=== PATIENT | male | born 1955 | race Caucasian/White ===

== ENCOUNTER → 2020-08-11 11:11 | Outpatient (BNV) | payer MEDICARE, MEDICAID, SELFPAY | PROVIDERS: PCP Internal Medicine; Visit Provider Internal Medicine Medical Oncology | DX: E83.119 Hemochromatosis, unspecified (principal) | CPT/HCPCS: 99213; 99214 ==

== ENCOUNTER 2020-08-15 13:39 | Outpatient (REF) | payer MEDICARE, MEDICAID, SELFPAY | END 2020-08-15 13:40 | disposition home or self-care (01) | LOC: HO.BBR 13:39 | PROVIDERS: Visit Provider Internal Medicine Medical Oncology | DX: Z13.89 Encounter for screening for other disorder (principal) ==

== ENCOUNTER 2020-11-10 09:47 | Outpatient (REF) | payer MEDICARE, MEDICAID, SELFPAY | END 2020-11-10 09:48 | disposition home or self-care (01) | LOC: HO.BBR 09:47 | PROVIDERS: Visit Provider Internal Medicine Medical Oncology | DX: Z13.89 Encounter for screening for other disorder (principal) ==

== ENCOUNTER 2021-01-10 10:49 | Outpatient (REF) | payer MEDICARE, MEDICAID, SELFPAY | END 2021-01-10 10:50 | disposition home or self-care (01) | LOC: HO.BBR 10:49 | PROVIDERS: Visit Provider Internal Medicine Medical Oncology | DX: Z13.89 Encounter for screening for other disorder (principal) ==

== ENCOUNTER 2021-03-30 14:06 | Outpatient (REF) | payer MEDICARE, MEDICAID, SELFPAY | END 2021-03-30 14:07 | disposition home or self-care (01) | LOC: HO.BBR 14:06 | PROVIDERS: PCP Internal Medicine; Visit Provider Internal Medicine Medical Oncology | DX: Z13.89 Encounter for screening for other disorder (principal) ==

== ENCOUNTER 2021-06-13 10:55 | Outpatient (REF) | payer MEDICARE, MEDICAID, SELFPAY | END 2021-06-13 10:56 | disposition home or self-care (01) | LOC: HO.BBR 10:55 | PROVIDERS: Visit Provider Internal Medicine Medical Oncology | DX: Z13.89 Encounter for screening for other disorder (principal) ==

== ENCOUNTER 2021-08-14 08:48 | Outpatient (REF) | payer MEDICARE, MEDICAID, SELFPAY | END 2021-08-14 08:49 | disposition home or self-care (01) | LOC: HO.BBR 08:48 | PROVIDERS: Visit Provider Internal Medicine Medical Oncology | DX: Z13.89 Encounter for screening for other disorder (principal) ==

== ENCOUNTER 2021-10-12 09:39 | Outpatient (REF) | payer MEDICARE, SELFPAY ==
[2021-10-12 11:42] LABS: Anion Gap 12 (12-20); Blood Urea Nitrogen 16 mg/dL (9-16); Calcium 9.8 mg/dL (8.4-10.2); Carbon Dioxide 29 mmol/L (22-29); Chloride 104 mmol/L (96-108); Estimated Glomerular Filt Rate > 60; Glucose Fasting 84 mg/dL (60-99); Potassium 4.4 mmol/L (3.3-5.1); Sodium 141 mmol/L (135-145)
[2021-10-12 12:07] LABS: Vitamin D 25-OH Total 17.9 ng/mL (>30)
[2021-10-12 12:10] LABS: HBsAGNum1 0.25 S/CO (0.00-0.99); Hepatitis B Surface Antigen Negative (Negative); ~HepC Num1 13.88 S/CO (0.00-0.79); ~Hepatitis C Antibody Reactive (Nonreactive)
[2021-10-12 12:14] LABS: HBc Num1 9.38 S/CO (0.00-0.79)
[2021-10-12 12:39] LABS: Vitamin B12 419 pg/mL (200-900)
[2021-10-12 13:16] LABS: HBS Num2 8.99 mIU/mL (0-7.99); HBS Num3 8.67 mIU/mL (0-7.99); HBc Num2 9.05 S/CO; HBc Num3 9.21 S/CO; Hepatitis B Core Antibody Reactive (Nonreactive); ~Hepatitis B Surface Antibody GRAYZONE (Nonreactive)
[2021-10-13 07:27] LABS: Hepatitis B Core Antibody IgM NON-REACTIVE (NON-REACTIVE)
== END 2021-10-12 09:40 | disposition home or self-care (01) ==
LOC: HO.HMGCLDS 09:39
PROVIDERS: PCP Internal Medicine; Visit Provider Internal Medicine
DX: R63.6 Underweight (principal); Z86.19 Personal history of other infectious and parasitic diseases; Z90.49 Acquired absence of other specified parts of digestive tract
CPT/HCPCS: 36415; 80048; 82306; 82607; 82746; 86704; 86705; 86706; 86803; 87340

== ENCOUNTER 2021-11-13 09:13 | Outpatient (REF) | payer MEDICARE, SELFPAY ==
[2021-11-13 09:37] LABS: MANUAL DIFF FLAG NO
[2021-11-13 09:38] LABS: Basophils Absolute Auto 0.1 X10*3/uL (0.0-0.2); Basophils Percent Auto 1.5 % (0-2); Eosinophils Absolute Auto 0.1 X10*3/uL (0.0-0.4); Eosinophils Percent Auto 2.3 % (0-4); Hematocrit 44.6 % (42.0-52.0); Hemoglobin 15.6 g/dl (14.0-18.0); Imm Gran Abs Auto 0.02 X10*3/uL (0.00-0.03); Imm Gran Pct Auto 0.3 % (0.0-0.4); Lymphocytes Absolute Auto 1.4 X10*3/uL (1.2-4.9); Lymphocytes Percent Auto 23.2 % (20-40); Mean Corpuscular Hemoglobin 34.4 pg (27.0-33.0); Mean Corpuscular Volume 98.5 fL (80.0-98.0); Mean Platelet Volume 9.3 fL (9.4-12.4); Monocytes Absolute Auto 0.4 X10*3/uL (0.1-1.2); Monocytes Percent Auto 6.7 % (2-11); Neutrophils Absolute Auto 3.9 x10*3/uL (2.0-8.3); Platelet Count 219 X10*3/uL (160-400); Red Blood Count 4.53 X10*6/uL (4.60-5.80); Red Cell Distribution Width 11.9 % (11.0-16.0)
[2021-11-13 11:36] LABS: Iron 205 mcg/dL (45-160); Percent Iron Saturation 83 % (15-50); Total Iron Binding Capacity 247 mcg/dL (228-428); Unsaturated Iron Binding 42 ug/dL
[2021-11-13 12:03] LABS: Ferritin 37 ng/mL (20-250)
== END 2021-11-13 09:14 | disposition home or self-care (01) ==
LOC: HO.BBR 09:13
PROVIDERS: Visit Provider Internal Medicine Medical Oncology
DX: E83.110 Hereditary hemochromatosis (principal)
CPT/HCPCS: 36415; 82728; 83540; 85025

== ENCOUNTER 2022-02-13 08:54 | Outpatient (REF) | payer MEDICARE, SELFPAY ==
[2022-02-13 09:43] LABS: MANUAL DIFF FLAG NO
[2022-02-13 09:46] LABS: Basophils Absolute Auto 0.1 X10*3/uL (0.0-0.2); Basophils Percent Auto 1.4 % (0-2); Eosinophils Absolute Auto 0.3 X10*3/uL (0.0-0.4); Eosinophils Percent Auto 5.2 % (0-4); Hematocrit 41.8 % (42.0-52.0); Hemoglobin 14.4 g/dl (14.0-18.0); Imm Gran Abs Auto 0.01 X10*3/uL (0.00-0.03); Imm Gran Pct Auto 0.2 % (0.0-0.4); Lymphocytes Absolute Auto 1.3 X10*3/uL (1.2-4.9); Lymphocytes Percent Auto 23.5 % (20-40); Mean Corpuscular HGB Conc 34.4 g/dl (31.0-36.0); Mean Corpuscular Hemoglobin 34.2 pg (27.0-33.0); Mean Corpuscular Volume 99.3 fL (80.0-98.0); Mean Platelet Volume 9.6 fL (9.4-12.4); Monocytes Absolute Auto 0.5 X10*3/uL (0.1-1.2); Monocytes Percent Auto 8.6 % (2-11); Neutrophils Absolute Auto 3.4 x10*3/uL (2.0-8.3); Neutrophils Percent Auto 61.1 % (45-73); Platelet Count 218 X10*3/uL (160-400); Red Blood Count 4.21 X10*6/uL (4.60-5.80); Red Cell Distribution Width 11.9 % (11.0-16.0); White Blood Count 5.6 X10*3/uL (4.8-10.8)
[2022-02-13 10:27] LABS: Iron 219 mcg/dL (45-160); Total Iron Binding Capacity < 236 mcg/dL (228-428); Unsaturated Iron Binding < 17 ug/dL
[2022-02-13 10:41] LABS: Ferritin 40 ng/mL (20-250)
== END 2022-02-13 08:55 | disposition home or self-care (01) ==
LOC: HO.BBR 08:54
PROVIDERS: Visit Provider Internal Medicine Medical Oncology
DX: E83.110 Hereditary hemochromatosis (principal)
CPT/HCPCS: 36415; 82728; 83540; 85025

== ENCOUNTER 2022-04-20 08:26 | Outpatient (REF) | payer MEDICARE, SELFPAY ==
--- NOTE | ~2022-04-20 | XR_ITS ---
EXAMINATION: XR LUMBOSACRAL SPINE CLINICAL INFORMATION: Radiculopathy lumbar region COMPARISON: None TECHNIQUE: Three views of the lumbosacral spine. FINDINGS: There is mild straightening of lumbar lordosis. There is grade 1 anterolisthesis of L3 over L4. The rest of the vertebral alignment is normal. There is loss of L2-L3 and L4-L5 disc heights with moderate ventral spondylosis. There is minimal dextroscoliosis lower lumbar spine. Mild canal stenosis suspected at the L3-L4, L4-L5 and L5/S1 disc levels. No visible acute fracture or lytic process seen. XR/XR lumbar spine 2-3V IMPRESSION: 1. Grade 1 anterolisthesis L3 over L4. 2. Degenerative disc changes L2-L3, L4-L5 and moderate ventral spondylosis. Suspect mild canal stenosis L3-L4, L4-L5 and likely L5-S1 disc levels. 3. There is mild dextroscoliosis, lower lumbar spine.
== END 2022-04-20 08:27 | disposition home or self-care (01) ==
LOC: HO.HMGCX 08:26
PROVIDERS: PCP Internal Medicine; Visit Provider Internal Medicine
DX: M54.16 Radiculopathy, lumbar region (principal)
CPT/HCPCS: 72100

== ENCOUNTER 2022-05-18 07:58 | Outpatient (REF) | payer MEDICARE, SELFPAY ==
[2022-05-18 08:06] LABS: MANUAL DIFF FLAG NO
[2022-05-18 08:13] LABS: Basophils Absolute Auto 0.1 X10*3/uL (0.0-0.2); Basophils Percent Auto 1.1 % (0-2); Eosinophils Absolute Auto 0.3 X10*3/uL (0.0-0.4); Eosinophils Percent Auto 5.7 % (0-4); Hematocrit 44.8 % (42.0-52.0); Hemoglobin 15.5 g/dl (14.0-18.0); Imm Gran Abs Auto 0.01 X10*3/uL (0.00-0.03); Imm Gran Pct Auto 0.2 % (0.0-0.4); Lymphocytes Absolute Auto 1.4 X10*3/uL (1.2-4.9); Lymphocytes Percent Auto 26.3 % (20-40); Mean Corpuscular HGB Conc 34.6 g/dl (31.0-36.0); Mean Corpuscular Hemoglobin 34.1 pg (27.0-33.0); Mean Corpuscular Volume 98.5 fL (80.0-98.0); Mean Platelet Volume 9.1 fL (9.4-12.4); Monocytes Absolute Auto 0.6 X10*3/uL (0.1-1.2); Monocytes Percent Auto 10.7 % (2-11); Platelet Count 238 X10*3/uL (160-400); Red Blood Count 4.55 X10*6/uL (4.60-5.80); Red Cell Distribution Width 12.1 % (11.0-16.0); White Blood Count 5.4 X10*3/uL (4.8-10.8)
[2022-05-18 09:24] LABS: Iron 240 mcg/dL (45-160); Total Iron Binding Capacity < 257 mcg/dL (228-428); Unsaturated Iron Binding < 17 ug/dL
== END 2022-05-18 07:59 | disposition home or self-care (01) ==
LOC: HO.BBR 07:58
PROVIDERS: Visit Provider Internal Medicine Medical Oncology
DX: E83.110 Hereditary hemochromatosis (principal)
CPT/HCPCS: 36415; 83540; 85025

== ENCOUNTER 2022-06-12 09:00 | Outpatient (RCR) | payer MEDICARE, SELFPAY ==
--- NOTE | 2022-06-07 11:29 | MHC.PT.EP ---
[facility] [place] Office [place] Office [place] Office [address] Elvis Becker [address] [phone] F: [phone] F: [phone] F: [phone] F: [phone] Physical Therapy Plan of Care Date of Evaluation: Date of Surgery: L4-L5 17 years ago. Diagnosis: pain in L hip. Assessment: Patient is a 66 year old R handed male who presents with s/s consistent with L hip pain. He does not work. 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 Patient past medical history includes cancer, smoking, lumbar surgery. Current impairments include pain, posture, ROM, strength, activity tolerance and functional mobility. Functional limitations include decreased ability to sit to stand, walk, lift, bend, yard work, and sleep. Patient is motivated with good rehab potential. Skilled PT will address impairments and functional limitations in order to achieve goals. Frequency and Duration: The patient will be seen 2x/week for 5 weeks Short Term Goals: I with HEP - 2 weeks Symmetrical ER b/l - 3 weeks TTP absent in piriformis - 3 weeks Hamstring 90/90 lacking 30 or less - 3 weeks Installation Helper Goals: LEFS 46/80 - 5 weeks 90/90 HS lacking 20 or less - 5 weeks Hip strength 4/5 grossly - 5 weeks Pain with ADLs 3/10 max - 5 weeks Treatment Plan: Modalities to reduce pain, spasms and effusion. Manual therapy to restore motion and function. Therapeutic exercise to improve strength and flexibility. Neuromuscular re-education for posture and balance. Therapeutic activities to return to functional activities of daily living. Electronically signed by: Arron Diaz, PT Please sign and return to therapist. Thank you for your referral.
--- NOTE | 2022-08-22 08:37 | MHC.PT.DC ---
[facility] [place] Office [place] Office [place] Office [address] Elvis Becker [address] [phone] F: [phone] F: [phone] F: [phone] F: [phone] Physical Therapy Discharge Report Diagnosis: pain in L hip. Date of Surgery: L4-L5 17 years ago. Date of Evaluation: 06/07/22 Date of Discharge: 08/22/22 Treatments to Date: 2 Cancellations to Date: No Shows to Date: Discharge Status: Independent with HEP Discharge Summary: 06/12/22: pt has been feeling better overall since last visit. still has some s/s but is stretched financially so is unsure of return. progressed stretching today. Patient is a 66 year old R handed male who presents with s/s consistent with L hip pain. He does not work. 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 Patient past medical history includes cancer, smoking, lumbar surgery. Current impairments include pain, posture, ROM, strength, activity tolerance and functional mobility. Functional limitations include decreased ability to sit to stand, walk, lift, bend, yard work, and sleep. Patient is motivated with good rehab potential. Skilled PT will address impairments and functional limitations in order to achieve goals. Electronically signed by: Arron Diaz, PT Please sign and return to therapist. Thank you for your referral.
== END 2022-08-22 08:37 | disposition home or self-care (01) ==
LOC: HO.PTCHIC 09:00
PROVIDERS: PCP Internal Medicine; Visit Provider Physician Assistant
DX: M25.552 Pain in left hip (principal)
CPT/HCPCS: 97110; 97140; 97162

== ENCOUNTER 2022-06-20 06:25 | Outpatient (REF) | payer MEDICARE, SELFPAY ==
[2022-06-20 12:02] LABS: Alanine Aminotransferase 13 U/L (0-40); Anion Gap 15 (12-20); Aspartate Amino Transferase 17 U/L (5-37); Blood Urea Nitrogen 19 mg/dL (9-16); Calcium 9.4 mg/dL (8.4-10.2); Carbon Dioxide 26 mmol/L (22-29); Chloride 107 mmol/L (96-108); Cholesterol 158 mg/dL; Estimated Glomerular Filt Rate > 60; Glucose Fasting 94 mg/dL (60-99); HDL Cholesterol 39 mg/dL; LDL Cholesterol Calculated 103 mg/dl; Potassium 4.1 mmol/L (3.3-5.1); Sodium 144 mmol/L (135-145); Triglycerides 82 mg/dL
[2022-06-20 12:06] LABS: Vitamin D 25-OH Total 24.9 ng/mL (>30)
[2022-06-20 12:13] LABS: Folate 13.6 ng/mL (> or = 4.0); Vitamin B12 350 pg/mL (200-900)
[2022-06-20 12:35] LABS: PSA,Total (Free>4and<10) 0.21 ng/mL (0.00-4.00)
== END 2022-06-20 06:26 | disposition home or self-care (01) ==
LOC: HO.HMGCLDS 06:25
PROVIDERS: PCP Internal Medicine; Visit Provider Internal Medicine
DX: Z00.01 Encounter for general adult medical examination with abnormal findings (principal); E83.119 Hemochromatosis, unspecified; F17.200 Nicotine dependence, unspecified, uncomplicated; Z86.19 Personal history of other infectious and parasitic diseases; Z87.19 Personal history of other diseases of the digestive system; Z12.5 Encounter for screening for malignant neoplasm of prostate
CPT/HCPCS: 36415; 80048; 80061; 82306; 82607; 82746; 84153; 84450; 84460

== ENCOUNTER 2022-07-03 07:57 | Outpatient (REF) | payer MEDICARE, SELFPAY ==
--- NOTE | 2022-07-03 10:05 | PFT_ITS ---
Forced vital capacity 91%, FEV1 43%, FEV1/FVC ratio is 36. XYR02-22 16% and MVV 39%. Post bronchodilator therapy, there is marked improvement in all flow volumes. Total lung capacity 100%. Residual volume 124%. Diffusion capacity 44%. CONCLUSION: Very severe obstructive airway disorder. There is partial reversibility after bronchodilator therapy. These findings are consistent with asthma/COPD overlap syndrome. Clinical correlation is recommended. MD KACIE Buatista/CHEIKH / [id number]
== END 2022-07-03 07:58 | disposition home or self-care (01) ==
LOC: HO.RESP 07:57
PROVIDERS: PCP Internal Medicine; Visit Provider Internal Medicine
DX: J98.01 Acute bronchospasm (principal); R05.9 Cough, unspecified; F17.210 Nicotine dependence, cigarettes, uncomplicated
CPT/HCPCS: 94060; 94727; 94729

== ENCOUNTER → 2022-07-17 09:46 | Outpatient (BNVA) | payer MEDICARE, SELFPAY | PROVIDERS: PCP Internal Medicine; Visit Provider Nurse Practitioner Family | DX: G62.9 Polyneuropathy, unspecified (principal) | CPT/HCPCS: 99202 ==

== ENCOUNTER → 2022-08-06 12:45 | Outpatient (BNVA) | payer MEDICARE, SELFPAY | PROVIDERS: PCP Internal Medicine; Visit Provider Anesthesiology | DX: M47.816 Spondylosis without myelopathy or radiculopathy, lumbar region (principal); M51.36 Other intervertebral disc degeneration, lumbar region | CPT/HCPCS: 99202 ==

== ENCOUNTER 2022-08-10 08:40 | Outpatient (REF) | payer MEDICARE, SELFPAY ==
[2022-08-10 08:58] LABS: MANUAL DIFF FLAG NO
[2022-08-10 09:01] LABS: Basophils Absolute Auto 0.1 X10*3/uL (0.0-0.2); Basophils Percent Auto 1.6 % (0-2); Eosinophils Absolute Auto 0.1 X10*3/uL (0.0-0.4); Eosinophils Percent Auto 2.5 % (0-4); Hematocrit 46.9 % (42.0-52.0); Hemoglobin 16.5 g/dl (14.0-18.0); Imm Gran Abs Auto 0.02 X10*3/uL (0.00-0.03); Imm Gran Pct Auto 0.4 % (0.0-0.4); Lymphocytes Absolute Auto 1.2 X10*3/uL (1.2-4.9); Lymphocytes Percent Auto 21.4 % (20-40); Mean Corpuscular HGB Conc 35.2 g/dl (31.0-36.0); Mean Corpuscular Hemoglobin 34.6 pg (27.0-33.0); Mean Corpuscular Volume 98.3 fL (80.0-98.0); Mean Platelet Volume 9.1 fL (9.4-12.4); Monocytes Absolute Auto 0.5 X10*3/uL (0.1-1.2); Monocytes Percent Auto 8.9 % (2-11); Neutrophils Absolute Auto 3.7 x10*3/uL (2.0-8.3); Neutrophils Percent Auto 65.2 % (45-73); Platelet Count 238 X10*3/uL (160-400); Red Blood Count 4.77 X10*6/uL (4.60-5.80); Red Cell Distribution Width 11.9 % (11.0-16.0); White Blood Count 5.6 X10*3/uL (4.8-10.8)
[2022-08-10 10:11] LABS: Alanine Aminotransferase 13 U/L (0-40); Albumin Level 4.4 g/dL (3.5-5.0); Alkaline Phosphatase 107 U/L (39-117); Anion Gap 10 (12-20); Aspartate Amino Transferase 16 U/L (5-37); Bilirubin Total 0.6 mg/dL (0.0-1.0); Blood Urea Nitrogen 15 mg/dL (9-16); Calcium 9.7 mg/dL (8.4-10.2); Carbon Dioxide 29 mmol/L (22-29); Chloride 103 mmol/L (96-108); Estimated Glomerular Filt Rate > 60; Ferritin 64 ng/mL (20-250); Glucose Random 86 mg/dL (60-115); Iron 245 mcg/dL (45-160); Percent Iron Saturation 91 % (15-50); Sodium 138 mmol/L (135-145); Total Iron Binding Capacity 270 mcg/dL (228-428); Total Protein 6.9 g/dL (6.5-8.0); Unsaturated Iron Binding < 25 ug/dL
[2022-08-13 13:37] LABS: Alpha Fetoprotein 2.1 ng/mL (<6.1)
== END 2022-08-10 08:41 | disposition home or self-care (01) ==
LOC: HO.BBR 08:40
PROVIDERS: Visit Provider Internal Medicine Medical Oncology
DX: E83.110 Hereditary hemochromatosis (principal)
CPT/HCPCS: 36415; 80053; 82105; 82728; 83540; 85025

== ENCOUNTER 2022-09-04 06:03 | Outpatient (REF) | payer MEDICARE, SELFPAY | END 2022-09-04 06:04 | disposition home or self-care (01) | LOC: CF 06:03 | PROVIDERS: Visit Provider Anesthesiology | DX: Z13.89 Encounter for screening for other disorder (principal) | CPT/HCPCS: J2795; Q9965; Q9967 ==

== ENCOUNTER 2022-10-12 08:48 | Outpatient (REF) | payer MEDICARE, SELFPAY ==
[2022-10-12 09:09] LABS: MANUAL DIFF FLAG NO
[2022-10-12 09:13] LABS: Basophils Absolute Auto 0.1 X10*3/uL (0.0-0.2); Basophils Percent Auto 0.9 % (0-2); Eosinophils Absolute Auto 0.2 X10*3/uL (0.0-0.4); Eosinophils Percent Auto 2.2 % (0-4); Hematocrit 48.6 % (42.0-52.0); Imm Gran Abs Auto 0.06 X10*3/uL (0.00-0.03); Imm Gran Pct Auto 0.7 % (0.0-0.4); Lymphocytes Percent Auto 22.3 % (20-40); Mean Corpuscular Hemoglobin 34.6 pg (27.0-33.0); Mean Platelet Volume 9.2 fL (9.4-12.4); Monocytes Percent Auto 10.9 % (2-11); Neutrophils Absolute Auto 5.5 x10*3/uL (2.0-8.3); Platelet Count 240 X10*3/uL (160-400); Red Blood Count 4.91 X10*6/uL (4.60-5.80); Red Cell Distribution Width 11.9 % (11.0-16.0); White Blood Count 8.7 X10*3/uL (4.8-10.8)
[2022-10-12 10:12] LABS: Ferritin 54 ng/mL (20-250)
[2022-10-12 10:35] LABS: Iron 255 mcg/dL (45-160); Percent Iron Saturation 91 % (15-50); Total Iron Binding Capacity 280 mcg/dL (228-428); Unsaturated Iron Binding < 25 ug/dL
== END 2022-10-12 08:49 | disposition home or self-care (01) ==
LOC: HO.BBR 08:48
PROVIDERS: Visit Provider Internal Medicine Medical Oncology
DX: E83.110 Hereditary hemochromatosis (principal)
CPT/HCPCS: 36415; 82728; 83540; 85025

== ENCOUNTER 2022-12-10 08:44 | Outpatient (REF) | payer MEDICARE, SELFPAY ==
[2022-12-10 09:00] LABS: MANUAL DIFF FLAG NO
[2022-12-10 09:07] LABS: Basophils Absolute Auto 0.1 X10*3/uL (0.0-0.2); Basophils Percent Auto 1.1 % (0-2); Eosinophils Absolute Auto 0.1 X10*3/uL (0.0-0.4); Eosinophils Percent Auto 1.1 % (0-4); Hematocrit 48.2 % (42.0-52.0); Hemoglobin 16.7 g/dl (14.0-18.0); Imm Gran Abs Auto 0.01 X10*3/uL (0.00-0.03); Imm Gran Pct Auto 0.2 % (0.0-0.4); Lymphocytes Absolute Auto 1.4 X10*3/uL (1.2-4.9); Lymphocytes Percent Auto 20.7 % (20-40); Mean Corpuscular HGB Conc 34.6 g/dl (31.0-36.0); Mean Corpuscular Volume 98.2 fL (80.0-98.0); Mean Platelet Volume 9.3 fL (9.4-12.4); Monocytes Absolute Auto 0.5 X10*3/uL (0.1-1.2); Monocytes Percent Auto 6.8 % (2-11); Neutrophils Absolute Auto 4.7 x10*3/uL (2.0-8.3); Neutrophils Percent Auto 70.1 % (45-73); Platelet Count 239 X10*3/uL (160-400); Red Blood Count 4.91 X10*6/uL (4.60-5.80); Red Cell Distribution Width 11.8 % (11.0-16.0); White Blood Count 6.6 X10*3/uL (4.8-10.8)
[2022-12-10 10:32] LABS: Iron 236 mcg/dL (45-160); Percent Iron Saturation 89 % (15-50); Total Iron Binding Capacity 265 mcg/dL (228-428); Unsaturated Iron Binding 29 ug/dL
[2022-12-10 10:50] LABS: Ferritin 34 ng/mL (20-250)
== END 2022-12-10 08:45 | disposition home or self-care (01) ==
LOC: HO.BBR 08:44
PROVIDERS: PCP Internal Medicine; Visit Provider Internal Medicine Medical Oncology
DX: E83.110 Hereditary hemochromatosis (principal)
CPT/HCPCS: 36415; 82728; 83540; 85025

== ENCOUNTER 2023-01-11 09:41 | Outpatient (REF) | payer MEDICARE, SELFPAY ==
--- NOTE | ~2023-01-11 | XR_ITS ---
EXAMINATION: XR lumbar spine 4V min CLINICAL INFORMATION: Reason for Exam M43.16 - Spondylolisthesis, lumbar region COMPARISON: 04/20/2022 TECHNIQUE: 5 views of the lumbar spine FINDINGS: 5 nonrib-bearing lumbar-type vertebral bodies. Vertebral body heights are maintained. Rightward scoliosis of the lumbar spine. Grade 1 anterolisthesis of L3 on L4. No subluxation between flexion and extension views. Mild multilevel degenerative disc disease with loss of disc space height, facet arthropathy and disc osteophyte complexes. This is worst at L4/L5. Related surgical clips are again noted. XR/XR lumbar spine 4V min IMPRESSION: * Moderate spondylosis of the lumbar spine, as above detailed. * Grade 1 anterolisthesis of L3 on L4.
== END 2023-01-11 09:42 | disposition home or self-care (01) ==
LOC: HO.HOSX 09:41
PROVIDERS: PCP Internal Medicine; Visit Provider Physician Assistant
DX: M43.16 Spondylolisthesis, lumbar region (principal)
CPT/HCPCS: 72110; 99202

== ENCOUNTER 2023-02-08 07:56 | Outpatient (REF) | payer MEDICARE, SELFPAY ==
[2023-02-08 08:06] LABS: MANUAL DIFF FLAG NO
[2023-02-08 08:09] LABS: Basophils Absolute Auto 0.1 X10*3/uL (0.0-0.2); Basophils Percent Auto 1.3 % (0-2); Eosinophils Absolute Auto 0.1 X10*3/uL (0.0-0.4); Eosinophils Percent Auto 2.1 % (0-4); Hematocrit 47.3 % (42.0-52.0); Hemoglobin 16.3 g/dl (14.0-18.0); Imm Gran Abs Auto 0.01 X10*3/uL (0.00-0.03); Imm Gran Pct Auto 0.2 % (0.0-0.4); Lymphocytes Absolute Auto 1.2 X10*3/uL (1.2-4.9); Lymphocytes Percent Auto 22.9 % (20-40); Mean Corpuscular HGB Conc 34.5 g/dl (31.0-36.0); Mean Corpuscular Hemoglobin 33.4 pg (27.0-33.0); Mean Corpuscular Volume 96.9 fL (80.0-98.0); Mean Platelet Volume 9.1 fL (9.4-12.4); Monocytes Absolute Auto 0.5 X10*3/uL (0.1-1.2); Monocytes Percent Auto 9.6 % (2-11); Neutrophils Absolute Auto 3.4 x10*3/uL (2.0-8.3); Neutrophils Percent Auto 63.9 % (45-73); Platelet Count 238 X10*3/uL (160-400); Red Blood Count 4.88 X10*6/uL (4.60-5.80); Red Cell Distribution Width 11.9 % (11.0-16.0); White Blood Count 5.3 X10*3/uL (4.8-10.8)
[2023-02-08 09:48] LABS: Iron 162 mcg/dL (45-160); Percent Iron Saturation 60 % (15-50); Total Iron Binding Capacity 270 mcg/dL (228-428); Unsaturated Iron Binding 108 ug/dL
[2023-02-08 09:56] LABS: Ferritin 21 ng/mL (20-250)
== END 2023-02-08 07:57 | disposition home or self-care (01) ==
LOC: HO.BBR 07:56
PROVIDERS: PCP Internal Medicine; Visit Provider Internal Medicine Medical Oncology
DX: E83.110 Hereditary hemochromatosis (principal)
CPT/HCPCS: 36415; 82728; 83540; 85025

== ENCOUNTER → 2023-02-12 12:41 | Outpatient (BNVA) | payer MEDICARE, SELFPAY | PROVIDERS: PCP Internal Medicine; Visit Provider Physician Assistant | DX: M43.16 Spondylolisthesis, lumbar region (principal) | CPT/HCPCS: 99212 ==

== ENCOUNTER 2023-03-26 06:00 | Inpatient (IN) | payer MEDICARE, SELFPAY ==
[2023-03-11 13:10] VITALS: BP 117/75; PULSE 64; RESP 18; O2SAT 97; BMI 17.2
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
[2023-03-11 14:25] LABS: Anion Gap 13 (12-20); Blood Urea Nitrogen 14 mg/dL (9-16); Calcium 9.4 mg/dL (8.4-10.2); Carbon Dioxide 27 mmol/L (22-29); Chloride 107 mmol/L (96-108); Creatinine Clr Calc Pharmacy 59.6; Estimated Glomerular Filt Rate > 60; Glucose Random 88 mg/dL (60-115); Potassium 4.2 mmol/L (3.3-5.1); Sodium 143 mmol/L (135-145)
[2023-03-26] VITALS (14 sets, daily range): BP systolic 129–147; BP diastolic 81–101; PULSE 62–75; RESP 16–20; TEMP 36.1–37.1; O2SAT 95–99
--- NOTE | ~2023-03-26 | FL_ITS ---
EXAMINATION: XR FLUOROSCOPY WITH IMAGES CLINICAL INFORMATION: L3-4, L4-5 Transkambin Lumbar Interbody fusion COMPARISON: Lumbar spine 01/11/2023 TECHNIQUE: Fluoroscopy Supervised By: Dr. Guerrero DOSE-56.4 mGy DAP-0.743 mGym2 TIME-1.6 min IMAGES-2 DOSE-25.5 mGy DAP-6.20 Gy.cm2 TIME-0.8 min IMAGES-2 FL/FL guidance in OR FINDINGS/IMPRESSION: Intraoperative spot views of lower lumbar spine show placement of bilateral transpedicular screws, vertical stabilization bars and disc spacers at L3-L4, L4-L5.
[2023-03-26] MEDS: Gabapentin 300 MG CAPSULE PO ×3 (06:35→20:04)
[2023-03-26] MEDS: methocarbamoL 750 MG TABLET PO (06:35)
[2023-03-26] MEDS: Lactated Ringers 1,000 ML 100 ML IVCONT (06:45)
[2023-03-26] MEDS: Albuterol Sulfate (0.083%) 2.5 MG/3 ML VIAL.NEB INHALE (06:54)
--- NOTE | 2023-03-26 07:06 | MHC.SHP ---
Pre-Procedural Eval Section A Date of Service: 03/26/23 The patient is an INPATIENT: No The History & Physical has been completed within 30 days and I have reviewed it.: No Section B Chief Complaint: lumbar fusion Relevant Family History (Specify if Yes): No Relevant Social History: Tobacco Use Present Medications: see Short Stay Collaborative assessment Medical History: Significant History (Iscjemic bowel disease excluding an Oblique Lumbar Interbody fusion) Allergies: Allergies Allergy/AdvReac Type Severity Reaction Status Date / Time latex [LATEX] Allergy Intermediate BLISTERS Verified 01/11/23 10:11 levofloxacin [From LEVAQUIN] Allergy Intermediate GI Verified 03/11/23 13:07 distress/flushing/burning Review of Systems Sugical H&P ROS: Negative: Constitution, Cardiovascular, Respiratory, Neurological, Psychiatric, Hem-Onc, Allergic/Immunologic, Gastrointestinal, Genitourinary, Musculoskeletal, Integumentary, Endocrine and Eyes/Ears/Nose/Throat Exam Surgical H&P Exam: Not Evaluated: HEENT, Not Evaluated: Heart, Not Evaluated: Lungs, Not Evaluated: Extremities, Not Evaluated: Abdomen, Not Evaluated: Skin and Not Evaluated: Neurological Plan Diagnosis/Plan: Unchanged I have reviewed the history and physical and performed a pertinent physical examination on my patient. No changes have occurred unless specified. Oblique Lateral Lumbar Interbody Fusion (Transkambin) L3-4, L4-5 Time Spent With Patient Time: Total time managing care of this patient today ___10_ minutes.
--- NOTE | 2023-03-26 10:30 | P.OP_ITS ---
Operative Note Operative Note Date of Service: 03/26/23 Narrative: Preoperative Diagnosis: lumbar degenerative scoliosis, lumbar spondylolisthesis and degenerative disc disease Procedure: 1) L3-4 and L4-5 oblique lateral lumbar interbody fusion with discectomy, preparation of the endplates and placement of a bullet cage packed with allograft, anterior to the transverse process and modified prone position, with intraoperative biplanar fluoroscopy imaging and electrophysiological monitoring 2) L3-L5 posterior minimally invasive pedicle screw placement and posterior lateral instrumentation and fusion with electrophysiological monitoring Consent Informed Consent was obtained for this operation. I have explained the nature, purpose and benefits of the operation. I have discussed the risks and benefit of the operation including possible complications or adverse events with patie nt/family. Alternative(s) were discussed with the patient with their relative benefits and risks as well as the consequences of not accepting the operation were included in obtaining consent. Surgeon: FRANCIS DUPONT MD, PHD Procedure Assisted By: Description of Procedure: This 67-year-old man with suffering from back pain left lumbar radiculopathy with imaging showing an L3-4 lumbar spondylolisthesis, degenerative disc disease and a lumbar degenerative scoliosis. The patient was offered an oblique lumbar lateral interbody fusion followed by a posterior lateral instrumented fusion L3-4 and L4-5. The procedure and complications were explained and the patient was consented. The patient was brought to the operating room and endotracheally intubated. The patient was put in a prone position on the Nick spine table. 2C arms were installed for fluoroscopy. Prepping and draping was done followed by timeout. The landmarks, including spinal processes, transverse processes, disc space, endplates and pedicles are identified and marked. The following steps are taken for the L3-4 and L4-5 levels: Cage size 10 mm high and 33 mm long titanium . A small incision was made superior to the mid iliac crest. The muscle fascia 3 muscle layers were split and then using biplanar fluoroscopy visualization, under electrophysiological monitoring and stimulation, we introduced an electrophysiological probe through the retroperitoneal space into the desired disc anterior to the transverse process and then passed it into the disc space after finding a silent window. The sleeve was retained and the probe was removed, then the K wire was passed sequentially into the disc space. A dilating tube was then passed along the same route. Following this, a working channel was manually held in position while a series of disc cleaning tools were passed through the channel to remove the affected disc under clear and direct biplanar fluoroscopic visualization, decompress the nerve roots and equal corticated vertebral endplates at this segment. Arthrodesis of the intervertebral space for an anterior retroperitoneal exposure and application of intervertebral biomechanical device was then accomplished by using the working channel that had been placed into the retroperitoneal space anterior to the transverse process. After adequate decompression and preparation of the endplates, we then put allograft anterior into the disc space followed by a titanium interbody spacer, which is packed tightly with allograft bone for stabilization and arthrodesis of the anterior vertebral space and inserted the cage into the midportion of the intervertebral disc. This again was done on the biplanar fluoroscopic visualization. All bone was confined to the borders of the disc space. The following steps are then taken for the L3-L5 levels: Bilateral L3 screws with a diameter of 6.5 x 45 mm, bilateral L4 screws with a diameter of 6.5 x 50 mm, bilateral L5 screws with a diameter of 6.5 x 45 mm. 2C arms were installed for fluoroscopy. A left paramedian incision was made lateral from the L3 pedicle. The Pediguard tap was used to create a transpedicular trajectory into the vertebral body. The K wire was inserted. The steps were repeated for the right L3, bilateral L4 and bilateral L5 pedicles, A specially designed instrument was passed over the K wires to decorticate the posterior lateral gut ter. A total of 6 pedicle screws were inserted with the above-mentioned diameters for the L3 and L5 level. Bilaterally a 80 mm charlotte was inserted and locked down with locking caps. Final x-rays and AP and lateral projection showed good position of the interbody device and instrumentation. Allograft was laid down in the posterior lateral gutter to complete the posterior lateral fusion. The paramedian incisions and the incision in the flank were closed in 2 layers. Steri-Strips were used to approximate the incisions. An OpSite with Tegaderm was used to cover the incision. All sponge and needle counts were correct. The patient was extubated and transported in a stable condition to the recovery room. e. Anesthesia: General Estimated Blood Loss (ml): 35 Specimen: None Duration of Surgery: 2 hours Postoperative Plan: Admit to floor for monitoring
[2023-03-26] MEDS: HYDROmorphone HCl 0.5 MG/0.5 ML SYRINGE 0.25 MG IVPUSH ×2 (11:00→11:20)
[2023-03-26] MEDS: oxyCODONE HCl Immed Release 5 MG TABLET PO (11:03)
[2023-03-26] MEDS: ceFAZolin Sodium/Dextrose,Iso 2 GM/50 ML PIGGYBACK IV ×2 (13:33→20:04)
[2023-03-26] MEDS: HYDROmorphone HCl 1 MG/ML SYRINGE IVPUSH (13:53)
[2023-03-26] MEDS: Cyclobenzaprine HCl 5 MG TABLET PO (13:53)
[2023-03-26] MEDS: Ketorolac Tromethamine 15 MG/ML VIAL IVPUSH ×2 (15:58→21:56)
[2023-03-26] MEDS: Acetaminophen 1,000 MG/100 ML PIGGYBACK 400 MG IV ×2 (15:58→21:56)
[2023-03-26] MEDS: Docusate Sodium 100 MG CAPSULE PO (20:03)
[2023-03-26] MEDS: Famotidine 20 MG TABLET PO (20:04)
[2023-03-27] MEDS: ceFAZolin Sodium/Dextrose,Iso 2 GM/50 ML PIGGYBACK IV (02:18)
[2023-03-27 04:00] VITALS: BP 139/77; PULSE 72; RESP 19; TEMP 36.7; O2SAT 98
[2023-03-27] MEDS: Ketorolac Tromethamine 15 MG/ML VIAL IVPUSH ×2 (04:01→11:02)
[2023-03-27] MEDS: Acetaminophen 1,000 MG/100 ML PIGGYBACK 400 MG IV (04:02)
[2023-03-27 04:32] VITALS: RESP 18
[2023-03-27 07:34] VITALS: BP 122/79; PULSE 68; RESP 16; TEMP 36.7; O2SAT 97
[2023-03-27] MEDS: Docusate Sodium 100 MG CAPSULE PO (07:57)
[2023-03-27] MEDS: oxyCODONE HCl Immed Release 5 MG TABLET PO (07:57)
[2023-03-27] MEDS: Gabapentin 300 MG CAPSULE PO (07:57)
[2023-03-27] MEDS: Famotidine 20 MG TABLET PO (07:57)
--- NOTE | 2023-03-27 08:59 | PM.DS ---
DS: Providers Provider Date of Service: 03/27/23 Date of admission: 03/26/23 06:00 Date of discharge: 03/27/23 Primary care physician: Chantell Gamino MD Attending physician on admission: Ti Martin Attending physician on discharge: Ti Martin DS: Diagnosis Discharge Diagnosis (1) Status post lumbar and lumbosacral fusion by anterior technique: Status: Acute DS: Summary Hospital Course Hospital Course: He 67-year-old male underwent an L3-4 and L4-5 oblique lateral lumbar interbody fusion on 2022 for back pain and bilateral leg pain. Postoperatively, he has hypoesthesia in the L4 dermatomal and a grade 3/5 weakness of the left quadriceps from nerve irritation due to the approach. I explained to the patient today as this will recover over time. The physical therapy evaluated the patient and wants a walker and a knee brace before discharge. Status at Discharge Functional status at discharge: uses cane/walker Overall status at discharge: patient is progressing back to baseline Time Spent with Patient Time attestation: Total time managing care of this patient today ___ 10 _ minutes. Discharge coordination time: Less than 30 minutes Quality: Safe Use of Opioids Does Pt have an Active Cancer Diagnosis on the Problem List?: No Quality: Stroke Does the patient have a stroke diagnosis?: No Physical Exam Vital Signs: Vital Signs: Last Vital Signs Temp 98.0 F 03/27/23 07:34 Pulse 68 03/27/23 07:34 Resp 16 03/27/23 07:34 BP 122/79 03/27/23 07:34 Pulse Ox 97 03/27/23 07:34 O2 Del Method Room Air 03/27/23 07:34 O2 Flow Rate 5 03/26/23 11:05 BMI result Body Mass Index 17.2 Neuro: Motor exam (neuro): Other motor observations present (Grade 3 L5 paresis left quadriceps) Sensory Exam: other (Left L4 hypoesthesia) Discharge Plan Discharge Anticipated Discharge Date/Time: 03/27/23 09:05 Patient Disposition: Home, Self-Care Discharge Diagnosis: Status post L3-4 and L4-5 lumbar fusion, oblique lateral lumbar interbody fusion Referrals: Chantell Gamino MD [Primary Care Provider] - 1 Week Discharge Medications: New oxycodone 5 mg tablet 5 mg PO Q6H PRN (Reason: pain) Qty: 30 0RF Rx Instructions: Partial Fill upon patient request. gabapentin 300 mg capsule 300 mg PO TID Qty: 60 0RF Continued diclofenac sodium [Arthritis Pain (diclofenac)] 1 % gel 4 g topical QID PRN (Reason: joint pains) Qty: 100 0RF Rx Instructions: apply to single knee, ankle, foot; for foot includes sole/toes/top of foot albuterol sulfate 90 mcg/actuation HFA aerosol inhaler 2 puff inhalation QID PRN (Reason: wheezing) ashwagandha extract 120 mg Capsule 129 mg PO DAILY No Action tramadol 50 mg tablet 50 mg PO QID PRN (Reason: pain, moderate) 30 Days Qty: 120 3RF Discharge Orders: Discharge Order (Routine); Ordered 03/27/23 Ordered By: Ti Martin Activity on Discharge: As tolerated Stand Alone Forms: Patient Portal Discharge page Activity Restrictions/Additional Instructions: After your spinal surgery we ask you to observe the following restrictions/guidelines: Activity: It is normal to feel some discomfort as you increase your activity, but that will improve with time. We ask you avoid heavy lifting or acitivities that cause pain. As a general rule, 8lbs is a safe limit for lifting right after surgery. Walk as much as you feel comfortable but not to exhaustion. You will feel extra tired the first few days after surgery. Stay well hydrated. It is OK to walk up and down stairs You may return to driving when you are off narcotics (such as vicodin, oxycodone, dilaudid, etc), and you are back to normal functional capacity. If you have any concerns please check with office before driving. Return to work is specific to each patient and each surgery, so please speak with your doctor/PA at first follow up. Please bring paperwork such as FMLA at that time if you need it filled out. Medications: We will give you a short supply of narcotics after surgery (usually one weeks worth). If you need more please call the office but do not use more than prescribed. You will need to give our office 48 hours notice if you need narcotics refilled and we do not fill narcotics on weekends or evenings. If you are on a narcotic, it is a good idea to take a stool softener such as colace or senna to avoid constipation If you take blood thinner such as aspirin, Plavix, Coumadin, Effient, Eliquis etc for conditions such as Afib, DVT, Pulmonary embolus, coronary disease, stents etc please speak with your surgeon about specific details as to when you can resume these medications. You can resume NSAIDs on post op day 1 (eg: Motrin, Naproxen, etc). Follow up: Please call the office, , after surgery to arrange a 3 week follow up for wound check. Wound Care: You may remove your dressing on the first day after surgery. You may leave open to air. Please do not remove the steri strips underneath. they will fall off on their own in one week. IT IS NORMAL FOR THE WOUND TO OOZE OR BE BLOODY FOR A FEW DAYS AFTER SURGERY. IF THIS HAPPENS JUST PLACE NEW DRESSING OVER IT TO AVOID STAINING CLOTHES. You may shower on post op day # 1 We ask that you do not let the water soak the wound. If it does get wet, just towel dry lightly. Please do not scrub your incision or place any type of chemical/ointment on the wound. No tub baths, pools or jacuzzis for one month. If you have any leaking or redness from your wound, or fevers, please call office Care Plan Goals: PT to improve strenght Health Concerns: none Plan of Treatment: physical therapy Assessment: see above
--- NOTE | 2023-03-27 09:16 | P.F2F_ITS ---
Service Date Service Date: 03/27/23 Encounter Date of encounter: 03/27/23 Reasons for Services Signs and symptoms assessed: Left quadriceps weakness and numbness. Needs help with ambulation Reason for physical therapy: home safety and mobility, therapeutic exercises and gait/transfer training Homebound: Leaving the home is medically contraindicated at this time without the asist of a device and/or another person due th the listed conditions above and below. Reason homebound: unsteady gait / fall risk Certification: Based on the above findings, I certify that this patient is confined to the home and needs intermittent half-way care, physical therapy and/or speech therapy, or continues to need occupational therapy. The patient is under my care, and I have initiated the establishment of the plan of care. The patient will be followed by a physician who will periodically review the plan of care. Time Spent With Patient Time: Total time managing care of this patient today ___ 10 _ minutes.
--- NOTE | 2023-03-27 10:25 | MHC.CM.PN ---
pt dcd home with vna today pt has own transport home prt lives w/
--- NOTE | 2023-03-27 10:45 | PM.DS ---
DS: Providers Provider Date of Service: 03/27/23 Date of admission: 03/26/23 06:00 Primary care physician: Chantell Gamino MD DS: Diagnosis Discharge Diagnosis (1) Status post lumbar and lumbosacral fusion by anterior technique: Status: Acute DS: Summary Hospital Course Hospital Course: He 67-year-old male underwent an L3-4 and L4-5 oblique lateral lumbar interbody fusion on 2022 for back pain and bilateral leg pain. Postoperatively, he has hypoesthesia in the L4 dermatomal and a grade 3/5 weakness of the left quadriceps from nerve irritation due to the approach. I explained to the patient today as this will recover over time. The physical therapy evaluated the patient and wants a walker and a knee brace before discharge. Time Spent with Patient Time attestation: Total time managing care of this patient today ____ minutes. Discharge coordination time: Less than 30 minutes Quality: Safe Use of Opioids Does Pt have an Active Cancer Diagnosis on the Problem List?: No Quality: Stroke Does the patient have a stroke diagnosis?: No Physical Exam Vital Signs: Vital Signs: Last Vital Signs Temp 98.0 F 03/27/23 07:34 Pulse 68 03/27/23 07:34 Resp 16 03/27/23 07:34 BP 122/79 03/27/23 07:34 Pulse Ox 97 03/27/23 07:34 O2 Del Method Room Air 03/27/23 07:34 O2 Flow Rate 5 03/26/23 11:05 BMI result Body Mass Index 17.2 Discharge Plan Discharge Anticipated Discharge Date/Time: 03/27/23 09:05 Patient Disposition: Home, Self-Care Discharge Diagnosis: Status post L3-4 and L4-5 lumbar fusion, oblique lateral lumbar interbody fusion Referrals: Chantell Gamino MD [Primary Care Provider] - 1 Week Discharge Medications: New oxycodone 5 mg tablet 5 mg PO Q6H PRN (Reason: pain) Qty: 30 0RF Rx Instructions: Partial Fill upon patient request. oxycodone 5 mg tablet 5 mg PO Q6H PRN (Reason: pain) Qty: 30 0RF Rx Instructions: Partial Fill upon patient request. gabapentin 300 mg capsule 300 mg PO TID Qty: 60 0RF gabapentin 300 mg capsule 300 mg PO TID Qty: 60 0RF Continued diclofenac sodium [Arthritis Pain (diclofenac)] 1 % gel 4 g topical QID PRN (Reason: joint pains) Qty: 100 0RF Rx Instructions: apply to single knee, ankle, foot; for foot includes sole/toes/top of foot albuterol sulfate 90 mcg/actuation HFA aerosol inhaler 2 puff inhalation QID PRN (Reason: wheezing) ashwagandha extract 120 mg Capsule 129 mg PO DAILY Discontinued tramadol 50 mg tablet 50 mg PO QID PRN (Reason: pain, moderate) 30 Days Qty: 120 3RF Discharge Orders: Discharge Order (Routine); Ordered 03/27/23 Ordered By: Ti Mratin Activity on Discharge: As tolerated Stand Alone Forms: Patient Portal Discharge page Activity Restrictions/Additional Instructions: After your spinal surgery we ask you to observe the following restrictions/guidelines: Activity: It is normal to feel some discomfort as you increase your activity, but that will improve with time. We ask you avoid heavy lifting or acitivities that cause pain. As a general rule, 8lbs is a safe limit for lifting right after surgery. Walk as much as you feel comfortable but not to exhaustion. You will feel extra tired the first few days after surgery. Stay well hydrated. It is OK to walk up and down stairs You may return to driving when you are off narcotics (such as vicodin, oxycodone, dilaudid, etc), and you are back to normal functional capacity. If you have any concerns please check with office before driving. Return to work is specific to each patient and each surgery, so please speak with your doctor/PA at first follow up. Please bring paperwork such as FMLA at that time if you need it filled out. Medications: We will give you a short supply of narcotics after surgery (usually one weeks worth). If you need more please call the office but do not use more than prescribed. You will need to give our office 48 hours notice if you need narcotics refilled and we do not fill narcotics on weekends or evenings. If you are on a narcotic, it is a good idea to take a stool softener such as colace or senna to avoid constipation If you take blood thinner such as aspirin, Plavix, Coumadin, Effient, Eliquis etc for conditions such as Afib, DVT, Pulmonary embolus, coronary disease, stents etc please speak with your surgeon about specific details as to when you can resume these medications. You can resume NSAIDs on post op day 1 (eg: Motrin, Naproxen, etc). Follow up: Please call the office, , after surgery to arrange a 3 week follow up for wound check. Wound Care: You may remove your dressing on the first day after surgery. You may leave open to air. Please do not remove the steri strips underneath. they will fall off on their own in one week. IT IS NORMAL FOR THE WOUND TO OOZE OR BE BLOODY FOR A FEW DAYS AFTER SURGERY. IF THIS HAPPENS JUST PLACE NEW DRESSING OVER IT TO AVOID STAINING CLOTHES. You may shower on post op day # 1 We ask that you do not let the water soak the wound. If it does get wet, just towel dry lightly. Please do not scrub your incision or place any type of chemical/ointment on the wound. No tub baths, pools or jacuzzis for one month. If you have any leaking or redness from your wound, or fevers, please call office Care Plan Goals: PT to improve strenght Health Concerns: none Plan of Treatment: physical therapy Assessment: see above
--- NOTE | 2023-03-27 12:35 | MHC.CM.PN ---
pt s vna cancelled by dr beauchamp
--- NOTE | 2023-03-27 14:11 | HO.POSTANES ---
Post Anesthesia Evaluation Post Anesthesia Evaluation Date of Service: 03/27/23 Vital Signs: Vital Signs Temp Pulse Resp BP Pulse Ox O2 Del Method 03/27/23 07:34 98.0 F 68 16 122/79 97 Room Air 03/27/23 04:32 18 03/27/23 04:00 98.1 F 72 19 139/77 98 Room Air Anesthesia: General Endotracheal-GETA Mental Status: Awake Pain Control: Satisfactory Nausea/Vomiting: None Hydration: Adequate Anesthesia-Related Issues: No Anes. Related Issues
== END 2023-03-27 11:41 | disposition home or self-care (01) | DRG 458 ==
LOC: HO.SSSA 06:06 → HO.S3 11:53
PROVIDERS: Neurological Surgery; Nurse Practitioner; Admitting Provider Physician Assistant; PCP Internal Medicine; Visit Provider Physician Assistant
PROC: 0SG10A0 Fusion of 2 or more Lumbar Vertebral Joints with Interbody Fusion Device, Anterior Approach, Anterior Column, Open Approach (ICD-10-PCS; principal; 2023-03-26 07:30)
DX: M43.16 Spondylolisthesis, lumbar region (principal); M41.56 Other secondary scoliosis, lumbar region; M51.36 Other intervertebral disc degeneration, lumbar region; Z87.891 Personal history of nicotine dependence; Z91.040 Latex allergy status; Z79.899 Other long term (current) drug therapy
CPT/HCPCS: 36415; 80048; 85027; 93005; 94640; 97116; 97162; C1713; J0131; J0330; J0690; J1100; J1170; J1885; J2250; J2370; J2371; J2405; J3010; L8699

== ENCOUNTER → 2023-03-26 06:00 | Outpatient (BNV) | payer MEDICARE, SELFPAY | PROVIDERS: Admitting Provider Physician Assistant; PCP Internal Medicine; Visit Provider Neurological Surgery | DX: M43.16 Spondylolisthesis, lumbar region (principal) | CPT/HCPCS: 20930; 22558; 22585; 22612; 22614; 22840; 22853; 63056; 63057; 99499; G0180 ==

== ENCOUNTER 2023-04-24 13:46 | Outpatient (REF) | payer MEDICARE, SELFPAY ==
[2023-04-24 14:01] LABS: MANUAL DIFF FLAG NO
[2023-04-24 14:02] LABS: Basophils Absolute Auto 0.1 X10*3/uL (0.0-0.2); Basophils Percent Auto 1.2 % (0-2); Eosinophils Absolute Auto 0.2 X10*3/uL (0.0-0.4); Eosinophils Percent Auto 2.3 % (0-4); Hematocrit 43.9 % (42.0-52.0); Hemoglobin 14.9 g/dl (14.0-18.0); Imm Gran Abs Auto 0.02 X10*3/uL (0.00-0.03); Imm Gran Pct Auto 0.3 % (0.0-0.4); Lymphocytes Percent Auto 26.7 % (20-40); Mean Corpuscular HGB Conc 33.9 g/dl (31.0-36.0); Mean Corpuscular Hemoglobin 33.1 pg (27.0-33.0); Mean Corpuscular Volume 97.6 fL (80.0-98.0); Monocytes Absolute Auto 0.7 X10*3/uL (0.1-1.2); Neutrophils Absolute Auto 4.4 x10*3/uL (2.0-8.3); Neutrophils Percent Auto 59.5 % (45-73); Platelet Count 289 X10*3/uL (160-400); Red Cell Distribution Width 12.9 % (11.0-16.0); White Blood Count 7.4 X10*3/uL (4.8-10.8)
[2023-04-24 15:40] LABS: Iron 120 mcg/dL (45-160); Percent Iron Saturation 48 % (15-50); Total Iron Binding Capacity 252 mcg/dL (228-428); Unsaturated Iron Binding 132 ug/dL
[2023-04-24 15:44] LABS: Ferritin 30 ng/mL (20-250)
== END 2023-04-24 13:47 | disposition home or self-care (01) ==
LOC: HO.BBR 13:46
PROVIDERS: Visit Provider Internal Medicine Medical Oncology
DX: E83.110 Hereditary hemochromatosis (principal)
CPT/HCPCS: 36415; 82728; 83540; 85025

== ENCOUNTER 2023-04-24 14:48 | Outpatient (AMB) | payer MEDICARE, SELFPAY ==
--- NOTE | 2023-04-24 15:40 | A.SPINEOV_ITS ---
Intake Intake Visit Reasons: 1st post op Intake Note: Mr. Boyd is here today for his 1st post-op. Videogame Tester Required: No Allergies latex [LATEX] Allergy (Intermediate, Verified 04/09/23 13:49) BLISTERS levofloxacin [From LEVAQUIN] Allergy (Intermediate, Verified 04/09/23 13:49) GI distress/flushing/burning Assessment & Plan Assessment & Plan (1) Status post lumbar and lumbosacral fusion by anterior technique: Code(s): Z98.1 - Arthrodesis status Plan dear colleague, On 04/24/2023, I saw for 1st postoperative visit Tor boyd. He underwent a two-level oblique lateral lumbar interbody fusion 3 weeks ago. His original radiculopathy is gone. He did develop left iliopsoas weakness would give regard of his left leg and pain 3 days postoperatively wiith a small patch of numbness over the left cardenas. He manages the pain with tramadol, naproxen, Tylenol gabapentin. The strength is improving and the pain is relatively well controlled. I told the patient that the pain is coming from the extraforaminal approach for swelling of the nerve root and that this should subside in approximately 6 weeks postoperative. I wrote him a new script for gabapentin 300 mg 4 times a day. I would like to follow up in 6 weeks with a standing x- ray of the lumbar spine. Thank you for the referral, Ti Martin MD, PhD Spine Fellowship Trained Neurosurgeon Director, [facility] Medications: New gabapentin 300 mg 4 times a day 300 mg PO TID 90 caps 0RF nerve pain Coding Level of Care Code Global (05278) Diagnoses Status post lumbar and lumbosacral fusion by anterior technique Z98.1
== END 2023-04-24 16:14 | disposition home or self-care (01) ==
PROVIDERS: PCP Internal Medicine; Visit Provider Neurological Surgery
DX: Z98.1 Arthrodesis status (principal)
CPT/HCPCS: 99024

== ENCOUNTER 2023-06-05 11:08 | Outpatient (REF) | payer MEDICARE, SELFPAY ==
--- NOTE | ~2023-06-05 | XR_ITS ---
EXAMINATION: XR LUMBOSACRAL SPINE WITH OBLIQUES CLINICAL INFORMATION: Radiculopathy COMPARISON: 01/11/2023 TECHNIQUE: AP, lateral views and lateral flexion and extension views of lumbar spine. FINDINGS: Patient is status post posterior fusion at the level of L3-L5 with disc spacers seen in position of disks of L3-L4 and L4-L5. Flexion and extension views reveal no excessive mobility or instability of hardware. There is narrowing of L2-L3. XR/XR lumbar spine 4V min IMPRESSION: Satisfactory position of hardware without evidence of instability
== END 2023-06-05 11:09 | disposition home or self-care (01) ==
LOC: HO.HOSX 11:08
PROVIDERS: Visit Provider Physician Assistant
DX: M54.16 Radiculopathy, lumbar region (principal); Z98.1 Arthrodesis status
CPT/HCPCS: 72110

== ENCOUNTER 2023-06-05 12:30 | Outpatient (AMB) | payer MEDICARE, SELFPAY ==
--- NOTE | 2023-06-05 13:28 | HO.SPINEOV ---
Intake Intake Visit Reasons: 6 weeks f/u with xrays Allergies latex [LATEX] Allergy (Intermediate, Verified 04/09/23 13:49) BLISTERS levofloxacin [From LEVAQUIN] Allergy (Intermediate, Verified 04/09/23 13:49) GI distress/flushing/burning Assessment & Plan Assessment & Plan (1) Status post lumbar and lumbosacral fusion by anterior technique: Code(s): Z98.1 - Arthrodesis status Plan Procedure: L3-4, L4-5 MESERET Lentz comes in today for his 2nd postoperative visit. Per his previous note from his visit with Dr. Martin he developed a left iliopsoas weakness with left leg and pain. He states that the pain has maintained at the level that it was when he initially reported it postoperatively. He states that he also has some nonspecific numbness over the anterior tibialis and medial thigh. He manages the pain with tramadol, naproxen, tylenol & gabapentin. This is likely due to the extraforaminal approach with the swelling of the nerve root, as previously reported by Dr. Martin. It is unfortunate that his symptoms have continued to persist, but the patient was evaluated alongside Dr. Martin who feels confident they will subside with time. Full strength and mobility in UE / LE, with disclosed pain when testing lower extremities. Likely L4 dermatomal distribution numbness as described above. No myelopathic reflexes. The patient will be sent for CT scan of the lumbar spine to further evaluate the positioning of posterior instrumentation. He will need to be scheduled with Dr. Martin for a follow-up visit once the CT scan is completed. His gabapentin was also refill this he states this provides him the most relief, even more so than his tramadol. Orders: Orders CT lumbar spine wo IV con Today Z98.1 - Arthrodesis status XR lumbar spine 4V min Today M54.16 - Radiculopathy, lumbar region Medications: Changed From gabapentin 600 mg (2 x 300 mg) PO TID 60 caps 0RF neuropathy s/p spinal surgery To gabapentin 600 mg (2 x 300 mg) PO TID PRN 60 caps 0RF neuropathy s/p spinal surgery Coding Level of Care Code Global (53469) Diagnoses Status post lumbar and lumbosacral fusion by anterior technique Z98.1
== END 2023-06-05 13:30 | disposition home or self-care (01) ==
PROVIDERS: PCP Internal Medicine; Visit Provider Physician Assistant
DX: Z98.1 Arthrodesis status (principal)
CPT/HCPCS: 99024

== ENCOUNTER 2023-06-20 07:41 | Outpatient (AMB) | payer MEDICARE, SELFPAY ==
[2023-06-20 07:50] VITALS: BP 110/70; PULSE 67; O2SAT 98; BMI 17.2
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
== END 2023-06-20 09:44 | disposition home or self-care (01) ==
PROVIDERS: Visit Provider Internal Medicine
DX: Z00.00 Encounter for general adult medical examination without abnormal findings (principal); Z86.39 Personal history of other endocrine, nutritional and metabolic disease; E83.110 Hereditary hemochromatosis; R63.6 Underweight; Z86.19 Personal history of other infectious and parasitic diseases; G62.9 Polyneuropathy, unspecified; M51.36 Other intervertebral disc degeneration, lumbar region; Z98.1 Arthrodesis status
CPT/HCPCS: 99397

== ENCOUNTER 2023-06-24 06:01 | Outpatient (REF) | payer MEDICARE, SELFPAY ==
[2023-06-24 12:30] LABS: Folate 11.8 ng/mL (> or = 4.0); Vitamin B12 304 pg/mL (200-900)
[2023-06-24 12:44] LABS: Cholesterol 151 mg/dL (<200); HDL Cholesterol 38 mg/dL (>40); LDL Cholesterol Calculated 93 mg/dL (<100); Triglycerides 104 mg/dL (<150)
[2023-06-24 12:46] LABS: Vitamin D 25-OH Total 32.7 ng/mL (>30)
[2023-06-26 18:39] LABS: HCV Log PCR <1.18 NOT DETECTED Log IU/mL (NOT DETECTED); HepC Viral Load <15 NOT DETECTED IU/mL (NOT DETECTED)
== END 2023-06-24 06:02 | disposition home or self-care (01) ==
LOC: HO.HMGCLDS 06:01
PROVIDERS: PCP Internal Medicine; Visit Provider Internal Medicine
DX: Z00.01 Encounter for general adult medical examination with abnormal findings (principal); Z13.220 Encounter for screening for lipoid disorders; Z86.39 Personal history of other endocrine, nutritional and metabolic disease
CPT/HCPCS: 36415; 80061; 82306; 82607; 82746; 87522

== ENCOUNTER 2023-07-02 08:39 | Outpatient (REF) | payer MEDICARE, SELFPAY ==
[2023-07-02 08:52] LABS: MANUAL DIFF FLAG NO
[2023-07-02 08:54] LABS: Basophils Absolute Auto 0.1 X10*3/uL (0.0-0.2); Basophils Percent Auto 0.9 % (0-2); Eosinophils Absolute Auto 0.1 X10*3/uL (0.0-0.4); Eosinophils Percent Auto 1.2 % (0-4); Hematocrit 46.5 % (42.0-52.0); Hemoglobin 15.8 g/dl (14.0-18.0); Imm Gran Abs Auto 0.01 X10*3/uL (0.00-0.03); Imm Gran Pct Auto 0.2 % (0.0-0.4); Lymphocytes Absolute Auto 1.4 X10*3/uL (1.2-4.9); Lymphocytes Percent Auto 21.6 % (20-40); Mean Corpuscular Hemoglobin 32.4 pg (27.0-33.0); Mean Corpuscular Volume 95.3 fL (80.0-98.0); Mean Platelet Volume 9.1 fL (9.4-12.4); Monocytes Absolute Auto 0.5 X10*3/uL (0.1-1.2); Monocytes Percent Auto 7.9 % (2-11); Neutrophils Absolute Auto 4.4 x10*3/uL (2.0-8.3); Neutrophils Percent Auto 68.2 % (45-73); Platelet Count 271 X10*3/uL (160-400); Red Blood Count 4.88 X10*6/uL (4.60-5.80); Red Cell Distribution Width 12.2 % (11.0-16.0); White Blood Count 6.5 X10*3/uL (4.8-10.8)
[2023-07-02 09:53] LABS: Iron 83 mcg/dL (45-160); Percent Iron Saturation 34 % (15-50); Total Iron Binding Capacity 242 mcg/dL (228-428); Unsaturated Iron Binding 159 ug/dL
[2023-07-02 10:01] LABS: Ferritin 19 ng/mL (20-250)
== END 2023-07-02 08:40 | disposition home or self-care (01) ==
LOC: HO.BBR 08:39
PROVIDERS: PCP Internal Medicine; Visit Provider Internal Medicine Medical Oncology
DX: E83.110 Hereditary hemochromatosis (principal)
CPT/HCPCS: 36415; 82728; 83540; 85025

== ENCOUNTER 2023-07-05 06:38 | Outpatient (REF) | payer MEDICARE, SELFPAY ==
--- NOTE | ~2023-07-05 | CT_ITS ---
EXAMINATION: CT LUMBAR SPINE WITHOUT CONTRAST CLINICAL INFORMATION: Evaluate fusion hardware COMPARISON: MRI lumbar spine 09/06/2022 TECHNIQUE: A multidetector CT acquisition of the lumbar spine is obtained without contrast. This CT examination was performed using dose optimization techniques as appropriate, variously including the following: *Automated exposure control *Adjustment of mA and/or kV according to patient size (this includes techniques or standardized protocols for targeted exams where dose is matched to indication/reason for exam; i.e. extremities or head) *Use of iterative reconstruction technique DLP: 274 mGy-cm FINDINGS: There are new postsurgical changes following L3-L5 instrumented posterior interbody fusion utilizing paired vertical stabilization rods, transpedicular screws at the surgical levels and L3-L4 and L4-L5 interbody disc cages. A remote L4 laminectomy defect is redemonstrated. The bilateral L5 transpedicular screws approximate the medial cortices at the lateral recesses. There is mild lucency surrounding the base of the right greater than left L3 and L4 transpedicular screws.. Partial bridging interbody bone fusion mass at L4-L5 but not at L3-L4. There is likely partial bridging posterolateral bone fusion mass at L4-L5, however streak artifact from hardware limits assessment. Lumbar dextrocurvature, apex at L3-L4 and mild levocurvature at L2-L3. Slight left lateral listhesis at L2-L3 greater than L3-L4 and right lateral listhesis at L4-L5. Straightening of the normal lumbar lordosis. Slight retrolisthesis at L2-L3 and slight anterolisthesis at L3-L4 greater than L4-L5. Vertebral body heights are maintained. There is no suspicious osseous lesion. Redemonstrated severe right eccentric L2-L3 disc height loss and subjacent subchondral sclerosis/cystic change. Please not canal patency is not well assessed on this examination due to inherent limitations of CT without intrathecal contrast. Within these limitations, multilevel degenerative changes with level by level detail are as follows: L1-L2: Right eccentric annular disc bulge with osteophytic ridging and mild bilateral facet arthrosis. No spinal canal stenosis, noting redemonstrated right subarticular zone narrowing. No neural foraminal stenosis. L2-L3: Disc osteophyte complex with right lateral disc osteophyte and mild to moderate bilateral facet arthrosis. No overt spinal canal stenosis, noting right greater than left subarticular zone narrowing. Stable moderate right without left neural foraminal stenosis mass effect along the extraforaminal right L2 nerve root. L3-L4: Postsurgical changes as above. Anterolisthesis with annular disc bulge, osteophytic ridging, and facet arthrosis. Nondiagnostic assessment of the spinal canal and left neural foramen, however some degree of left neural foraminal stenosis with possible mass effect along the exiting left L3 nerve root is suspected. Stable mild right neural foraminal stenosis with contact along the exiting right L3 nerve root. L4-L5: Postsurgical changes as above with nondiagnostic assessment of the spinal canal. Osteophytic ridging and bilateral facet arthrosis. Asymmetric apparent effacement of the left neural foraminal fat along the course of the exiting left L4 nerve root, which appears asymmetrically enlarged relative to the right as seen on prior MRI for which a component of epidural fibrosis is not excluded and would be better evaluated on contrast-enhanced MRI. No significant right neural foraminal stenosis. L5-S1: Annular disc bulge and bilateral facet arthrosis. No spinal canal stenosis, noting an upon the traversing bilateral S1 nerve roots in the subarticular zones. Stable mild bilateral neural foraminal stenosis with contact along the exiting L5 nerve roots. Symmetric enlargement of the exiting and extraforaminal L5 nerve roots No significant abnormalities of the paraspinal musculature. Limited evaluation of the intra-abdominal structures without significant abnormalities. Mild calcific atherosclerotic disease. Exophytic bilateral renal cyst requiring further imaging follow-up. The abdominal aorta is of normal contour and caliber. Partially imaged emphysematous changes in the lungs. CT/CT lumbar spine wo IV con IMPRESSION: 1. Postsurgical changes following L3-L5 posterior lumbar interbody fusion with mild lucency surrounding the base of the right greater than left L3 and L4 transpedicular screws. The bilateral L5 transpedicular screws approximate the medial cortices of the lateral recesses. Partial bridging interbody bone fusion mass at L4-L5 but not at L3-L4. There is likely partial bridging posterolateral bone fusion mass at L4-L5, however streak artifact from hardware limits assessment. 2. At L4-L5, apparent asymmetric effacement of the left neural foraminal fat along the course of the exiting left L4 nerve root which appears asymmetrically enlarged relative to the right as seen on prior MRI for which a component of epidural fibrosis is not excluded and would be better evaluated on contrast-enhanced MRI. 3. At L3-L4, suspected some degree of left neural foraminal stenosis with possible mass effect along the exiting left L3 nerve root, noting streak artifact limits assessment. 4. At L2-L3, stable moderate right neural foraminal stenosis with mass effect along the extraforaminal right L2 nerve root. 5. Symmetric enlargement of the bilateral exiting/extraforaminal L5 nerve roots can be correlated clinically for the possibility of chronic inflammatory demyelinating polyneuropathy.
== END 2023-07-05 06:39 | disposition home or self-care (01) ==
LOC: HO.CT 06:38
PROVIDERS: PCP Internal Medicine; Visit Provider Physician Assistant
DX: Z98.1 Arthrodesis status (principal)
CPT/HCPCS: 72131

== ENCOUNTER 2023-07-17 09:16 | Outpatient (AMB) | payer MEDICARE, SELFPAY ==
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
[2023-07-17 09:25] VITALS: BP 98/74; PULSE 76; O2SAT 98; BMI 17.3
== END 2023-07-17 09:57 | disposition home or self-care (01) ==
PROVIDERS: Visit Provider Nurse Practitioner Family
DX: G62.9 Polyneuropathy, unspecified (principal); Z98.1 Arthrodesis status; R51.9 Headache, unspecified
CPT/HCPCS: 99214

== ENCOUNTER → 2023-07-17 09:16 | Outpatient (BNVA) | payer MEDICARE, SELFPAY | PROVIDERS: Visit Provider Nurse Practitioner Family | DX: M54.16 Radiculopathy, lumbar region (principal); G62.9 Polyneuropathy, unspecified; R51.9 Headache, unspecified; Z98.1 Arthrodesis status | CPT/HCPCS: 99212 ==

== ENCOUNTER 2023-07-17 14:34 | Outpatient (AMB) | payer MEDICARE, SELFPAY ==
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
== END 2023-07-17 15:43 | disposition home or self-care (01) ==
PROVIDERS: PCP Internal Medicine; Visit Provider Neurological Surgery
DX: M54.16 Radiculopathy, lumbar region (principal)
CPT/HCPCS: 99213

== ENCOUNTER 2023-08-12 08:54 | Outpatient (REF) | payer MEDICARE, SELFPAY | END 2023-08-12 08:55 | disposition home or self-care (01) | LOC: HO.BBR 08:54 | PROVIDERS: Visit Provider Internal Medicine Medical Oncology | DX: Z13.89 Encounter for screening for other disorder (principal) ==

== ENCOUNTER 2023-08-20 12:22 | Outpatient (AMB) | payer MEDICARE, SELFPAY ==
[2023-08-20 12:57] VITALS: BP 126/82; PULSE 75; O2SAT 96; BMI 17.6
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
== END 2023-08-20 13:47 | disposition home or self-care (01) ==
PROVIDERS: PCP Internal Medicine; Visit Provider Internal Medicine
DX: J44.89 Other specified chronic obstructive pulmonary disease (principal)
CPT/HCPCS: 99214

== ENCOUNTER 2023-10-01 09:45 | Outpatient (AMB) | payer MEDICARE, SELFPAY ==
[2023-10-01 10:14] VITALS: BP 110/80; PULSE 71; O2SAT 98; BMI 17.3
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
== END 2023-10-01 10:44 | disposition home or self-care (01) ==
PROVIDERS: PCP Internal Medicine; Visit Provider Internal Medicine
DX: J44.89 Other specified chronic obstructive pulmonary disease (principal); F17.210 Nicotine dependence, cigarettes, uncomplicated
CPT/HCPCS: 99214

== ENCOUNTER 2023-10-01 09:45 | Outpatient (REF) | payer MEDICARE, SELFPAY ==
--- NOTE | ~2023-10-01 | XR_ITS ---
EXAMINATION: XR CHEST CLINICAL INFORMATION: Chronic obstructive pulmonary disease. COMPARISON: None available. TECHNIQUE: 2 views of the chest were obtained. FINDINGS: Asymmetric right upper lobe streaky opacities with cystic lucencies, volume loss, and apical pleural thickening of indeterminate age and etiology. Direct correlation with prior images is recommended and if prior images are provided, an addendum will be dictated. In the absence of prior images, CT scan or MRI should be considered for further evaluation. No gross pleural effusion. Degenerative changes in the thoracic spine. XR/XR chest 2V IMPRESSION: Asymmetric right upper lobe streaky opacities with cystic lucencies, volume loss, and apical pleural thickening of indeterminate age and etiology. Direct correlation with prior images is recommended and if prior images are provided, an addendum will be dictated. In the absence of prior images, CT scan without intravenous contrast recommended for further evaluation.
== END 2023-10-01 09:46 | disposition home or self-care (01) ==
LOC: HO.XRAY 09:45
PROVIDERS: PCP Internal Medicine; Visit Provider Internal Medicine
DX: J44.89 Other specified chronic obstructive pulmonary disease (principal); F17.210 Nicotine dependence, cigarettes, uncomplicated; Z79.899 Other long term (current) drug therapy
CPT/HCPCS: 71046; 99212

== ENCOUNTER 2023-10-14 09:44 | Outpatient (REF) | payer MEDICARE, SELFPAY ==
[2023-10-14 10:05] LABS: MANUAL DIFF FLAG NO
[2023-10-14 10:07] LABS: Basophils Absolute Auto 0.1 X10*3/uL (0.0-0.2); Basophils Percent Auto 0.9 % (0-2); Eosinophils Absolute Auto 0.1 X10*3/uL (0.0-0.4); Eosinophils Percent Auto 0.9 % (0-4); Hematocrit 43.4 % (42.0-52.0); Hemoglobin 14.5 g/dl (14.0-18.0); Imm Gran Abs Auto 0.02 X10*3/uL (0.00-0.03); Imm Gran Pct Auto 0.3 % (0.0-0.4); Lymphocytes Percent Auto 15.4 % (20-40); Mean Corpuscular HGB Conc 33.4 g/dl (31.0-36.0); Mean Corpuscular Hemoglobin 31.5 pg (27.0-33.0); Mean Corpuscular Volume 94.1 fL (80.0-98.0); Monocytes Absolute Auto 0.6 X10*3/uL (0.1-1.2); Monocytes Percent Auto 9.5 % (2-11); Neutrophils Absolute Auto 4.9 x10*3/uL (2.0-8.3); Platelet Count 247 X10*3/uL (160-400); Red Blood Count 4.61 X10*6/uL (4.60-5.80); Red Cell Distribution Width 13.1 % (11.0-16.0); White Blood Count 6.6 X10*3/uL (4.8-10.8)
[2023-10-14 10:54] LABS: Alanine Aminotransferase 16 U/L (0-40); Albumin Level 4.3 g/dL (3.5-5.0); Alkaline Phosphatase 121 U/L (39-117); Anion Gap 11 (12-20); Aspartate Amino Transferase 18 U/L (5-37); Bilirubin Total 0.4 mg/dL (0.0-1.0); Blood Urea Nitrogen 11 mg/dL (9-16); Calcium 9.4 mg/dL (8.4-10.2); Carbon Dioxide 29 mmol/L (22-29); Chloride 106 mmol/L (96-108); Estimated Glomerular Filt Rate > 60; Glucose Random 75 mg/dL (60-115); Iron 74 mcg/dL (45-160); Percent Iron Saturation 29 % (15-50); Potassium 4.1 mmol/L (3.3-5.1); Sodium 142 mmol/L (135-145); Total Iron Binding Capacity 255 mcg/dL (228-428); Total Protein 7.1 g/dL (6.5-8.0); Unsaturated Iron Binding 181 ug/dL
[2023-10-14 11:12] LABS: Ferritin 13 ng/mL (20-250)
== END 2023-10-14 09:45 | disposition home or self-care (01) ==
LOC: HO.BBR 09:44
PROVIDERS: PCP Internal Medicine; Visit Provider Internal Medicine Medical Oncology
DX: E83.110 Hereditary hemochromatosis (principal)
CPT/HCPCS: 36415; 80053; 82728; 83540; 85025

== ENCOUNTER 2023-10-16 11:20 | Outpatient (AMB) | payer MEDICARE, SELFPAY ==
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
== END 2023-10-16 12:21 | disposition home or self-care (01) ==
PROVIDERS: PCP Internal Medicine; Visit Provider Neurological Surgery
DX: Z98.1 Arthrodesis status (principal)
CPT/HCPCS: 99212

== ENCOUNTER → 2023-10-16 11:20 | Outpatient (BNVA) | payer MEDICARE, SELFPAY | PROVIDERS: PCP Internal Medicine; Visit Provider Neurological Surgery | DX: Z98.1 Arthrodesis status (principal) | CPT/HCPCS: 99212 ==

== ENCOUNTER 2023-11-22 09:31 | Outpatient (AMB) | payer MEDICARE, SELFPAY ==
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
== END 2023-11-22 09:47 | disposition home or self-care (01) ==
PROVIDERS: PCP Internal Medicine; Visit Provider Nurse Practitioner Family
DX: F17.210 Nicotine dependence, cigarettes, uncomplicated (principal)
CPT/HCPCS: G0296

== ENCOUNTER 2023-11-22 09:46 | Outpatient (REF) | payer MEDICARE, SELFPAY ==
--- NOTE | ~2023-11-22 | CT_ITS ---
EXAMINATION: CT CHEST SCREENING CLINICAL INFORMATION: Nicotine dependence. Current smoker one pack per day x 40 years. COMPARISON: None available. TECHNIQUE: Multidetector volumetric CT imaging of the chest is performed without contrast using low dose technique. Additional 2D coronal and sagittal reformatted images and axial 3D maximum intensity projection (MIP) images are generated on the CT workstation. This CT examination was performed using dose optimization techniques as appropriate, variously including the following: *Automated exposure control *Adjustment of mA and/or kV according to patient size (this includes techniques or standardized protocols for targeted exams where dose is matched to indication/reason for exam; i.e. extremities or head) *Use of iterative reconstruction technique DLP: 42 mGy-cm. FINDINGS: LUNGS: Marked emphysematous changes are present. Scarring and traction bronchiectasis present in the right upper lobe. Scattered pulmonary nodules are seen includin x 2 x 2 mm oval nodular density right lower lobe (5:282 and 8:96). 3 mm right upper lobe nodule (5:316). 2 mm right lower lobe nodule (5:405). MEDIASTINUM: The mediastinum is normal. CORONARY ARTERY CALCIFICATION: Marked. PLEURA: There is no pleural effusion. No pleural mass or thickening. AXILLA: No lymphadenopathy. UPPER ABDOMEN: Multiple benign Bosniak class I renal cysts are noted which require no additional imaging or follow-up. No solid renal masses are seen. OSSEOUS STRUCTURES: Degenerative changes are present in the spine. Partial visualization of lumbar fixation hardware. CT/CT lung screening IMPRESSION: Severe COPD with right upper lobe bronchiectasis. Three nodular densities are seen, the largest measuring 7 x 2 x 2 mm. ASSESSMENT: Lung-RADS category 3: Probably Benign. RECOMMENDATION: Short interval 6 month follow up low dose CT chest.
== END 2023-11-22 09:47 | disposition home or self-care (01) ==
LOC: HO.CT 09:46
PROVIDERS: PCP Internal Medicine; Visit Provider Nurse Practitioner Family
DX: Z12.2 Encounter for screening for malignant neoplasm of respiratory organs (principal); F17.210 Nicotine dependence, cigarettes, uncomplicated
CPT/HCPCS: 71271; G0296

== ENCOUNTER 2023-11-26 09:25 | Outpatient (AMB) | payer MEDICARE, SELFPAY ==
[2023-11-26 09:28] VITALS: BP 102/64; PULSE 74; O2SAT 97; BMI 17.3
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
== END 2023-11-26 09:50 | disposition home or self-care (01) ==
PROVIDERS: PCP Internal Medicine; Visit Provider Internal Medicine
DX: J44.89 Other specified chronic obstructive pulmonary disease (principal); F17.210 Nicotine dependence, cigarettes, uncomplicated; R91.1 Solitary pulmonary nodule
CPT/HCPCS: 99213

== ENCOUNTER → 2023-11-26 09:25 | Outpatient (BNVA) | payer MEDICARE, SELFPAY | PROVIDERS: PCP Internal Medicine; Visit Provider Internal Medicine | DX: J44.89 Other specified chronic obstructive pulmonary disease (principal); R91.1 Solitary pulmonary nodule; F17.210 Nicotine dependence, cigarettes, uncomplicated; Z71.6 Tobacco abuse counseling | CPT/HCPCS: 99212 ==

== ENCOUNTER 2023-12-16 08:05 | Outpatient (REF) | payer MEDICARE, MEDICAID, SELFPAY ==
[2023-12-16 08:21] LABS: MANUAL DIFF FLAG NO
[2023-12-16 08:23] LABS: Basophils Absolute Auto 0.1 X10*3/uL (0.0-0.2); Basophils Percent Auto 1.2 % (0-2); Eosinophils Absolute Auto 0.1 X10*3/uL (0.0-0.4); Eosinophils Percent Auto 1.5 % (0-4); Hematocrit 44.2 % (42.0-52.0); Hemoglobin 14.5 g/dl (14.0-18.0); Imm Gran Abs Auto 0.02 X10*3/uL (0.00-0.03); Imm Gran Pct Auto 0.3 % (0.0-0.4); Lymphocytes Absolute Auto 1.5 X10*3/uL (1.2-4.9); Mean Corpuscular HGB Conc 32.8 g/dl (31.0-36.0); Mean Corpuscular Hemoglobin 30.6 pg (27.0-33.0); Mean Corpuscular Volume 93.2 fL (80.0-98.0); Mean Platelet Volume 9.2 fL (9.4-12.4); Monocytes Absolute Auto 0.6 X10*3/uL (0.1-1.2); Monocytes Percent Auto 9.4 % (2-11); Neutrophils Absolute Auto 3.9 x10*3/uL (2.0-8.3); Neutrophils Percent Auto 63.6 % (45-73); Platelet Count 241 X10*3/uL (160-400); Red Blood Count 4.74 X10*6/uL (4.60-5.80); Red Cell Distribution Width 13.9 % (11.0-16.0); White Blood Count 6.1 X10*3/uL (4.8-10.8)
[2023-12-16 09:23] LABS: Alanine Aminotransferase 17 U/L (0-40); Albumin Level 4.4 g/dL (3.5-5.0); Alkaline Phosphatase 104 U/L (39-117); Anion Gap 11 (12-20); Aspartate Amino Transferase 23 U/L (5-37); Bilirubin Total 0.6 mg/dL (0.0-1.0); Blood Urea Nitrogen 14 mg/dL (9-16); Calcium 9.6 mg/dL (8.4-10.2); Carbon Dioxide 29 mmol/L (22-29); Chloride 107 mmol/L (96-108); Estimated Glomerular Filt Rate > 60; Glucose Random 97 mg/dL (60-115); Iron 76 mcg/dL (45-160); Percent Iron Saturation 29 % (15-50); Potassium 4.2 mmol/L (3.3-5.1); Sodium 143 mmol/L (135-145); Total Iron Binding Capacity 265 mcg/dL (228-428); Total Protein 7.2 g/dL (6.5-8.0); Unsaturated Iron Binding 189 ug/dL
[2023-12-16 09:45] LABS: Ferritin 16 ng/mL (20-250)
== END 2023-12-16 08:06 | disposition home or self-care (01) ==
LOC: HO.BBR 08:05
PROVIDERS: PCP Internal Medicine; Visit Provider Internal Medicine Medical Oncology
DX: E83.110 Hereditary hemochromatosis (principal)
CPT/HCPCS: 36415; 80053; 82728; 83540; 85025

== ENCOUNTER 2024-01-15 14:09 | Outpatient (AMB) | payer MEDICARE, SELFPAY ==
--- NOTE | 2024-01-15 14:12 | A.SPINEOV_ITS ---
Intake Visit Reasons: 3 months f/up Intake Note: Mr. Albright is here today for 3 month f/u. 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 He underwent a minimally invasive lumbar fusion. He states that his back feels terrific. He still has an intermittent discomfort in his left leg. I think in the end, he recovered well from surgery. I discharged him from further follow-up. Thank you for letting me take care of your patient. Ti Martin MD, PhD Spine Fellowship Trained Neurosurgeon Director, [facility] [place] [facility] Coding Level of Care Code Est Pt Level 2 (60957) Diagnoses Status post lumbar and lumbosacral fusion by anterior technique Z98.1
== END 2024-01-15 14:21 | disposition home or self-care (01) ==
PROVIDERS: PCP Internal Medicine; Visit Provider Neurological Surgery
DX: Z98.1 Arthrodesis status (principal)
CPT/HCPCS: 99212

== ENCOUNTER → 2024-01-15 14:09 | Outpatient (BNVA) | payer MEDICARE, SELFPAY | PROVIDERS: PCP Internal Medicine; Visit Provider Neurological Surgery | DX: Z98.1 Arthrodesis status (principal) | CPT/HCPCS: 99212 ==

== ENCOUNTER 2024-01-20 09:35 | Outpatient (AMB) | payer MEDICARE, SELFPAY ==
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
[2024-01-20 09:40] VITALS: BP 98/84; BMI 16.7
== END 2024-01-20 10:12 | disposition home or self-care (01) ==
PROVIDERS: PCP Internal Medicine; Visit Provider Nurse Practitioner Family
DX: M47.816 Spondylosis without myelopathy or radiculopathy, lumbar region (principal); G62.9 Polyneuropathy, unspecified; R25.1 Tremor, unspecified; M79.641 Pain in right hand
CPT/HCPCS: 99214

== ENCOUNTER → 2024-01-20 09:35 | Outpatient (BNVA) | payer MEDICARE, SELFPAY | PROVIDERS: PCP Internal Medicine; Visit Provider Nurse Practitioner Family | DX: R25.1 Tremor, unspecified (principal); M47.816 Spondylosis without myelopathy or radiculopathy, lumbar region; M79.641 Pain in right hand; G62.9 Polyneuropathy, unspecified | CPT/HCPCS: 99212 ==

== ENCOUNTER 2024-02-17 08:03 | Outpatient (REF) | payer MEDICARE, SELFPAY ==
[2024-02-17 08:20] LABS: MANUAL DIFF FLAG NO
[2024-02-17 08:22] LABS: Basophils Absolute Auto 0.1 X10*3/uL (0.0-0.2); Basophils Percent Auto 1.4 % (0-2); Eosinophils Absolute Auto 0.2 X10*3/uL (0.0-0.4); Eosinophils Percent Auto 3.6 % (0-4); Hematocrit 43.4 % (42.0-52.0); Hemoglobin 14.5 g/dl (14.0-18.0); Imm Gran Abs Auto 0.02 X10*3/uL (0.00-0.03); Imm Gran Pct Auto 0.3 % (0.0-0.4); Lymphocytes Absolute Auto 1.2 X10*3/uL (1.2-4.9); Lymphocytes Percent Auto 19.2 % (20-40); Mean Corpuscular HGB Conc 33.4 g/dl (31.0-36.0); Mean Corpuscular Hemoglobin 31.8 pg (27.0-33.0); Mean Corpuscular Volume 95.2 fL (80.0-98.0); Mean Platelet Volume 9.1 fL (9.4-12.4); Monocytes Absolute Auto 0.6 X10*3/uL (0.1-1.2); Monocytes Percent Auto 8.9 % (2-11); Neutrophils Absolute Auto 4.2 x10*3/uL (2.0-8.3); Neutrophils Percent Auto 66.6 % (45-73); Platelet Count 258 X10*3/uL (160-400); Red Blood Count 4.56 X10*6/uL (4.60-5.80); Red Cell Distribution Width 13.9 % (11.0-16.0); White Blood Count 6.3 X10*3/uL (4.8-10.8)
[2024-02-17 09:25] LABS: Alanine Aminotransferase 16 U/L (0-40); Albumin Level 4.4 g/dL (3.5-5.0); Alkaline Phosphatase 110 U/L (39-117); Anion Gap 17 (12-20); Aspartate Amino Transferase 21 U/L (5-37); Bilirubin Total 0.5 mg/dL (0.0-1.0); Blood Urea Nitrogen 15 mg/dL (9-16); Calcium 10.1 mg/dL (8.4-10.2); Carbon Dioxide 27 mmol/L (22-29); Chloride 106 mmol/L (96-108); Estimated Glomerular Filt Rate > 60; Glucose Random 79 mg/dL (60-115); Iron 116 mcg/dL (45-160); Percent Iron Saturation 40 % (15-50); Potassium 4.7 mmol/L (3.3-5.1); Sodium 145 mmol/L (135-145); Total Iron Binding Capacity 287 mcg/dL (228-428); Total Protein 7.2 g/dL (6.5-8.0); Unsaturated Iron Binding 171 ug/dL
[2024-02-17 09:42] LABS: Ferritin 17 ng/mL (20-250)
== END 2024-02-17 08:04 | disposition home or self-care (01) ==
LOC: HO.BBR 08:03
PROVIDERS: PCP Internal Medicine; Visit Provider Internal Medicine Medical Oncology
DX: E83.110 Hereditary hemochromatosis (principal)
CPT/HCPCS: 36415; 80053; 82728; 83540; 85025

== ENCOUNTER 2024-02-26 09:18 | Outpatient (AMB) | payer MEDICARE, SELFPAY ==
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
== END 2024-02-26 11:39 | disposition home or self-care (01) ==
PROVIDERS: PCP Internal Medicine; Visit Provider Physical Medicine & Rehabilitation
DX: M79.641 Pain in right hand (principal); M79.642 Pain in left hand
CPT/HCPCS: 99203

== ENCOUNTER 2024-02-26 09:18 | Outpatient (REF) | payer MEDICARE, SELFPAY ==
--- NOTE | ~2024-02-26 | XR_ITS ---
EXAMINATION: XR HANDS/WRISTS, BILATERAL CLINICAL INFORMATION: Pain, evaluate for DJD. COMPARISON: None available. TECHNIQUE: 3 views of each hand/wrist. FINDINGS: RIGHT HAND/WRIST: The bones are diffusely demineralized. Ulnar-minus variance. Severe degenerative changes in the radiocarpal joint with narrowing of the joint space with periarticular remodeling. Amorphous calcifications distal to the ulna. Moderate degenerative changes in the first carpometacarpal joint with joint space narrowing and hypertrophic change. Advanced degenerative changes with joint space narrowing and hypertrophic change involving all 5 metacarpophalangeal joints as well as the IP joint of the thumb. [id number] degenerative changes in the PIP and DIP joints of the second digit. LEFT HAND: The bones are diffusely demineralized. Ulnar-minus variance. Severe degenerative changes in the radiocarpal joint with narrowing of the joint space with periarticular remodeling. Large periarticular cystic changes most dominant in the radial styloid. Amorphous calcifications distal to the ulna. Moderate degenerative changes in the first carpometacarpal joint with joint space narrowing and hypertrophic change. Advanced degenerative changes with joint space narrowing and hypertrophic change involving all 5 metacarpophalangeal joints as well as the IP joint of the thumb. Moderate degenerative changes in the PIP and DIP joints of the second digit. XR/XR hand wrist LT IMPRESSION: Advanced degenerative changes in the bilateral hands as detailed above.
--- NOTE | ~2024-02-26 | XR_ITS ---
EXAMINATION: XR HANDS/WRISTS, BILATERAL CLINICAL INFORMATION: Pain, evaluate for DJD. COMPARISON: None available. TECHNIQUE: 3 views of each hand/wrist. FINDINGS: RIGHT HAND/WRIST: The bones are diffusely demineralized. Ulnar-minus variance. Severe degenerative changes in the radiocarpal joint with narrowing of the joint space with periarticular remodeling. Amorphous calcifications distal to the ulna. Moderate degenerative changes in the first carpometacarpal joint with joint space narrowing and hypertrophic change. Advanced degenerative changes with joint space narrowing and hypertrophic change involving all 5 metacarpophalangeal joints as well as the IP joint of the thumb. Clgyyebi-hb-azxzeh degenerative changes in the PIP and DIP joints of the second digit. LEFT HAND: The bones are diffusely demineralized. Ulnar-minus variance. Severe degenerative changes in the radiocarpal joint with narrowing of the joint space with periarticular remodeling. Large periarticular cystic changes most dominant in the radial styloid. Amorphous calcifications distal to the ulna. Moderate degenerative changes in the first carpometacarpal joint with joint space narrowing and hypertrophic change. Advanced degenerative changes with joint space narrowing and hypertrophic change involving all 5 metacarpophalangeal joints as well as the IP joint of the thumb. Moderate degenerative changes in the PIP and DIP joints of the second digit. XR/XR hand wrist RT IMPRESSION: Advanced degenerative changes in the bilateral hands as detailed above.
== END 2024-02-26 09:19 | disposition home or self-care (01) ==
LOC: HO.HOSX 09:18
PROVIDERS: PCP Internal Medicine; Visit Provider Physical Medicine & Rehabilitation
DX: M79.641 Pain in right hand (principal); M79.642 Pain in left hand
CPT/HCPCS: 73110; 73130; 99202

== ENCOUNTER 2024-03-31 09:29 | Outpatient (AMB) | payer MEDICARE, SELFPAY ==
[2024-03-31 09:46] VITALS: BP 102/64; PULSE 70; O2SAT 98; BMI 16.6
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
== END 2024-03-31 10:10 | disposition home or self-care (01) ==
PROVIDERS: PCP Internal Medicine; Visit Provider Internal Medicine
DX: J44.89 Other specified chronic obstructive pulmonary disease (principal); R91.1 Solitary pulmonary nodule; F17.210 Nicotine dependence, cigarettes, uncomplicated
CPT/HCPCS: 99213

== ENCOUNTER → 2024-03-31 09:29 | Outpatient (BNVA) | payer MEDICARE, SELFPAY | PROVIDERS: PCP Internal Medicine; Visit Provider Internal Medicine | DX: J44.89 Other specified chronic obstructive pulmonary disease (principal); R91.1 Solitary pulmonary nodule; F17.210 Nicotine dependence, cigarettes, uncomplicated | CPT/HCPCS: 99212 ==

== ENCOUNTER 2024-04-10 08:00 | Outpatient (RCR) | payer MEDICARE, OTHER, SELFPAY ==
--- NOTE | 2024-03-25 09:29 | MHC.OT.EP ---
[address] [phone] Occupational Therapy Plan of Care Patient Name: Tor Albright Date of Evaluation: 03/25/24 Diagnosis: B/L Hand Pain Pain Location: Left thumb trigger > right thumb Pain, tenderness in B/L CMCs General tenderness in IPs over nodules Pain Score: 5 Pain Scale Used: Numeric (0 - 10) Aggravating Factors: Thumb triggering, heavy use Alleviating Factors: Paraffin wax (but only in the moment), Tramadol, Voltaren occasionally, massage Assessment: Tor is a 68 year old right hand dominant male who presents with B/L hand pain, right worse than left, persistant over the past five years. He reports occasionally locking, mostly in his right thumb, and he had been receiving [facility] but states he maxed those out. He is now referred to OT for conservative management of B/L hand pain due to OA and trigger digits. On assessment today, he has moderate pain in both hands, right worse than left and specifically in thumb CMC, as well as tenderness over IPs with palpation and movement. 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 I anticipate he will benefit from brief course of OT to discuss further options for adaptive equipment, splinting options, joint protection and functional range and strengthening program. Frequency and Duration: The patient will be seen 1x/wk for 3 weeks Short Term Goals: Ind w/ joint protection techniques to minimize triggering and malpositioning of thumbs Good follow through w/ hand AROM and isometric strengthening program Pt to report at least three pain management techniques to implement PRN Mcfp Goals: same as above Treatment Plan: Therapeutic Exercise Therapeutic Activity Home Exercise Program Splinting Patient Education ADL Training Paraffin Fluidotherapy MHP Cold Packs Joint Mobilization Soft Tissue Mobilization Kinesiotaping Electronically Signed By: Isabelle Tsang, OTR/L CHT Please Sign and return to therapist. Thank you once again for your referral.
--- NOTE | 2024-05-13 11:52 | MHC.OT.DC ---
[address] [phone] F: [phone] Occupational Therapy Discharge Note Patient Name: Tor Albright Provider: Dr Tarsha Nassar Diagnosis: B/L Hand Pain Date of Evaluation: 03/25/24 Date of Discharge: 05/13/24 Treatments to Date: 2 Discharge Status: Discharge Summary: Tor was seen in OT for B/L hand pain and had one follow up with reported less pain and good follow through w/ HEP and recommendations. He has since had medical emergency and was unable to attend further therapy services. We will discharge at this time and patient is welcome to call with new order to reevaluate and continue therapy services when medically clear. Electronically Signed By: Isabelle Tsang OTR/L CHT Reviewed/agree with student documentation: Therapist: Please Sign and return to therapist, thank you for your referral.
== END 2024-05-13 11:52 | disposition home or self-care (01) ==
LOC: HO.OT 08:00
PROVIDERS: PCP Internal Medicine; Visit Provider Physical Medicine & Rehabilitation
DX: M19.041 Primary osteoarthritis, right hand (principal); M19.042 Primary osteoarthritis, left hand
CPT/HCPCS: 29130; 97110; 97166; 97535; 97760

== ENCOUNTER 2024-04-14 21:41 | Inpatient (IN) | payer MEDICARE, SELFPAY ==
--- NOTE | ~2024-04-14 | CT_ITS ---
EXAMINATION: CT ABDOMEN AND PELVIS WITH CONTRAST CLINICAL INFORMATION: Left inguinal incarcerated hernia COMPARISON: CT lung screening 11/22/[address] lumbar spine 07/05/2023 TECHNIQUE: Multidetector volumetric images were obtained from the superior aspect of the liver through the pubic symphysis following administration 100 mL of Omnipaque 350 intravenous contrast. Sagittal and coronal reformatted images were obtained on the technologist's workstation. Oral contrast: No This CT examination was performed using dose optimization techniques as appropriate, variously including the following: *Automated exposure control *Adjustment of mA and/or kV according to patient size (this includes techniques or standardized protocols for targeted exams where dose is matched to indication/reason for exam; i.e. extremities or head) *Use of iterative reconstruction technique DLP: 288 mGy-cm FINDINGS: LUNG BASES: Severe emphysematous changes are present at the lung bases. LIVER, GALLBLADDER, AND BILIARY TREE: The liver is normal in size and shape. Periportal edema is present some minimal prominence of Central bile ducts is seen. There is a large mass present in the right lobe of the liver just beneath the diaphragm measuring 5.9 x 5.6 x 5.1 cm (3:14 and 7:42). The gallbladder is contracted but otherwise unremarkable with no evidence of radiopaque gallstones, gallbladder wall thickening, or obvious pericholecystic inflammatory changes. PANCREAS: No pancreatic mass or ductal dilatation. Some mild punctate calcium present throughout the pancreas. SPLEEN: Unremarkable ADRENAL GLANDS: There is a right adrenal mass present measuring 1.3 x 1.1 x 1.5 cm which is quite heterogeneous (3:12 and 7:44). There is a smaller left adrenal mass/thickening present measuring about 1.7 x 0.8 x 1.7 cm (3:16 and 7:43). KIDNEYS AND URETERS: The kidneys are normal in size, shape, and attenuation. No hydronephrosis, hydroureter, or calculi seen. A benign 6.9 cm left upper pole Bosniak class I renal cyst is noted along with a 3.3 cm right upper pole cyst. These require no additional imaging or follow up. No solid renal masses are seen. No perinephric stranding. BLADDER: Unremarkable. GASTROINTESTINAL TRACT: Patient appears to be status post a right hemicolectomy. Surgical clips seen in the left abdomen with a suture line around the descending colon. Please correlate with surgical history. Large amount of stool is present in residual colon. ABDOMINAL WALL: There is a small right inguinal hernia containing a tiny loop of small bowel. On the left, there is a larger loop of small bowel in an inguinal hernia with mild obstruction and possible incarceration. LYMPH NODES: No retroperitoneal lymphadenopathy. VASCULAR: Calcific atherosclerotic changes are present in the aorta and iliofemoral vessels. There is no evidence of an abdominal aortic aneurysm. PELVIC VISCERA: Unremarkable. OSSEOUS STRUCTURES: Degenerative changes are present spine L2-L5 with pedicular screws and fixation from L3 through L5 with interbody devices at the [address]/CT abdomen pelvis w IV con IMPRESSION: 1. Bilateral inguinal hernias, left greater than right. The left inguinal hernia contains a loop of small bowel with mild obstruction and possible incarceration. 2. Large right lobe liver mass with bilateral adrenal masses. Findings are worrisome for metastatic disease. MRI is recommended for further evaluation. 3. Other incidental findings as described above. Fleischner guidelines were followed.
[2024-04-14 22:00] VITALS: BP 112/78; PULSE 56; O2SAT 96
[2024-04-14 22:05] VITALS: BP 166/103; PULSE 53; RESP 18; TEMP 37.2; O2SAT 98; BMI 16.1
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
[2024-04-14 22:29] LABS: MANUAL DIFF FLAG NO
[2024-04-14 22:30] LABS: Basophils Absolute Auto 0.1 X10*3/uL (0.0-0.2); Eosinophils Absolute Auto 0.1 X10*3/uL (0.0-0.4); Eosinophils Percent Auto 1.6 % (0-4); Hematocrit 43.6 % (42.0-52.0); Hemoglobin 14.5 g/dl (14.0-18.0); Imm Gran Abs Auto 0.02 X10*3/uL (0.00-0.03); Imm Gran Pct Auto 0.3 % (0.0-0.4); Lymphocytes Absolute Auto 2.2 X10*3/uL (1.2-4.9); Lymphocytes Percent Auto 27.3 % (20-40); Mean Corpuscular HGB Conc 33.3 g/dl (31.0-36.0); Mean Corpuscular Hemoglobin 31.9 pg (27.0-33.0); Mean Platelet Volume 9.2 fL (9.4-12.4); Monocytes Absolute Auto 0.8 X10*3/uL (0.1-1.2); Monocytes Percent Auto 10.6 % (2-11); Neutrophils Absolute Auto 4.7 x10*3/uL (2.0-8.3); Neutrophils Percent Auto 59.2 % (45-73); Platelet Count 249 X10*3/uL (160-400); Red Blood Count 4.54 X10*6/uL (4.60-5.80); Red Cell Distribution Width 13.7 % (11.0-16.0); White Blood Count 7.9 X10*3/uL (4.8-10.8)
[2024-04-14 22:44] LABS: Alanine Aminotransferase 16 U/L (0-40); Albumin Level 4.3 g/dL (3.5-5.0); Alkaline Phosphatase 112 U/L (39-117); Anion Gap 15 (12-20); Aspartate Amino Transferase 23 U/L (5-37); Bilirubin Direct 0.1 mg/dL (0.0-0.5); Bilirubin Total 0.3 mg/dL (0.0-1.0); Blood Urea Nitrogen 21 mg/dL (9-16); Calcium 9.6 mg/dL (8.4-10.2); Carbon Dioxide 29 mmol/L (22-29); Chloride 105 mmol/L (96-108); Creatinine Clr Calc Pharmacy 53.2; Estimated Glomerular Filt Rate > 60; Glucose Random 101 mg/dL (60-115); Lipase 19 U/L (8-78); Potassium 4.3 mmol/L (3.3-5.1); Sodium 145 mmol/L (135-145); Total Protein 7.1 g/dL (6.5-8.0)
[2024-04-14] MEDS: iohexoL 350 MG/ML 100 ML INFUS..BTL 85 ML IV (23:06)
[2024-04-14] MEDS: Morphine Sulfate 4 MG/ML CARTRIDGE IVPUSH (23:08)
[2024-04-14] MEDS: ondansetron HCL 4 MG/2 ML VIAL IVPUSH (23:08)
[2024-04-14 23:27] VITALS: PULSE 59; RESP 17; O2SAT 96
[2024-04-14 23:31] LABS: Lactic Acid 1.1 mmol/L (0.5-2.0)
[2024-04-15] VITALS (10 sets, daily range): BP systolic 101–152; BP diastolic 66–96; PULSE 56–78; RESP 14–18; TEMP 36.2–37.1; O2SAT 96–100; BMI 16.1
[2024-04-15 00:36] LABS: Appearance Urine Clear; Color Urine Yellow; Glucose Urine UA Negative (Negative); Leukocyte Esterase Urine Negative (Negative); Nitrite Urine Negative (Negative); PH 6.5 (5.0-9.0); Specific Gravity - Urine >= 1.030 (1.005-1.025); Urine Blood Negative (Negative); Urine Ketones Negative (Negative); Urine Protein Negative (Neg-Trace)
--- NOTE | 2024-04-15 01:35 | ECG_ITS ---
Test Reason : PREOP Blood Pressure : / mmHG Vent. Rate : 061 BPM Atrial Rate : 061 BPM P-R Int : 158 ms QRS Dur : 090 ms QT Int : 416 ms P-R-T Axes : 082 087 072 degrees QTc Int : 418 ms Normal sinus rhythm with sinus arrhythmia Normal ECG When compared with ECG of 11-MAR-2023 13:54, No significant change was found Referred By: Joey Garcia Electronically Signed By:KALI CARRANZA MD
[2024-04-15] MEDS: 0.9 % Sodium Chloride 1,000 ML 999 ML IV (01:41)
[2024-04-15] MEDS: Piperacillin Sodium/Tazobactam 3.375 GM in 0.9 % Sodium Chloride 50 ML IV (01:42)
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
--- NOTE | 2024-04-15 05:00 | MHC.EDTECH ---
Pt transported to OR
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
--- NOTE | 2024-04-15 05:07 | PC.NURSE ---
pt to OR
--- NOTE | 2024-04-15 05:08 | PC.NURSE ---
report given to OR nurse via telephone.
[2024-04-15] MEDS: Ketorolac Tromethamine 15 MG/ML VIAL IVPUSH ×3 (08:13→19:09)
[2024-04-15] MEDS: oxyCODONE HCl Immed Release 5 MG TABLET 10 MG PO ×2 (08:14→23:42)
--- NOTE | 2024-04-15 08:39 | PHA.MEDREC ---
Addendum entered by Fam Hanson RPh 04/15/24 08:47: Med rec checked by [facility] Original Note: Pharmacy Consult ? Medication Reconciliation Pharmacy has completed the medication reconciliation. Confirmed medications with patient.
--- NOTE | 2024-04-15 08:58 | PM.EVENT ---
Event Note Date of Service: 04/15/24 Event Note: Postoperative Check: Patient reports feeling much improved with decreased abdominal pain. He is drinking liquids without nausea or vomiting. BP and pulse rate are stable. Wounds are clean and intact. We will continue to monitor. Time Spent With Patient Time: Total time managing care of this patient today ____ minutes.
[2024-04-15] MEDS: Enoxaparin Sodium 40 MG/0.4 ML SYRINGE SUBCUT (10:22)
[2024-04-15] MEDS: oxyCODONE HCl Immed Release 5 MG TABLET PO (13:28)
[2024-04-15] MEDS: Acetaminophen 325 MG TABLET 650 MG PO (13:28)
--- NOTE | 2024-04-15 14:02 | MHC.CM.PN ---
PT LIVES WITH THEY ARE INDEPENDENT WILL NOT NEED SERVIES WHEN DCD
--- NOTE | 2024-04-15 14:24 | W.PM.OPN ---
Operative Note Operative Note Date of Service: 04/15/24 Narrative: PREOP DIAGNOSIS- incarcerated left femoral hernia Postop diagnosis-- strangulated left femoral hernia Procedure done--reduction and repair of strangulated left femoral hernia Surgeon- Joo Anesthesia- general Patient is a 68-year-old male who has had about 8 hour history of increasing pain in the left groin area and the mask present. This was not reducible to him and he came to the emergency room and they were not able to reduce it here. CT scan shows small bowel loop coming into an inguinal hernia with bowel obstruction a progressing and compromise of the intestine. Plan is to carry out emergent left groin exploration with repair of most likely femoral hernia -Procedure-patient was brought to the operative room under Anesthesia guidance was intubated. He had compression stockings placed before induction received preoperative antibiotics. His left groin area was prepped and draped in standard surgical fashion including his left thigh scrotum and penis area. A left inguinal incision was created above the 3 cm firm mass which was consistent with a femoral hernia. Dissection was carried down to the external oblique fascia which was opened up with the Metzenbaum seems. The hernia coming out of the femoral canal onto the thigh was identified inferior to the incision by dissecting off the soft tissue superficially. This was attempted to be reduced but not successfully. We then isolated the cord structures with a Vikas drain and opened up the inguinal floor. Here we were able to see the lead bowel and mesentery going through the femoral canal. Trying to reduce the hernia from the thigh aspect we opened up the peritoneal sac and the bowel was noted to be dusky and purplish. The medial aspect of the Flaquito's ligament was opened up a little bit more to offer little more space to reduce the hernia which was eventually reduced. The bowel continue to be dusky and it was noted that the peritoneum had a band that constricted it and so this was opened up somewhat and then the bowel pinked up even more. It was covered with some saline gauze and after about 3 minutes look very good. The bowel was packed back into the peritoneum and the sac opening was closed with running Vicryl. This was now reduced more proximally into the abdominal area. Attention was then focused to the defect in the femoral canal. A soft Prolene mesh was rolled up and secured and brought through the femoral canal defect. The femoral vessels specifically the vein was noted laterally. Taking several bites with Ethibond 0 suture the Prolene roll was secured to the Flaquito's ligament the inguinal ligament such that the space was closed off where the femoral hernia occurred. The only area which came close to the femoral vein was not sutured and there was a little bit of fatty tissue to protect the mushroom directly on the vein. There was no restriction for the vein. The area was irrigated and then eventually the floor of the inguinal canal closed with Vicryl running suture. Another piece of the Prolene mesh was fashioned look in the smith hole frame and secured to the shelving edge of the inguinal ligament laterally and medially to the conjoined tendon. The external oblique fascia was then closed with Vicryl suture local was used and the role mesh was nice and secure in the spot closing off the femoral canal soft tissue was closed over this. The skin edges run in approximated with a 4-0 Monocryl and Steri-Strips were then placed and a sterile dressing. The end of the case all sponge instrument needle counts were correct. Estimated blood loss was about 10 cc. Specimen sent was none. Patient was extubated returned stable to recovery room thank you
--- NOTE | 2024-04-15 14:46 | MHC.CLN ---
NUTRITION CURRENT DIET=CLEAR LIQUIDS. UNDERWEIGHT WITH BMI=16.1. WEIGHT OVERALL STABLE X ONE YEAR. REPORTS THAT SMALL PORTION OF COLON REMAINS POST RESECTION IN 2007. TAKES ENSURE AT HOME, 1-2 X DAILY. ADD ENSURE BID WHEN DIET ADVANCES. QUALIFIES MODERATELY MALNOURISHED IN THE CONTEXT OF CHRONIC ILLNESS. FOLLOW FOR PO TOLERANCE AND DIET ADVANCEMENT. SEE CLINICAL NUTRITION ASSESSMENT 04/15/24.
[2024-04-15] MEDS: 0.9 % Sodium Chloride Flush 3 ML SYRINGE IVFLUSH ×2 (15:46→19:10)
[2024-04-15] MEDS: traMADoL HCL 50 MG TABLET PO ×2 (18:26→22:36)
[2024-04-15] MEDS: Melatonin 3 MG TABLET 6 MG PO (22:37)
[2024-04-16] VITALS (7 sets, daily range): BP systolic 98–115; BP diastolic 57–82; PULSE 71–80; RESP 18; TEMP 36.3–37; O2SAT 95–98
[2024-04-16] MEDS: Ketorolac Tromethamine 15 MG/ML VIAL IVPUSH ×4 (01:35→19:00)
[2024-04-16] MEDS: 0.9 % Sodium Chloride Flush 3 ML SYRINGE IVFLUSH ×3 (07:41→23:42)
[2024-04-16] MEDS: Enoxaparin Sodium 40 MG/0.4 ML SYRINGE SUBCUT (07:44)
[2024-04-16] MEDS: traMADoL HCL 50 MG TABLET PO ×2 (07:44→18:06)
--- NOTE | 2024-04-16 08:08 | PM.PNGS ---
Subjective Subjective Date of Service: 04/16/24 Interval history: Patient says he feels well Denies significant pain No events reported Tolerating clear liquid Passing flatus and had BMs Physical Exam Vital Signs: Vital Signs: Last Vital Signs Temp 98.0 F 04/16/24 07:43 Pulse 80 04/16/24 07:43 Resp 18 04/16/24 07:43 BP 103/72 04/16/24 07:43 Pulse Ox 97 04/16/24 07:43 O2 Del Method Room Air 04/16/24 07:43 BMI result Body Mass Index 16.1 Const: General: comfortable and no acute distress Resp: Effort & Inspection: normal respiratory effort Cardio: Rate: regular rate GI: Other: Dressings dry, ecchymosis surrounding the left groin Palpation (GI): Soft to palpation, not firm and no guarding Objective Data Active Medications Acetaminophen (Acetaminophen 325 Mg Tablet) 650 mg PO Q6H PRN PRN Reason: Pain, Mild (Pain Scale 1-3), fever or headache Last Admin: 04/15/24 13:28 Dose: 650 mg Documented By: CHELLE Albuterol Sulfate (Albuterol Sulfate 90 Mcg 8 Gm Inhaler) 2 puff INHALE Q6H PRN PRN Reason: for wheezing Enoxaparin Sodium (Enoxaparin Sodium 40 Mg/0.4 Ml Syringe) 40 mg SUBCUT Q24H [facility] Last Admin: 04/16/24 07:44 Dose: 40 mg Documented By: ROBERT Fluticasone/Vilanterol (Fluticasone/Vilanterol 200/25 Blst.W.Dev) 1 puff INHALE DAILY [facility] Last Admin: 04/15/24 21:01 Dose: Not Given Documented By: GREG Non-Admin Reason: not given by previous shift. Ketorolac Tromethamine (Ketorolac Tromethamine 15 Mg/Ml Vial) 15 mg IVPUSH Q6H [facility] Last Admin: 04/16/24 07:41 Dose: 15 mg Documented By: ROBERT Melatonin (Melatonin 3 Mg Tablet) 6 mg PO BEDTIME PRN PRN Reason: Insomnia Last Admin: 04/15/24 22:37 Dose: 6 mg Documented By: GREG Oxycodone HCl (Oxycodone Hcl Immed Release 5 Mg Tablet) 10 mg PO Q4H PRN PRN Reason: Pain, Severe (Pain Scale 7-10) Last Admin: 04/15/24 23:42 Dose: 10 mg Documented By: GREG Sodium Chloride (0.9 % Sodium Chloride Flush 3 Ml Syringe) [facility] Last Admin: 04/16/24 07:41 Dose: 3 ml Documented By: ROBERT Tramadol HCl (Tramadol Hcl 50 Mg Tablet) 50 mg PO TID PRN PRN Reason: pain, moderate Last Admin: 04/16/24 07:44 Dose: 50 mg Documented By: ROBERT Labs 04/14/24 22:16 04/14/24 22:16 Procedures Date of Service Date of Service: 04/16/24 Progress Note: A&P Assessment and plan (1) Femoral hernia of left side with obstruction and without gangrene: Status: Acute Assessment and Plan: Status post repair Doing well Regular diet today Ambulating Patient comfortable with good pain control Time Spent With Patient Time: Total time managing care of this patient today ____ minutes. Quality Stroke Does the patient have a stroke diagnosis?: No VTE Prior VTE?: No VTE Risk Level:: Surgical - low VTE Device Contraindication: N/A - Device Ordered VTE Drug Contraindication: N/A - Med Ordered
[2024-04-16] MEDS: Fluticasone/Vilanterol 200/25 BLST.W.DEV 1 PUFF INHALE (08:09)
--- NOTE | 2024-04-16 08:09 | HO.POSTANES ---
Post Anesthesia Evaluation Post Anesthesia Evaluation Date of Service: 04/16/24 Vital Signs: Vital Signs Temp Pulse Resp BP Pulse Ox O2 Del Method 04/16/24 07:43 98.0 F 80 18 103/72 97 Room Air 04/16/24 03:48 97.3 F 76 18 98/57 L 95 Room Air 04/15/24 23:38 97.3 F 78 16 112/76 96 Room Air Anesthesia: General Endotracheal-GETA Mental Status: Awake Pain Control: Satisfactory Nausea/Vomiting: None Hydration: Adequate Anesthesia-Related Issues: No Anes. Related Issues
[2024-04-17] MEDS: traMADoL HCL 50 MG TABLET PO (02:30)
[2024-04-17] MEDS: Ketorolac Tromethamine 15 MG/ML VIAL IVPUSH ×2 (02:31→08:16)
[2024-04-17 04:00] VITALS: BP 112/63; PULSE 70; RESP 18; TEMP 36.9; O2SAT 95
[2024-04-17 07:56] VITALS: BP 118/68; PULSE 73; RESP 18; TEMP 36.9; O2SAT 95
[2024-04-17] MEDS: Enoxaparin Sodium 40 MG/0.4 ML SYRINGE SUBCUT (08:17)
[2024-04-17] MEDS: oxyCODONE HCl Immed Release 5 MG TABLET 10 MG PO (08:17)
[2024-04-17] MEDS: 0.9 % Sodium Chloride Flush 3 ML SYRINGE IVFLUSH (08:17)
[2024-04-17] MEDS: Fluticasone/Vilanterol 200/25 BLST.W.DEV 1 PUFF INHALE (08:19)
[2024-04-17 08:21] VITALS: PULSE 87; RESP 18; O2SAT 92
--- NOTE | 2024-04-17 08:31 | PM.PNGS ---
Subjective Subjective Date of Service: 04/17/24 Interval history: Tolerating diet Denies pain Feels well States he is ready to be discharged Physical Exam Vital Signs: Vital Signs: Last Vital Signs Temp 98.4 F 04/17/24 07:56 Pulse 87 04/17/24 08:21 Resp 18 04/17/24 08:21 BP 118/68 04/17/24 07:56 Pulse Ox 95 04/17/24 07:56 O2 Del Method Room Air 04/17/24 07:56 BMI result Body Mass Index 16.1 Const: Other: Looks well General: comfortable and no acute distress Resp: Effort & Inspection: normal respiratory effort Cardio: Rate: regular rate GI: Other: Incision clean and dry Palpation (GI): Soft to palpation, not firm, nontender and no guarding Objective Data Active Medications Acetaminophen (Acetaminophen 325 Mg Tablet) 650 mg PO Q6H PRN PRN Reason: Pain, Mild (Pain Scale 1-3), fever or headache Last Admin: 04/15/24 13:28 Dose: 650 mg Documented By: CHELLE Albuterol Sulfate (Albuterol Sulfate 90 Mcg 8 Gm Inhaler) 2 puff INHALE Q6H PRN PRN Reason: for wheezing Enoxaparin Sodium (Enoxaparin Sodium 40 Mg/0.4 Ml Syringe) 40 mg SUBCUT Q24H [facility] Last Admin: 04/17/24 08:17 Dose: 40 mg Documented By: CHELLE Fluticasone/Vilanterol (Fluticasone/Vilanterol 200/25 Blst.W.Dev) 1 puff INHALE DAILY [facility] Last Admin: 04/17/24 08:19 Dose: 1 puff Documented By: COLLEEN Ketorolac Tromethamine (Ketorolac Tromethamine 15 Mg/Ml Vial) 15 mg IVPUSH Q6H [facility] Last Admin: 04/17/24 08:16 Dose: 15 mg Documented By: CHELLE Melatonin (Melatonin 3 Mg Tablet) 6 mg PO BEDTIME PRN PRN Reason: Insomnia Last Admin: 04/15/24 22:37 Dose: 6 mg Documented By: GREG Oxycodone HCl (Oxycodone Hcl Immed Release 5 Mg Tablet) 10 mg PO Q4H PRN PRN Reason: Pain, Severe (Pain Scale 7-10) Last Admin: 04/17/24 08:17 Dose: 10 mg Documented By: CHELLE Sodium Chloride (0.9 % Sodium Chloride Flush 3 Ml Syringe) 3 ml [facility] Last Admin: 04/17/24 08:17 Dose: 3 ml Documented By: CHELLE Tramadol HCl (Tramadol Hcl 50 Mg Tablet) 50 mg PO TID PRN PRN Reason: pain, moderate Last Admin: 04/17/24 02:30 Dose: 50 mg Documented By: JED Labs 04/14/24 22:16 04/14/24 22:16 Procedures Date of Service Date of Service: 04/17/24 Progress Note: A&P Assessment and plan (1) Femoral hernia of left side with obstruction and without gangrene: Status: Acute Assessment and Plan: Status post repair of femoral hernia Doing very well Good GI functions Denies any significant pain Incision looks clean and dry, with ecchymosis Repair site appears intact Okay to DC home Instructions reinforced with patient Time Spent With Patient Time: Total time managing care of this patient today ____ minutes. Quality Stroke Does the patient have a stroke diagnosis?: No VTE Prior VTE?: No VTE Risk Level:: Surgical - low VTE Device Contraindication: N/A - Device Ordered VTE Drug Contraindication: N/A - Med Ordered
--- NOTE | 2024-04-17 09:23 | MHC.CM.PN ---
Patient medically cleared for dc home self care. at bedside to transport home. RN aware.
--- NOTE | 2024-04-17 11:56 | P.DS_ITS ---
DS: Providers Provider Date of Service: 04/17/24 Date of admission: 04/15/24 02:00 Date of discharge: 04/17/24 Primary care physician: Chantell Gamino MD Attending physician on admission: Tonya Ge Attending physician on discharge: Elkin Sanches DS: Diagnosis Discharge Diagnosis (1) Femoral hernia of left side with obstruction and without gangrene: Status: Acute DS: Summary Hospital Course Hospital Course: HPI AT ADMISSION: Tor Albright is a 68 year old male who has stopped smoking a couple weeks ago and has been coughing and felt like he was little more constipated and night at around 08:00 o'clock he started to feel pain in the left groin area. This got worse around 10:00 o'clock and eventually came into the emergency room. He is feeling a little nauseated did not throw up. Here a mass was palpable in the left groin area and CT scan reveals an incarcerated femoral hernia with bowel compromise causing an early obstruction. Patient denies knowing that he has had a hernia before. By CT scan he has a small 1 on the right side as well but it is not incarcerated. Patient has had ischemic colitis in the past and has had a partial colectomy for this. He has had multiple colonoscopies in the past he says without any significant issues. CT scan also showed a significant liver mass and adrenal masses and the patient admits to having hep B and hep C in the past treated and has known about this mass which was biopsied in the past. He says he has not been told that there was a malignancy but some kind of fibrosis and he is followed by Dr. Vital who is aware of his past. He has always been thin and so his BMI of 16 is not new. He has had colectomy in the past for ischemic bowel in [facility] and recently had some back surgery here at [place]. He has had extensive GI care and workup for his hepatitis past and says that technically he has done well and he does not have active hepatitis HOSPITAL COURSE: Given the concern for strangulation, it was recommended to proceed with emergent repair. On 04/15/24, reduction and repair of strangulated left femoral hernia was performed by Dr. Ge without immediate complications. The patient tolerated the procedure well. He had an uncomplicated recovery course. He was tolerating clear liquids and was advanced to solids. He had good pain control. On the day of discharge, he was tolerating a solid diet, had good pain control on oral analgesics, was ambulating without difficulty. His abdomen was benign with clean incision. He was discharged to home on 04/17/24 in stable condition. He is to follow up in the office in 2 weeks. Status at Discharge Functional status at discharge: independent ambulation Time Attestation Discharge Coordination Time (in mins): 35 Quality: Safe Use of Opioids Does Pt have an Active Cancer Diagnosis on the Problem List?: No Quality: Stroke Does the patient have a stroke diagnosis?: No Physical Exam Vital Signs: Vital Signs: Last Vital Signs Temp 98.4 F 04/17/24 07:56 Pulse 87 04/17/24 08:21 Resp 18 04/17/24 08:21 BP 118/68 04/17/24 07:56 Pulse Ox 95 04/17/24 07:56 O2 Del Method Room Air 04/17/24 07:56 BMI result Body Mass Index 16.1 Const: General: comfortable, no acute distress and alert Resp: Effort & Inspection: normal respiratory effort GI: Inspection: Yes incision (clean) Palpation (GI): Soft to palpation and no guarding Skin: General skin exam: no rashes or lesions noted DS: Data Data Completed and Pending Completed studies during hospitalization [Text1]: Procedures Excision of Lumbar Vertebral Disc, Open Approach (03/26/23) Fusion of 2 or more Lumbar Vertebral Joints with Interbody Fusion Device, Anterior Approach, Anterior Column, Open Approach (03/26/23) Insertion of Interspinous Process Spinal Stabilization Device into Lumbar Vertebral Joint, Open Approach (03/26/23) Monitoring of Peripheral Nervous Electrical Activity, Intraoperative, External Approach (03/26/23) Supplement Left Femoral Region with Synthetic Substitute, Open Approach (04/15/24) Discharge Plan Discharge Anticipated Discharge Date/Time: 04/17/24 01:10 Patient Disposition: Home, Self-Care Discharge Diagnosis: Femoral hernia Referrals: Chantell Gamino MD [Primary Care Provider] - 1 Week Elkin Sanches MD [Physician] - 2 Weeks Discharge Medications: New oxycodone-acetaminophen [Percocet] 5-325 mg tablet 1 tab PO Q4-6H PRN (Reason: pain) Qty: 15 0RF Rx Instructions: Partial Fill upon patient request. Continued diclofenac sodium [Arthritis Pain (diclofenac)] 1 % gel 4 g topical QID PRN (Reason: joint pains) Qty: 100 0RF Rx Instructions: apply to single knee, ankle, foot; for foot includes sole/toes/top of foot budesonide-formoterol [Symbicort] 160-4.5 mcg/actuation HFA aerosol inhaler 2 puff inhalation Q12H Qty: 10.2 3RF albuterol sulfate 90 mcg/actuation HFA aerosol inhaler 2 puff inhalation Q6H PRN (Reason: for wheezing) Qty: 8.5 1RF ashwagandha extract 120 mg capsule 129 mg PO DAILY PRN (Reason: Stress/Anxiety) tramadol 50 mg tablet 50 mg PO TID PRN (Reason: pain, moderate) 30 Days Qty: 120 3RF Discharge Orders: Discharge Order (Routine); Ordered 04/17/24 Ordered By: Elkin Sanches Diet: Advance to usual diet Activity on Discharge: No heavy lifting Stand Alone Forms: Patient Portal Discharge page Print Language: Malawian Activity Restrictions/Additional Instructions: If the incision area is tender, you may apply an ice pack for short intervals (No more than 20 minutes on, followed by at least 20 minutes off). Do not apply heat. Do not use creams, lotions, or topical antibiotics unless instructed to do so by your surgeon. These can cause infection or allergic reaction. No lifting more than 20 lbs Okay to shower No strenuous activities Call the office for follow-up in 2 weeks - with Dr. Sanches Call Your Doctor If: -Your temperature exceeds 101.5? F -You experience excessive pain or swelling -You have an unexpected reaction to medication -You have excessive bleeding -You experience continued vomiting/nausea -Your incision begins to separate -Your incision shows signs of infection such as increased redness, swelling, excessive pain, drainage (light blood or clear fluid is normal) or heat Care Plan Goals: Returned to baseline health Health Concerns: Postop pain Plan of Treatment: Oral pain meds Limitation of activities Assessment: Doing well postop Discharge Date/Time: 04/17/24 10:47
--- NOTE | 2024-04-21 08:22 | P.CDIM_ITS ---
PROVIDER RESPONSE TEXT: To clarify, the appropriate diagnosis supported by the clinical indicators: Malnutrition: mild QUERY TEXT: PHYSICIAN'S DOCUMENTATION REQUEST Date of Query: 04/17/2024 07:32 AM EDT Patient Name: Tor Albright Admit Date: 04/15/2024 Dear Tonya Ge MD, A review of the medical record indicates additional documentation may be needed. Please review below and update the documentation accordingly. Clinical Indicators: Clinical nutrition notes: Patient qualifies for moderately malnourished in the context of chronic ill ness. BMI 16.1 Follow for PO tolerance and diet advancement. If possible, please provide an associated diagnosis related to the abnormal BMI, such as: Malnutrition mild, moderate, severe Underweight Cachexia Anorexia Other (explain) Clinically unable to determine (explain) Thank you, Muriel Yen, CCS, CDIS Use of terms such as suspected, likely, concern for, or probable (associated with a specific diagnosi s that is being evaluated, monitored, or treated as if it exists) are acceptable and can be coded in the inpatient se tting, when documented at the time of discharge. Please use your independent medical judgment in providing your response. THIS QUERY IS PART OF THE PERMANENT MEDICAL RECORD
== END 2024-04-17 10:47 | disposition home or self-care (01) | DRG 352 ==
LOC: HO.ED 04-15 01:37 → HO.EDOVER 04-15 02:13 → HO.S3 04-15 07:19
PROVIDERS: Admitting Provider Surgery; Emergency Provider Internal Medicine; PCP Internal Medicine; Visit Provider Surgery
PROC: 0YU80JZ Supplement Left Femoral Region with Synthetic Substitute, Open Approach (ICD-10-PCS; principal; 2024-04-15 05:00)
DX: K41.30 Unilateral femoral hernia, with obstruction, without gangrene, not specified as recurrent (principal); Z87.891 Personal history of nicotine dependence; Z91.040 Latex allergy status; Z79.899 Other long term (current) drug therapy
CPT/HCPCS: 36415; 74177; 80048; 80076; 81003; 83605; 83690; 85025; 86850; 86900; 86901; 93005; 94640; 99285; C1781; J1100; J1650; J1885; J2250; J2270; J2371; J2405; J2543; J2704; J2795; J3010; Q9967

== ENCOUNTER → 2024-04-15 01:35 | Outpatient (BNV) | payer MEDICARE, SELFPAY | PROVIDERS: Admitting Provider Surgery; Emergency Provider Internal Medicine; PCP Internal Medicine; Visit Provider Internal Medicine Cardiovascular Disease | DX: Z01.818 Encounter for other preprocedural examination (principal) | CPT/HCPCS: 93010 ==

== ENCOUNTER → 2024-04-15 02:00 | Outpatient (BNV) | payer MEDICARE, SELFPAY | PROVIDERS: Admitting Provider Surgery; Emergency Provider Internal Medicine; PCP Internal Medicine; Visit Provider Surgery | DX: K41.30 Unilateral femoral hernia, with obstruction, without gangrene, not specified as recurrent (principal) | CPT/HCPCS: 49553; 99024; 99222; 99223; 99499 ==

== ENCOUNTER 2024-04-23 08:23 | Outpatient (AMB) | payer MEDICARE, SELFPAY ==
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
== END 2024-04-23 10:03 | disposition home or self-care (01) ==
PROVIDERS: PCP Internal Medicine; Visit Provider Internal Medicine
DX: Z09 Encounter for follow-up examination after completed treatment for conditions other than malignant neoplasm (principal); K41.30 Unilateral femoral hernia, with obstruction, without gangrene, not specified as recurrent; R16.0 Hepatomegaly, not elsewhere classified
CPT/HCPCS: 99495

== ENCOUNTER 2024-05-07 08:13 | Outpatient (AMB) | payer MEDICARE, SELFPAY ==
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
[2024-05-07 08:30] VITALS: BP 139/81; PULSE 71
== END 2024-05-07 08:34 | disposition home or self-care (01) ==
PROVIDERS: PCP Internal Medicine; Visit Provider Surgery
DX: Z98.890 Other specified postprocedural states (principal); Z87.19 Personal history of other diseases of the digestive system
CPT/HCPCS: 99024

== ENCOUNTER → 2024-05-07 08:13 | Outpatient (BNVA) | payer MEDICARE, SELFPAY | PROVIDERS: PCP Internal Medicine; Visit Provider Surgery | DX: Z09 Encounter for follow-up examination after completed treatment for conditions other than malignant neoplasm (principal); Z98.890 Other specified postprocedural states; Z87.19 Personal history of other diseases of the digestive system | CPT/HCPCS: 99212 ==

== ENCOUNTER 2024-06-03 08:09 | Outpatient (REF) | payer MEDICARE, SELFPAY ==
--- NOTE | ~2024-06-03 | MR_ITS ---
EXAMINATION: MR ABDOMEN WITHOUT AND WITH CONTRAST CLINICAL INFORMATION: Liver and adrenal masses. COMPARISON: CT abdomen/pelvis 04/14/2024. TECHNIQUE: MR abdomen was performed without and with use of 4.5 mL intravenous Gadavist gadolinium contrast. Postcontrast images are performed in multiphase dynamic sequences. Imaging was performed in 3 planes. FINDINGS: LUNG BASES: Partially seen large blebs in the left greater than right anterior lower lungs with severe emphysema. LIVER, GALLBLADDER, AND BILIARY TREE: The liver is normal in size, signal and morphology. There is a 4.7 x 4.5 cm liver mass in the posterior right hepatic lobe demonstrating heterogeneous predominantly peripheral early enhancement and diffuse washout on later phases of contrast with suggestion of capsular formation. On T2 images the lesion demonstrates mild low T2 signal and on precontrast T1 images, the lesion is low in signal. On DWI images there is associated restricted diffusion. Abutting the right lateral margin of the lesion, there is a 1.6 cm arterially enhancing nodule (12:25) with washout. Surrounding these lesions there is trace intrahepatic biliary ductal dilatation. Interesting, there is a feeding vessel traversing through the large mass, for example images 29 series 12 and 25 series 16. Layering T1 hyperintense bile/sludge in the gallbladder. No evidence of gallbladder wall thickening or pericholecystic inflammatory changes. No extrahepatic biliary ductal dilatation. PANCREAS: Unremarkable. SPLEEN: Normal. ADRENAL GLANDS: A 1.4 cm right adrenal nodule, demonstrates loss of signal in the opposed-phase dual echo images (9:19), suggestive of an adrenal adenoma. Asymmetric thickening of the medial limb of the left adrenal gland is redemonstrated measuring up to 0.9 cm (14:22). There is suggestion of some degree of signal loss in the opposed-phase dual echo images (19:21), although evaluation is limited in this region due to motion, characterization is incomplete. KIDNEYS AND URETERS: Simple-appearing cortical cysts, largest in the upper pole of the left kidney measuring 6.8 cm, for which no imaging follow up is recommended. Otherwise, unremarkable. ABDOMINAL WALL: No significant hernia is appreciated. LYMPH NODES: No lymphadenopathy. VASCULAR: Unremarkable. OSSEOUS STRUCTURES: Susceptibility artifacts from posterior spinal fusion hardware and discectomies from L3 through L5. Degenerative changes. No acute or aggressive-appearing osseous findings. MR/MR abdomen wo/w con IMPRESSION: A 4.7 cm right hepatic lobe liver mass with immediately adjacent 1.6 cm satellite enhancing nodule are concerning for malignancy. Differential considerations include preferentially hepatocellular carcinoma in view of the pattern of washout, and less favorable cholangiocarcinoma or metastases. However, the constellation of features are atypical, including the mild low T2 signal which is unusual for the previously mentioned differential considerations, as well as the presence of a feeding vessel traversing through the large mass which could potentially indicate a less aggressive/indolent process. Further evaluation with tissue sampling is advised. A 1.4 cm right adrenal nodule demonstrates homogeneous loss of signal in the opposed-phase dual echo images suggestive of an adenoma. Asymmetric thickening of the medial limb of the left adrenal gland is incompletely characterized due to motion, underlying metastatic lesion is not excluded. Consider evaluation with CT adrenal washout protocol or PET/CT. Electronically signed by: Fannie Mckeon MD 06/05/2024 11:58 AM EDT
[2024-06-03] MEDS: gadobutroL 7.5 ML VIAL IVPUSH (09:56)
[2024-06-03 12:42] LABS: MANUAL DIFF FLAG NO
[2024-06-03 12:57] LABS: Alanine Aminotransferase 16 U/L (0-40); Albumin Level 4.5 g/dL (3.5-5.0); Alkaline Phosphatase 104 U/L (39-117); Aspartate Amino Transferase 24 U/L (5-37); Bilirubin Direct 0.2 mg/dL (0.0-0.5); Bilirubin Total 0.5 mg/dL (0.0-1.0); Total Protein 7.2 g/dL (6.5-8.0)
[2024-06-03 13:06] LABS: Basophils Absolute Auto 0.1 X10*3/uL (0.0-0.2); Basophils Percent Auto 0.9 % (0-2); Eosinophils Absolute Auto 0.1 X10*3/uL (0.0-0.4); Eosinophils Percent Auto 0.8 % (0-4); Hematocrit 45.9 % (42.0-52.0); Hemoglobin 15.4 g/dl (14.0-18.0); Imm Gran Abs Auto 0.02 X10*3/uL (0.00-0.03); Imm Gran Pct Auto 0.3 % (0.0-0.4); Lymphocytes Absolute Auto 1.3 X10*3/uL (1.2-4.9); Lymphocytes Percent Auto 20.6 % (20-40); Mean Corpuscular HGB Conc 33.6 g/dl (31.0-36.0); Mean Corpuscular Hemoglobin 32.6 pg (27.0-33.0); Mean Corpuscular Volume 97.2 fL (80.0-98.0); Mean Platelet Volume 9.4 fL (9.4-12.4); Monocytes Absolute Auto 0.6 X10*3/uL (0.1-1.2); Monocytes Percent Auto 9.8 % (2-11); Neutrophils Absolute Auto 4.4 x10*3/uL (2.0-8.3); Neutrophils Percent Auto 67.6 % (45-73); Platelet Count 255 X10*3/uL (160-400); Red Blood Count 4.72 X10*6/uL (4.60-5.80); Red Cell Distribution Width 13.4 % (11.0-16.0); White Blood Count 6.5 X10*3/uL (4.8-10.8)
[2024-06-04 13:08] LABS: Alpha Fetoprotein 1.8 ng/mL (<6.1)
[2024-06-10 01:22] LABS: FIB-ALT 13 U/L (9-46); FIB-Alpha-2-Macroglobulin 406 mg/dL (106-279); FIB-Apolipoprotein A1 137 mg/dL (94-176); FIB-GGT 16 U/L (3-70); FIB-Haptoglobin 115 mg/dL (43-212); FIB-Total Bilirubin 0.4 mg/dL (0.2-1.2); Liver Fibrosis Stage F3; Nec Inflam Act Grade A0; Nec Inflam Act Score 0.06
== END 2024-06-03 08:10 | disposition home or self-care (01) ==
LOC: HO.MRI 08:09
PROVIDERS: Absent Provider Internal Medicine Gastroenterology; PCP Internal Medicine; Visit Provider Psychiatry & Neurology Neurology
DX: R16.0 Hepatomegaly, not elsewhere classified (principal)
CPT/HCPCS: 36415; 74183; 80076; 81596; 82105; 85025; A9585

== ENCOUNTER 2024-06-05 09:43 | Outpatient (REF) | payer MEDICARE, SELFPAY ==
[2024-06-05 10:38] LABS: Basophils Absolute Auto 0.1 X10*3/uL (0.0-0.2); Basophils Percent Auto 1.1 % (0-2); Eosinophils Absolute Auto 0.1 X10*3/uL (0.0-0.4); Eosinophils Percent Auto 1.5 % (0-4); Hematocrit 45.1 % (42.0-52.0); Hemoglobin 15.3 g/dl (14.0-18.0); Imm Gran Abs Auto 0.01 X10*3/uL (0.00-0.03); Imm Gran Pct Auto 0.2 % (0.0-0.4); Lymphocytes Absolute Auto 1.1 X10*3/uL (1.2-4.9); Lymphocytes Percent Auto 20.3 % (20-40); MANUAL DIFF FLAG NO; Mean Corpuscular HGB Conc 33.9 g/dl (31.0-36.0); Mean Corpuscular Hemoglobin 33.3 pg (27.0-33.0); Mean Platelet Volume 9.6 fL (9.4-12.4); Monocytes Absolute Auto 0.6 X10*3/uL (0.1-1.2); Monocytes Percent Auto 11.3 % (2-11); Neutrophils Absolute Auto 3.5 x10*3/uL (2.0-8.3); Neutrophils Percent Auto 65.6 % (45-73); Platelet Count 243 X10*3/uL (160-400); Red Cell Distribution Width 13.4 % (11.0-16.0); White Blood Count 5.3 X10*3/uL (4.8-10.8)
[2024-06-05 11:37] LABS: Alanine Aminotransferase 16 U/L (0-40); Albumin Level 4.2 g/dL (3.5-5.0); Alkaline Phosphatase 109 U/L (39-117); Anion Gap 11 (12-20); Aspartate Amino Transferase 18 U/L (5-37); Bilirubin Total 0.5 mg/dL (0.0-1.0); Blood Urea Nitrogen 11 mg/dL (9-16); Calcium 9.4 mg/dL (8.4-10.2); Carbon Dioxide 26 mmol/L (22-29); Chloride 110 mmol/L (96-108); Estimated Glomerular Filt Rate > 60; Glucose Random 82 mg/dL (60-115); Iron 192 mcg/dL (45-160); Percent Iron Saturation 72 % (15-50); Potassium 4.1 mmol/L (3.3-5.1); Sodium 143 mmol/L (135-145); Total Iron Binding Capacity 267 mcg/dL (228-428); Total Protein 6.9 g/dL (6.5-8.0); Unsaturated Iron Binding 75 ug/dL
[2024-06-05 11:43] LABS: Ferritin 23 ng/mL (20-250)
== END 2024-06-05 09:44 | disposition home or self-care (01) ==
LOC: HO.BBR 09:43
PROVIDERS: PCP Internal Medicine; Visit Provider Internal Medicine Medical Oncology
DX: E83.110 Hereditary hemochromatosis (principal)
CPT/HCPCS: 36415; 80053; 82728; 83540; 85025

== ENCOUNTER 2024-06-10 09:12 | Outpatient (REF) | payer MEDICARE, SELFPAY ==
--- NOTE | ~2024-06-10 | CT_ITS ---
EXAMINATION: CT LOW-DOSE SCREENING CHEST WITHOUT CONTRAST CLINICAL INFORMATION: Solitary pulmonary nodule. Nicotine dependence. The patient is a current smoker with a 40 pack-year history of smoking. COMPARISON: CT chest 11/22/2023. TECHNIQUE: Multidetector volumetric CT imaging of the chest is performed on a Siemens SOMATOM Definition scanner without contrast using low dose technique. Additional 2D coronal and sagittal reformatted images and axial 3D maximum intensity projection (MIP) images are generated on the CT workstation. This CT examination was performed using dose optimization techniques as appropriate, variously including the following: *Automated exposure control *Adjustment of mA and/or kV according to patient size (this includes techniques or standardized protocols for targeted exams where dose is matched to indication/reason for exam; i.e. extremities or head) *Use of iterative reconstruction technique TOTAL EXAM DLP: 43 mGy-cm. CTDIvol: 1.06 mGy. FINDINGS: PULMONARY NODULES: The previously seen 7 x 2 x 2 mm density on the patient's baseline study is unchanged (5:280 compare prior 5:282). Some other smaller nodules are also unchanged including a 4.6 mm right upper lobe nodule (5:237 compare prior 5:239), and a 3 mm lingular nodule (5:407 compare prior 5:416). No new, increasing sized or suspicious nodule. LUNGS: Lungs bilaterally symmetrically expanded. Again seen are severe emphysematous changes along with bronchial thickening and traction bronchiectasis with right upper lobe scarring. No effusion or pneumothorax. Central airways patent. MEDIASTINUM: No mediastinal, hilar or axillary adenopathy or free fluid collection. CORONARY ARTERY CALCIFICATION: Moderate. THYROID GLAND: Unremarkable to the extent seen. CARDIOVASCULAR STRUCTURES: Aortic and heart size normal. No pericardial effusion. CHEST WALL/AXILLA: Unremarkable. UPPER ABDOMEN: Bilateral benign Bosniak class I renal cysts are again noted which require no additional imaging or follow-up. No solid renal masses are seen. OSSEOUS STRUCTURES: No suspicious focal findings. Lumbar fixation hardware is again noted. CT/CT lung screen follow up IMPRESSION: Stable pulmonary nodules. Severe emphysema. ASSESSMENT: 1. Lung-RADS Category 2: Benign appearance or behavior of nodules. N/A 2. Lung-RADS Category S: Negative. There are no clinically significant or potentially clinically significant findings not related to the lungs requiring urgent additional evaluation. RECOMMENDATION: Continued routine annual low-dose CT lung screening in 1 year is recommended. An order for CT CHEST LOW DOSE CANCER SCREENING ([id number]) can be placed. Electronically signed by: Jose Luna MD 07/26/2024 11:14 AM LES
== END 2024-06-10 09:13 | disposition home or self-care (01) ==
LOC: HO.CT 09:12
PROVIDERS: PCP Internal Medicine; Visit Provider Nurse Practitioner Family
DX: R91.1 Solitary pulmonary nodule (principal)
CPT/HCPCS: 71250; 99212

== ENCOUNTER 2024-06-10 10:12 | Outpatient (AMB) | payer MEDICARE, SELFPAY ==
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
[2024-06-10 10:28] VITALS: BP 100/66; PULSE 74; O2SAT 98; BMI 16.1
== END 2024-06-10 13:35 | disposition home or self-care (01) ==
PROVIDERS: PCP Internal Medicine; Visit Provider Internal Medicine
DX: R16.0 Hepatomegaly, not elsewhere classified (principal); R91.1 Solitary pulmonary nodule

== ENCOUNTER 2024-07-02 10:57 | Outpatient (AMB) | payer MEDICARE, SELFPAY ==
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
[2024-07-02 11:11] VITALS: BP 120/70; PULSE 76; O2SAT 96; BMI 16.1
== END 2024-07-02 12:27 | disposition home or self-care (01) ==
PROVIDERS: PCP Internal Medicine; Visit Provider Internal Medicine
DX: Z00.01 Encounter for general adult medical examination with abnormal findings (principal); Z13.820 Encounter for screening for osteoporosis; R16.0 Hepatomegaly, not elsewhere classified; R91.1 Solitary pulmonary nodule; J44.89 Other specified chronic obstructive pulmonary disease; E83.110 Hereditary hemochromatosis; G62.9 Polyneuropathy, unspecified; R63.6 Underweight; Z71.89 Other specified counseling; Z00.00 Encounter for general adult medical examination without abnormal findings

== ENCOUNTER → 2024-07-02 10:57 | Outpatient (BNVA) | payer MEDICARE, SELFPAY | PROVIDERS: PCP Internal Medicine; Visit Provider Internal Medicine | DX: Z00.01 Encounter for general adult medical examination with abnormal findings (principal); R16.0 Hepatomegaly, not elsewhere classified; R91.1 Solitary pulmonary nodule; J44.89 Other specified chronic obstructive pulmonary disease; E83.110 Hereditary hemochromatosis; G62.9 Polyneuropathy, unspecified; R63.6 Underweight; Z71.89 Other specified counseling | CPT/HCPCS: 99397; 99497 ==

== ENCOUNTER 2024-07-06 07:05 | Outpatient (REF) | payer MEDICARE, SELFPAY ==
[2024-07-06 10:41] LABS: Cholesterol 163 mg/dL (<200); HDL Cholesterol 46 mg/dL (>40); LDL Cholesterol Calculated 100 mg/dL (<100); Triglycerides 86 mg/dL (<150)
[2024-07-06 10:42] LABS: Vitamin D 25-OH Total 27.2 ng/mL (>30)
== END 2024-07-06 07:06 | disposition home or self-care (01) ==
LOC: HO.HMGCLDS 07:05
PROVIDERS: PCP Internal Medicine; Visit Provider Internal Medicine
DX: Z13.220 Encounter for screening for lipoid disorders (principal); Z86.39 Personal history of other endocrine, nutritional and metabolic disease
CPT/HCPCS: 36415; 80061; 82306

== ENCOUNTER 2024-07-27 09:17 | Outpatient (AMB) | payer MEDICARE, SELFPAY ==
[2024-07-27 09:27] VITALS: BP 130/68; PULSE 83; O2SAT 99; BMI 16.1
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
== END 2024-07-27 09:57 | disposition home or self-care (01) ==
PROVIDERS: PCP Internal Medicine; Visit Provider Internal Medicine
DX: J44.89 Other specified chronic obstructive pulmonary disease (principal); R91.1 Solitary pulmonary nodule; Z87.891 Personal history of nicotine dependence
CPT/HCPCS: 94010; 99213

== ENCOUNTER → 2024-07-27 09:17 | Outpatient (BNVA) | payer MEDICARE, SELFPAY | PROVIDERS: PCP Internal Medicine; Visit Provider Internal Medicine | DX: J44.89 Other specified chronic obstructive pulmonary disease (principal); F17.210 Nicotine dependence, cigarettes, uncomplicated; R91.1 Solitary pulmonary nodule; Z79.899 Other long term (current) drug therapy | CPT/HCPCS: 94010; 99212 ==

== ENCOUNTER 2024-07-31 08:24 | Outpatient (REF) | payer MEDICARE, SELFPAY ==
--- NOTE | ~2024-07-31 | MM_ITS ---
EXAMINATION: BONE DENSITOMETRY CLINICAL INDICATION: Encounter for screening for osteoporosis. COMPARISON: This is the patient's baseline examination. TECHNIQUE: Using a [employer]io DXA System (software version: 13.1) manufactured by [employer], dual-energy x-ray absorptiometry was performed of the lumbar spine, left hip and left forearm radius 33%. The images are of good technical quality. Summary results are attached. FINDINGS: LEFT FEMUR, NECK: BMD 0.757 g/cm2, Z-score -0.5, T-score -2.4, osteopenia. LEFT FEMUR, TOTAL: BMD 0.865 g/cm2, Z-score -0.3, T-score -1.6, osteopenia. AP SPINE L1-L2 (excluding L3 and L4): The data of L1-L4 has been changed to exclude the L3 and L4 vertebral bodies, because hardware at these levels may cause overestimation of lumbar spine density. BMD 1.068 g/cm2, Z-score 0.5, T-score -1.1, osteopenia. LEFT FOREARM RADIUS 33%: BMD 0.934 g/cm2, Z-score 0.2, T-score -0.6, normal. IDENTIFIED RISK FACTORS: Rheumatoid arthritis, osteoporosis, low body weight, secondary osteoporosis (intestinal or bowel disease, not IBS), secondary osteoporosis (chronic liver disease). HISTORY OF FRACTURE: None listed. MEDICATIONS: None listed. MM/XR DEXA axial skeleton IMPRESSION: 1. DIAGNOSIS: Osteopenia based on the lowest T-score value of -2.4 in the femoral neck applying World Health Organization criteria. 2. 10-YEAR FRACTURE RISK PREDICTION, FRAX: Major osteoporotic fracture (clinical spine, forearm, hip or shoulder) 8.3%. Hip fracture 2.9%. 3. Treatment Recommendations: NOF guidelines recommend consideration for treatment in postmenopausal women and men age 50 and older presenting with the following: -A hip or vertebral (clinical or morphometric) fracture. -T-score less than or equal to -2.5 at the femoral neck or spine after appropriate evaluation to exclude secondary causes. -Low bone mass at the hip or spine and a 10-year fracture probability by FRAX of greater than or equal to 3% for hip fracture or greater than or equal to 20% for major osteoporotic fracture based on the [place] adapted WHO algorithm. 4. Other Recommendations: All treatment decisions require clinical judgment and consideration of individual patient factors, including patient preferences, comorbidities, previous drug use, risk factors not captured in the FRAX model (e.g. frailty, falls, vitamin D deficiency, increased bone turnover, interval significant decline in bone density) and possible under or overestimation of fracture risk by FRAX. Additional medical evaluation for secondary cause of low bone mineral density may be appropriate. FUTURE SCAN RECOMMENDATION: People with diagnosed cases of osteoporosis or at high risk for fracture should have regular bone mineral density tests. For patients eligible for Medicare, routine testing is allowed once every 2 years. The testing frequency can be increased to one year for patients who have rapidly progressing disease, those who are receiving or discontinuing medical therapy to restore bone mass, or have additional risk factors. Electronically signed by: Arie Conteh MD 07/31/2024 06:31 PM [facility]
== END 2024-07-31 08:25 | disposition home or self-care (01) ==
LOC: HO.MAMMO 08:24
PROVIDERS: PCP Internal Medicine; Visit Provider Internal Medicine
DX: Z13.820 Encounter for screening for osteoporosis (principal); R63.6 Underweight; M81.0 Age-related osteoporosis without current pathological fracture
CPT/HCPCS: 77080

== ENCOUNTER 2024-08-05 08:10 | Outpatient (REF) | payer MEDICARE, SELFPAY ==
[2024-08-05 08:21] LABS: Basophils Absolute Auto 0.1 X10*3/uL (0.0-0.2); Basophils Percent Auto 1.3 % (0-2); Eosinophils Absolute Auto 0.2 X10*3/uL (0.0-0.4); Eosinophils Percent Auto 2.9 % (0-4); Hematocrit 44.2 % (42.0-52.0); Hemoglobin 15.1 g/dl (14.0-18.0); Imm Gran Abs Auto 0.02 X10*3/uL (0.00-0.03); Imm Gran Pct Auto 0.4 % (0.0-0.4); Lymphocytes Absolute Auto 1.2 X10*3/uL (1.2-4.9); Lymphocytes Percent Auto 22.4 % (20-40); MANUAL DIFF FLAG NO; Mean Corpuscular HGB Conc 34.2 g/dl (31.0-36.0); Mean Corpuscular Hemoglobin 32.8 pg (27.0-33.0); Mean Corpuscular Volume 95.9 fL (80.0-98.0); Mean Platelet Volume 9.1 fL (9.4-12.4); Monocytes Absolute Auto 0.6 X10*3/uL (0.1-1.2); Monocytes Percent Auto 11.1 % (2-11); Neutrophils Absolute Auto 3.4 x10*3/uL (2.0-8.3); Neutrophils Percent Auto 61.9 % (45-73); Platelet Count 248 X10*3/uL (160-400); Red Blood Count 4.61 X10*6/uL (4.60-5.80); Red Cell Distribution Width 12.8 % (11.0-16.0); White Blood Count 5.5 X10*3/uL (4.8-10.8)
[2024-08-05 10:00] LABS: Alanine Aminotransferase 22 U/L (0-40); Albumin Level 4.3 g/dL (3.5-5.0); Alkaline Phosphatase 123 U/L (39-117); Anion Gap 15 (12-20); Aspartate Amino Transferase 27 U/L (5-37); Bilirubin Total 0.5 mg/dL (0.0-1.0); Blood Urea Nitrogen 12 mg/dL (9-16); Calcium 9.6 mg/dL (8.4-10.2); Carbon Dioxide 29 mmol/L (22-29); Chloride 106 mmol/L (96-108); Estimated Glomerular Filt Rate > 60; Ferritin 20 ng/mL (20-250); Glucose Random 84 mg/dL (60-115); Iron 95 mcg/dL (45-160); Percent Iron Saturation 39 % (15-50); Potassium 4.3 mmol/L (3.3-5.1); Sodium 146 mmol/L (135-145); Total Iron Binding Capacity 244 mcg/dL (228-428); Total Protein 6.6 g/dL (6.5-8.0); Unsaturated Iron Binding 149 ug/dL
== END 2024-08-05 08:11 | disposition home or self-care (01) ==
LOC: HO.BBR 08:10
PROVIDERS: PCP Internal Medicine; Visit Provider Internal Medicine Medical Oncology
DX: E83.110 Hereditary hemochromatosis (principal); R25.1 Tremor, unspecified; M79.641 Pain in right hand; G62.9 Polyneuropathy, unspecified; M54.16 Radiculopathy, lumbar region; M47.816 Spondylosis without myelopathy or radiculopathy, lumbar region
CPT/HCPCS: 36415; 80053; 82728; 83540; 85025; 99212

== ENCOUNTER 2024-08-05 10:46 | Outpatient (AMB) | payer MEDICARE, SELFPAY ==
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
[2024-08-05 11:04] VITALS: BP 112/70; PULSE 77; O2SAT 100; BMI 16.6
== END 2024-08-05 11:56 | disposition home or self-care (01) ==
PROVIDERS: PCP Internal Medicine; Visit Provider Nurse Practitioner Family
DX: G62.9 Polyneuropathy, unspecified (principal); R25.1 Tremor, unspecified; M79.641 Pain in right hand; M43.16 Spondylolisthesis, lumbar region; M47.816 Spondylosis without myelopathy or radiculopathy, lumbar region
CPT/HCPCS: 99214

== ENCOUNTER 2024-08-26 08:18 | Outpatient (AMB) | payer MEDICARE, SELFPAY ==
[2024-08-26 08:32] VITALS: BP 141/91; PULSE 82; O2SAT 96; BMI 16.6
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
== END 2024-08-26 08:40 | disposition home or self-care (01) ==
PROVIDERS: PCP Internal Medicine; Visit Provider Anesthesiology
DX: M51.369 Other intervertebral disc degeneration, lumbar region without mention of lumbar back pain or lower extremity pain (principal); M47.816 Spondylosis without myelopathy or radiculopathy, lumbar region; M96.1 Postlaminectomy syndrome, not elsewhere classified; G89.4 Chronic pain syndrome
CPT/HCPCS: 99214

== ENCOUNTER → 2024-08-26 08:18 | Outpatient (BNVA) | payer MEDICARE, SELFPAY | PROVIDERS: PCP Internal Medicine; Visit Provider Anesthesiology | DX: M51.360 Other intervertebral disc degeneration, lumbar region with discogenic back pain only (principal); M47.816 Spondylosis without myelopathy or radiculopathy, lumbar region; M96.1 Postlaminectomy syndrome, not elsewhere classified; G89.4 Chronic pain syndrome | CPT/HCPCS: 99212 ==

== ENCOUNTER 2024-09-08 08:39 | Day surgery (SDC) | payer MEDICARE, SELFPAY ==
--- NOTE | 2024-09-07 14:17 | PC.NURSE ---
spoke to patient takes 250mg of naproxen twice a day for months [facility] aware if patient cancelled need to call and inform patient. called patient a second time will be here at 9 am if not called and cancelled
[2024-09-08] VITALS (15 sets, daily range): BP systolic 110–141; BP diastolic 78–93; PULSE 63–99; RESP 16–22; TEMP 36.3; O2SAT 96–100; BMI 16.4
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
[2024-09-08 09:48] LABS: Prothrombin Time 12.1 SEC (10.9-12.4)
[2024-09-08 09:51] LABS: Partial Thromboplastin Time 31.6 SEC (26.0-36.8)
--- NOTE | 2024-09-08 10:24 | PC.NURSE ---
Todd Cervantes aware patient takes naproxen BID and last dose was yesterday night. Okay to proceed per him.
--- NOTE | 2024-09-08 10:26 | MHC.SHP ---
Pre-Procedural Eval Section A - 24 Hr Update-Section A only Date of Service: 09/08/24 Section B - Complete if H&P > 30 days Chief Complaint: hepatomegaly Details of Present Illness: 69 y/o man with a right lobe liver mass Relevant Family History (Specify if Yes): No Relevant Social History: None Present Medications: see Short Stay Collaborative assessment Medical History: Significant History History of Previous Operations: Relevant previous surgery/procedure and date(s) Allergies: Allergies Allergy/AdvReac Type Severity Reaction Status Date / Time latex [LATEX] Allergy Intermediate BLISTERS Verified 09/08/24 09:16 levofloxacin [From LEVAQUIN] Allergy Intermediate GI Verified 09/08/24 09:16 distress/flushing/burning Review of Systems Sugical H&P ROS: Negative: Constitution, Cardiovascular, Respiratory and Gastrointestinal (no abdominal pain) Exam Surgical H&P Exam: Normal: Heart, Normal: Lungs, Normal: Abdomen (soft, flat, nt), Normal: Skin and Normal: Neurological Plan 69 y/o man with a right lobe liver mass -Liver mass biopsy Time Spent With Patient Time: Total time managing care of this patient today ____ minutes.
[2024-09-08] MEDS: Midazolam HCl 5 MG/ML VIAL 1 MG IVPUSH (10:48)
[2024-09-08] MEDS: fentaNYL citrate/PF 100 MCG/2 ML VIAL 50 MCG IVPUSH (10:48)
[2024-09-08] MEDS: Midazolam HCl 5 MG/ML VIAL IVPUSH (10:53)
[2024-09-08] MEDS: fentaNYL citrate/PF 100 MCG/2 ML VIAL 25 MCG IVPUSH (10:53)
[2024-09-08] MEDS: Lidocaine HCl 1 % MPF 5 ML VIAL 10 ML SUBCUT (11:49)
== END 2024-09-08 13:33 | disposition home or self-care (01) ==
PROVIDERS: Physician Assistant Surgical; PCP Internal Medicine; Visit Provider Internal Medicine Medical Oncology
DX: C22.8 Malignant neoplasm of liver, primary, unspecified as to type (principal); E83.119 Hemochromatosis, unspecified; Z79.1 Long term (current) use of non-steroidal anti-inflammatories (NSAID)
CPT/HCPCS: 36415; 47000; 76942; 85610; 85730; 86850; 86900; 86901; 88307; 88313; 88341; 88342; 99152; 99153; J0665; J2003; J2250; J2310; J3010

== ENCOUNTER → 2024-09-08 10:06 | Outpatient (BNV) | payer MEDICARE, SELFPAY | PROVIDERS: PCP Internal Medicine; Visit Provider Physician Assistant Surgical | DX: K76.89 Other specified diseases of liver (principal) | CPT/HCPCS: 47000; 76942 ==

== ENCOUNTER 2024-10-05 08:01 | Outpatient (REF) | payer MEDICARE, SELFPAY ==
[2024-10-05 08:15] LABS: MANUAL DIFF FLAG NO
[2024-10-05 08:18] LABS: Basophils Absolute Auto 0.1 X10*3/uL (0.0-0.2); Basophils Percent Auto 1.5 % (0-2); Eosinophils Absolute Auto 0.1 X10*3/uL (0.0-0.4); Eosinophils Percent Auto 2.4 % (0-4); Hematocrit 44.1 % (42.0-52.0); Hemoglobin 14.9 g/dl (14.0-18.0); Imm Gran Abs Auto 0.01 X10*3/uL (0.00-0.03); Imm Gran Pct Auto 0.2 % (0.0-0.4); Lymphocytes Absolute Auto 1.3 X10*3/uL (1.2-4.9); Lymphocytes Percent Auto 24.2 % (20-40); Mean Corpuscular HGB Conc 33.8 g/dl (31.0-36.0); Mean Corpuscular Hemoglobin 32.5 pg (27.0-33.0); Mean Corpuscular Volume 96.1 fL (80.0-98.0); Mean Platelet Volume 9.3 fL (9.4-12.4); Monocytes Absolute Auto 0.5 X10*3/uL (0.1-1.2); Monocytes Percent Auto 9.6 % (2-11); Neutrophils Absolute Auto 3.4 x10*3/uL (2.0-8.3); Neutrophils Percent Auto 62.1 % (45-73); Platelet Count 242 X10*3/uL (160-400); Red Blood Count 4.59 X10*6/uL (4.60-5.80); White Blood Count 5.5 X10*3/uL (4.8-10.8)
[2024-10-05 09:55] LABS: Alanine Aminotransferase 29 U/L (0-40); Albumin Level 4.3 g/dL (3.5-5.0); Alkaline Phosphatase 117 U/L (39-117); Anion Gap 10 (12-20); Aspartate Amino Transferase 33 U/L (5-37); Bilirubin Total 0.4 mg/dL (0.0-1.0); Blood Urea Nitrogen 15 mg/dL (9-16); Calcium 9.6 mg/dL (8.4-10.2); Carbon Dioxide 29 mmol/L (22-29); Chloride 107 mmol/L (96-108); Estimated Glomerular Filt Rate > 60; Glucose Random 83 mg/dL (60-115); Iron 68 mcg/dL (45-160); Percent Iron Saturation 27 % (15-50); Potassium 4.2 mmol/L (3.3-5.1); Sodium 142 mmol/L (135-145); Total Iron Binding Capacity 252 mcg/dL (228-428); Total Protein 6.9 g/dL (6.5-8.0); Unsaturated Iron Binding 184 ug/dL
[2024-10-05 10:18] LABS: Ferritin 21 ng/mL (20-250)
== END 2024-10-05 08:02 | disposition home or self-care (01) ==
LOC: HO.BBR 08:01
PROVIDERS: PCP Internal Medicine; Visit Provider Internal Medicine Medical Oncology
DX: E83.110 Hereditary hemochromatosis (principal)
CPT/HCPCS: 36415; 80053; 82728; 83540; 85025

== ENCOUNTER 2024-11-30 18:13 | Inpatient (IN) | payer MEDICARE, SELFPAY ==
[2024-11-30] VITALS (23 sets, daily range): BP systolic 68–104; BP diastolic 4–70; PULSE 95–133; RESP 16–31; TEMP 37.2–38.2; O2SAT 92–100; BMI 14.8
--- NOTE | ~2024-11-30 | CT_ITS ---
CLINICAL HISTORY: fever, shortness of breath CT chest with contrast Comparison: CT/MI/SR - CT ABDOMEN PELVIS W IV CON - 04/14/24 22:54 EDT Findings: Heart is normal size. No pericardial effusion. No central pulmonary embolism or acute aortic syndrome. No significant coronary artery calcification. The visualized thyroid and mediastinum are unremarkable. Severe centrilobular and preseptal emphysematous changes in both lungs. No focal consolidation. No pleural effusion or pneumothorax. The bones are intact. IMPRESSION: 1. No acute disease. 2. Severe centrilobular and preseptal emphysematous changes in both lungs. No focal consolidation, pleural effusion or pneumothorax. This document has been electronically signed by: Codey Heller MD on 11/30/2024 21:38:43
--- NOTE | ~2024-11-30 | CT_ITS ---
CLINICAL HISTORY: Severe abdominal pain, liver CA, embolization [address] abdomen and pelvis with contrast Comparison: MR/CA/SR - MR ABDOMEN WO/W CON - 06/03/24 08:[address]/CA/SR - CT ABDOMEN PELVIS W IV CON - 04/14/24 22:54 EDT Findings: Severe emphysematous changes of the bilateral lung bases. No focal consolidation. Post embolization changes of the hepatic segment 6 and 7 with multiple locules of air and surrounding parenchymal edema. Large left renal cysts measuring 7 cm. Remainder of the solid organs are unremarkable. No bowel obstruction, pneumoperitoneum, or pneumatosis. Pelvic contents unremarkable. Normal appendix. The bones are intact. IMPRESSION: Post embolization changes of the hepatic segment 6 and 7 with multiple locules of parenchymal air and surrounding edema. Otherwise no acute disease within the abdomen or pelvis. Severe emphysematous changes of the bilateral lung bases. Large left renal cysts measuring 7 cm. This document has been electronically signed by: Codey Heller MD on 11/30/2024 21:28:00
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
--- NOTE | 2024-11-30 18:35 | ECG_ITS ---
Test Reason : SOB Blood Pressure : */* mmHG Vent. Rate : 113 BPM Atrial Rate : 113 BPM P-R Int : 132 ms QRS Dur : 88 ms QT Int : 308 ms P-R-T Axes : 83 102 69 degrees QTcB Int : 422 ms Sinus tachycardia Rightward axis Pulmonary disease pattern Abnormal ECG When compared with ECG of 15-Apr-2024 01:41, Vent. rate has increased by 52 bpm Referred By: Dae Brennan Electronically Signed By: KALI CARRANZA MD
[2024-11-30] MEDS: Albuterol Sulfate 7.5 MG, Albuterol/Iprat 2.5/0.5MG 3 ML 3 ML INHALE (18:39)
[2024-11-30] MEDS: 0.9 % Sodium Chloride 1,360.77 ML 1360.77 ML IV (18:46)
[2024-11-30 18:51] LABS: PLT CLUMP 1; Red Cell Distribution Width 14.1 % (11.0-16.0)
[2024-11-30 18:53] LABS: Hematocrit 47.1 % (42.0-52.0); Hemoglobin 15.9 g/dl (14.0-18.0); Mean Corpuscular HGB Conc 33.8 g/dl (31.0-36.0); Mean Corpuscular Volume 91.8 fL (80.0-98.0); Mean Platelet Volume 10.4 fL (9.4-12.4); Red Blood Count 5.13 X10*6/uL (4.60-5.80)
[2024-11-30 18:53] LABS: Venous Blood Gas Refer to POC result
[2024-11-30 18:54] LABS: VBG Base Excess -4.2 mmol/L; VBG HCO3 18 mmol/L (22-26); VBG pCO2 28 mmHg; VBG pH 7.42 (7.32-7.43); VBG pO2 47 mmHg
[2024-11-30 19:08] LABS: INTERNATIONAL NORM RATIO 1.3 (0.9-1.1); Prothrombin Time 15.1 SEC (10.9-12.4)
[2024-11-30 19:09] LABS: Platelet Count 151 X10*3/uL (160-400); White Blood Count 9.5 X10*3/uL (4.8-10.8)
[2024-11-30 19:10] LABS: Partial Thromboplastin Time 24.8 SEC (26.0-36.8)
[2024-11-30 19:14] LABS: Band Neutrophils Percent 9 % (3-5); Burr Cells 1+ (0-2) /OIF; Eosinophils Absolute Manual 0.1 X10*3/uL (0.0-0.4); Eosinophils Percent Manual 1 % (0-4); Lymphocytes Absolute Manual 0.1 X10*3/uL (1.2-4.9); Lymphocytes Percent Manual 1 % (20-40); Neutrophils Absolute Manual 9.3 X10*3/uL (2.0-8.3); Neutrophils Percent Manual 89 % (45-73); RBC Morphology NOTED; Toxic Vacuolation PRESENT
[2024-11-30 19:15] LABS: Platelet Estimate DECREASED (NORMAL); Platelet Morphology Comment NORMAL; Troponin-I High Sensitivity 4.5 ng/L (<3.5-35.0)
[2024-11-30 19:16] LABS: Alanine Aminotransferase 277 U/L (0-40); Albumin Level 2.9 g/dL (3.5-5.0); Alkaline Phosphatase 685 U/L (39-117); Anion Gap 18 (12-20); Aspartate Amino Transferase 310 U/L (5-37); Bilirubin Total 2.4 mg/dL (0.0-1.0); Blood Urea Nitrogen 23 mg/dL (9-16); Calcium 8.4 mg/dL (8.4-10.2); Carbon Dioxide 19 mmol/L (22-29); Chloride 106 mmol/L (96-108); Creatinine Clr Calc Pharmacy 57.2; Estimated Glomerular Filt Rate > 60; Glucose Random 107 mg/dL (60-115); Lipase 10 U/L (8-78); Magnesium 1.7 mg/dL (1.6-2.6); Sodium 138 mmol/L (135-145); Total Protein 6.1 g/dL (6.5-8.0)
[2024-11-30] MEDS: fentaNYL citrate/PF 100 MCG/2 ML VIAL IVPUSH (19:17)
[2024-11-30] MEDS: Piperacillin Sodium/Tazobactam 4.5 GM in 0.9 % Sodium Chloride 100 ML IV (19:17)
[2024-11-30 19:18] LABS: Lactic Acid 5.4 mmol/L (0.5-2.0)
--- NOTE | 2024-11-30 19:33 | PC.NURSE ---
Assumed care of patient at 1845. Patient is alert and oriented x4, on BIPAP 50%, 20. RR 28, O2 Sat 96-98%. Patient medicated with Fentanyl 100 mcg IV for 7/10 parker in RUQ, tolerated well Plan for CT scan of abdomen and pelvis and chest.
--- NOTE | 2024-11-30 19:39 | PC.NURSE ---
BIPAP setting 50%, 10/5 at resent, O2 Sat stable 96-98%.
[2024-11-30] MEDS: iohexoL 350 MG/ML 100 ML INFUS..BTL 85 ML IV (20:12)
--- NOTE | 2024-11-30 20:14 | PC.NURSE ---
CT scan completed, patient back to room 4. Patient tolerated CT scan well, RT decreased BIPAP setting to 40% 06/13, O2 Sat stable 96-97%.
[2024-11-30 20:23] LABS: Influenza A PCR NEGATIVE (Negative); Influenza B PCR NEGATIVE (Negative); Resp Syncy Virus RNA Qual PCR NEGATIVE (Negative); SARS COV2 PCR INHOUSE NEGATIVE (Negative)
[2024-11-30 20:47] LABS: Reflex Lactate? Lactic Acid Added
[2024-11-30] MEDS: Lactated Ringers 1,000 ML 999 ML IV (21:19)
--- NOTE | 2024-11-30 21:29 | PC.NURSE ---
BP 78-83/51-55, HR 99-108. Dr Brennan notified, LR 1 L started and infusing, per MD continue to monitor BP's, notify MD if BP no improvement in BP's after 1 L of LR infused.
--- NOTE | 2024-11-30 21:42 | PC.NURSE ---
1 L of LR infused BP 79/52, HR 100. Dr. Brennan notified, new order obtained for Levophed IV.
[2024-11-30] MEDS: Norepinephrine Bitartrate/D5W 8 MG/250 ML PLAST..BAG 4.25 MG IVCONT (21:48)
--- NOTE | 2024-11-30 21:56 | PC.NURSE ---
Levophed titrated to 0.07 mg/kg/min for BP 68/47, P 101.
--- NOTE | 2024-11-30 21:59 | PC.NURSE ---
Levophed titrated to 0.09 mg/kg/min for BP 80/59 MAP 65, P 101.
--- NOTE | 2024-11-30 22:04 | PC.NURSE ---
BP 94/58, MAP 70, P 101, Levophed running at 0.09 mg/kg/hr, no titration increase indicated at this time d/t MAP 70.
[2024-11-30 22:29] LABS: ~Lactic Acid-LAB USE ONLY 3.6 mmol/L (0.5-2.0)
[2024-11-30] MEDS: cefEPime HCl/D5W 2 GM/50 ML PIGGYBACK IV (22:54)
[2024-11-30] MEDS: Albumin Human 25 % 100 ML 133.33 ML IV (23:03)
[2024-11-30] MEDS: methylPREDNISolone Sod Succ 125 MG/2 ML VIAL IVPUSH (23:06)
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
--- NOTE | 2024-11-30 23:17 | PC.NURSE ---
Patient refused F/C insertion, [place] catheter applied per patient's request.
[2024-11-30 23:21] LABS: Hematocrit 39.6 % (42.0-52.0); Hemoglobin 13.2 g/dl (14.0-18.0); Mean Corpuscular HGB Conc 33.3 g/dl (31.0-36.0); Mean Platelet Volume 10.9 fL (9.4-12.4); Platelet Count 135 X10*3/uL (160-400); Red Blood Count 4.26 X10*6/uL (4.60-5.80); Red Cell Distribution Width 14.3 % (11.0-16.0)
[2024-11-30 23:22] LABS: Appearance Urine Cloudy; Color Urine Yellow; Glucose Urine UA Negative (Negative); Leukocyte Esterase Urine Moderate (2+) (Negative); Nitrite Urine Positive (Negative); PH 6.5 (5.0-9.0); Specific Gravity - Urine >= 1.030 (1.005-1.025); UMIC TRIGGER UACC YES; Urine Blood Moderate (2+) (Negative); Urine Ketones Negative (Negative); Urine Protein 100 (2+) mg/dL (Neg-Trace)
[2024-11-30 23:38] LABS: Anion Gap 14 (12-20); Bacteria Urine Trace (None Seen); Granular Casts Urine Present; Hyaline Casts Urine 0-2 /LPF (0-2); Squamous Epithelial Cell Urine 0-2 /HPF (0-2); UACC Culture Trigger YES; WBC Urine >50 /HPF (0-5)
[2024-11-30 23:39] LABS: WBC ABN SCTR FOR CBC 1
[2024-11-30 23:40] LABS: Alanine Aminotransferase 202 U/L (0-40); Albumin Level 2.3 g/dL (3.5-5.0); Alkaline Phosphatase 306 U/L (39-117); Aspartate Amino Transferase 159 U/L (5-37); Bilirubin Total 2.3 mg/dL (0.0-1.0); Blood Urea Nitrogen 28 mg/dL (9-16); Calcium 6.9 mg/dL (8.4-10.2); Carbon Dioxide 19 mmol/L (22-29); Chloride 103 mmol/L (96-108); Creatinine Clr Calc Pharmacy 41.2; Estimated Glomerular Filt Rate > 60; Glucose Random 328 mg/dL (60-115); Magnesium 1.5 mg/dL (1.6-2.6); Phosphorus 2.6 mg/dL (2.7-4.5); Sodium 132 mmol/L (135-145); Total Protein 4.5 g/dL (6.5-8.0)
[2024-11-30] MEDS: Lactated Ringers 1,000 ML 100 ML IVCONT (23:41)
[2024-11-30 23:42] LABS: White Blood Count 31.7 X10*3/uL (4.8-10.8)
[2024-11-30 23:47] LABS: Band Neutrophils Percent 10 % (3-5); Lymphocytes Absolute Manual 0.3 X10*3/uL (1.2-4.9); Lymphocytes Percent Manual 1 % (20-40); Neutrophils Absolute Manual 31.4 X10*3/uL (2.0-8.3); Neutrophils Percent Manual 89 % (45-73)
[2024-11-30] MEDS: Heparin Sodium,Porcine 5,000 UNIT/ML VIAL 5000 UNIT SUBCUT (23:48)
[2024-11-30 23:49] LABS: Burr Cells 1+ (0-2) /OIF; Dohle Bodies PRESENT; Platelet Estimate DECREASED (NORMAL); Platelet Morphology Comment NOTED; RBC Morphology NOTED; Toxic Vacuolation PRESENT
[2024-11-30 23:50] LABS: Large Platelet PRESENT
[2024-11-30 23:55] LABS: B Type Natriuretic Peptide 107 pg/mL (<100)
[2024-12-01] VITALS (42 sets, daily range): BP systolic 81–116; BP diastolic 50–78; PULSE 70–94; RESP 12–30; TEMP 36–36.8; O2SAT 95–100; BMI 15.6; BMI 16.0
[2024-12-01 00:10] LABS: Reflex Lactate? 2 Y
[2024-12-01] MEDS: Albumin Human 25 % 100 ML 133.33 ML IV ×3 (00:27→13:19)
[2024-12-01] MEDS: Magnesium Sulfate/H2O 2 GM/50 ML PIGGYBACK IV (00:29)
[2024-12-01] MEDS: Calcium Gluconate/NaCl,Iso-Osm 1 GM/50 ML PLAST..BAG IV (00:29)
[2024-12-01] MEDS: Albuterol/Iprat 2.5/0.5MG 3 ML AMPUL.NEB INHALE ×5 (00:41→23:55)
[2024-12-01 00:47] LABS: Glucose, Whole Blood 122 mg/dL (60-115)
[2024-12-01 00:52] LABS: VBG Base Excess -3.7 mmol/L; VBG HCO3 18 mmol/L (22-26); VBG pCO2 24 mmHg; VBG pH 7.47 (7.32-7.43); VBG pO2 65 mmHg
[2024-12-01 01:13] LABS: ~Lactic Acid-LAB USE ONLY 2.9 mmol/L (0.5-2.0)
[2024-12-01 01:31] LABS: Venous Blood Gas Refer to POC result
[2024-12-01] MEDS: Mag&Al/Sim/Diphenhyd/Lidocaine 10 ML ORAL.SUSP PO (02:12)
[2024-12-01 05:01] LABS: VBG Base Excess -4.4 mmol/L; VBG HCO3 18 mmol/L (22-26); VBG pCO2 28 mmHg; VBG pH 7.42 (7.32-7.43); VBG pO2 46 mmHg
[2024-12-01 05:07] LABS: Venous Blood Gas Refer to POC result
[2024-12-01 05:14] LABS: Hematocrit 34.4 % (42.0-52.0); Hemoglobin 11.6 g/dl (14.0-18.0); Mean Corpuscular HGB Conc 33.7 g/dl (31.0-36.0); Mean Corpuscular Hemoglobin 30.9 pg (27.0-33.0); Mean Corpuscular Volume 91.5 fL (80.0-98.0); Mean Platelet Volume 11.4 fL (9.4-12.4); Platelet Count 130 X10*3/uL (160-400); Red Blood Count 3.76 X10*6/uL (4.60-5.80); Red Cell Distribution Width 14.3 % (11.0-16.0)
[2024-12-01 05:24] LABS: WBC ABN SCTR FOR CBC 1
[2024-12-01 05:26] LABS: White Blood Count 40.2 X10*3/uL (4.8-10.8)
[2024-12-01 05:34] LABS: Alanine Aminotransferase 217 U/L (0-40); Albumin Level 3.2 g/dL (3.5-5.0); Anion Gap 16 (12-20); Aspartate Amino Transferase 195 U/L (5-37); Band Neutrophils Percent 14 % (3-5); Bilirubin Total 2.5 mg/dL (0.0-1.0); Blood Urea Nitrogen 25 mg/dL (9-16); Calcium 7.8 mg/dL (8.4-10.2); Carbon Dioxide 18 mmol/L (22-29); Chloride 107 mmol/L (96-108); Creatinine Clr Calc Pharmacy 52.2; Estimated Glomerular Filt Rate > 60; Glucose Random 244 mg/dL (60-115); Lymphocytes Absolute Manual 0.8 X10*3/uL (1.2-4.9); Lymphocytes Percent Manual 2 % (20-40); Magnesium 2.3 mg/dL (1.6-2.6); Neutrophils Absolute Manual 39.4 X10*3/uL (2.0-8.3); Neutrophils Percent Manual 84 % (45-73); Phosphorus 4.1 mg/dL (2.7-4.5); Potassium 4.1 mmol/L (3.3-5.1); RBC Morphology NOTED; Sodium 137 mmol/L (135-145); Total Protein 5.3 g/dL (6.5-8.0)
[2024-12-01 05:35] LABS: Burr Cells 2+ (3-5) /OIF; Dohle Bodies PRESENT; Ovalocytes 1+ (5-14) /OIF; Platelet Estimate DECREASED (NORMAL); Toxic Vacuolation PRESENT
[2024-12-01 05:36] LABS: Large Platelet PRESENT; Platelet Morphology Comment NOTED; Schistocytes 1+ (0-2) /OIF
[2024-12-01 05:44] LABS: Alkaline Phosphatase 258 U/L (39-117)
[2024-12-01] MEDS: methylPREDNISolone Sod Succ 40 MG/ML VIAL IVPUSH ×3 (05:56→22:39)
[2024-12-01] MEDS: Pantoprazole Sodium 40 MG/10 ML VIAL IVPUSH (05:56)
[2024-12-01] MEDS: Insulin Lispro 100 UNIT/ML 3 ML VIAL SUBCUT ×4 (05:56→21:14)
--- NOTE | 2024-12-01 06:28 | PC.NURSE ---
Addendum entered by Annabelle Berry RN 12/01/24 06:45: 06:43: Lab called with critical results of blood cultures 2/2 sets positive for gram negative rods. GO Hernandez made aware. Handoff report given to oncoming RN. Original Note: Patient admitted to the ICU from ED, arrived at approximately 00:05 due to requiring levophed and rescue bipap. Neutropenic precautions in place, pt s/p recent chmo-embolectomy at [facility] on 11/26/24 per chart review. Patient arrived on bipap 10//35%, tolerating well with spo2 >95%. Co2 retainer protocol ordered (hx copd, asthma, former heavy smoker) with spo2 goal 88-92%. ABG was initially ordered by GO Hernandez, though sample proved difficult to obtain despite attempts by RT and PA. VBG obtained instead per PA verbal order. Fio2 reduced shortly after arrival by RT to 28%. Pt continues to tolerate well. Levophed infusing at 0.09mcg/kg/hr on arrival, via peripheral IV with good blood return (PA aware infusing via PIV). Titrated per MAR for map goal >65. NSR on tele. Pt is A&Ox4, easily arousable to voice. Patient denies chest pain, sob, n/v. Breathing is even and unlabored without distress. NPO while on bipap. Q6hr POCs as ordered. Mepilex dressing applied to nasal bridge for skin integrity. Triad and foam applied to blanchable redness on coccyx. Q2hr repositioning provided. Pt continues on air loss repositioning bed. PO care provided. Pt c/o mouth sores. White spots are visualized around the outer perimeter of tongue. PA notified with orders for magic mouth wash, administered with +effect per pt. [place] catheter in place as pt declined leyva catheter, patent of concentrated cyu. Lactic repeat back early this morning 2.9, improved from previous trends. PA notified. Continuous LR infusing, albumin and electrolyte repletions administered per MAR. Critical WBC back this morning 40.2. PA notified. No new orders at this time. Please see admission/shift assessments, tasks, and MAR for full details. Plan of care continues.
--- NOTE | 2024-12-01 06:39 | HO.SKINPHOTO ---
Location: [facility] PH[facility]
--- NOTE | 2024-12-01 08:18 | PHA.MEDREC ---
Addendum entered by Annette Joy [facility] 12/01/24 08:26: reviewed Original Note: Pharmacy Consult ? Medication Reconciliation Pharmacy has completed the medication reconciliation. Spoke with patient and he was able to confirm his medications. Patient confirmed he took a Tramadol 50mg tab before coming in.
[2024-12-01] MEDS: Lactated Ringers 1,000 ML 100 ML IVCONT ×2 (08:25→17:30)
[2024-12-01] MEDS: Heparin Sodium,Porcine 5,000 UNIT/ML VIAL 5000 UNIT SUBCUT ×2 (10:26→22:39)
[2024-12-01] MEDS: cefEPime HCl/D5W 2 GM/50 ML PIGGYBACK IV ×2 (10:26→21:16)
--- NOTE | 2024-12-01 10:34 | MHC.CLN ---
RE: CONSULT PT IS MODERATELY MALNOURISHED PT WITH MILDLY DEPLETED SUBCUTANEOUS FAT AND MUSCLE MASS WITH BMI 16 AND 7% NONSIGNIFICANT WT LOSS X 1 YEAR DISCUSSED AT ROUNDS WITH MD DIET ADVANCED TO REGULAR NEUTROPENIC RECOMMEND ADDING ENSURE BID TO INCREASE KCALS SUPPLEMENT TO PROVIDE 700KCALS, 40G PROTEIN MONITOR PO INTAKE AND ENCOURAGE SUPPLEMENT SEE FULL CLINICAL NUTRITION ASSESSMENT
[2024-12-01] MEDS: Midodrine HCl 10 MG TABLET PO ×2 (13:17→21:15)
[2024-12-01 13:18] LABS: Glucose, Whole Blood 188 mg/dL (60-115)
--- NOTE | 2024-12-01 13:45 | MHC.CM.PN ---
Pt in ICU on BiPAP: call placed to HCP/spouse Francisca who states pt is independent with all care needs at baseline and has no services or DME. His PCP is Dr. Gamino. She provides transportation for pt and assists as needed. Discussed d/c planning: Francisca states pt will want to return to home: She is receptive to VNA services but states to discuss w/pt once he is medically stable. Francisca to transport pt to home. IMM in chart: CM to f/u w/ pt re: VNA referral.
[2024-12-01] MEDS: Lactated Ringers 1,000 ML 999 ML IV (14:52)
[2024-12-01 18:01] LABS: Glucose, Whole Blood 210 mg/dL (60-115)
[2024-12-01] MEDS: traMADoL HCL 50 MG TABLET PO (18:34)
--- NOTE | 2024-12-01 19:00 | PC.NURSE ---
Neuro: Patient alert and oriented x4, not on sedation, follows commands, calm and alert? Resp: On bipap this morning 06/13, switched to NC 1L and transitioned to RA, O2 sat 97%? Cardiac:Levophed titrated down this morning unable to tolerated and increased to protocol, BP still low and LR bolus ordered and given with improved BP, see MAR for full details. GI/: [place] catheter in place draining muna urine, diet changed to Regular diet and tolerating well Integumentary/Musculoskeletal: [place] foam to coccyx for blanchable redness.? Psychosocial (family etc.): at bedside this AM Infectious Disease: on Neutropenic precautions.?
[2024-12-01] MEDS: Gabapentin 100 MG CAPSULE PO (23:06)
[2024-12-02] VITALS (25 sets, daily range): BP systolic 94–129; BP diastolic 62–86; PULSE 8–86; RESP 16–32; TEMP 36.4–36.8; O2SAT 94–98; BMI 14.4
[2024-12-02] MEDS: Calcium Carbonate 750 MG TAB.CHEW PO (00:24)
[2024-12-02] MEDS: traMADoL HCL 50 MG TABLET PO ×3 (02:55→22:54)
[2024-12-02] MEDS: Lactated Ringers 1,000 ML 100 ML IVCONT ×3 (03:05→22:22)
[2024-12-02] MEDS: Norepinephrine Bitartrate/D5W 8 MG/250 ML PLAST..BAG 4.25 MG IVCONT (03:06)
[2024-12-02 04:50] LABS: Glucose, Whole Blood 164 mg/dL (60-115)
[2024-12-02 05:14] LABS: Hematocrit 32.7 % (42.0-52.0); Hemoglobin 11.2 g/dl (14.0-18.0); Mean Corpuscular HGB Conc 34.3 g/dl (31.0-36.0); Mean Corpuscular Hemoglobin 31.3 pg (27.0-33.0); Mean Corpuscular Volume 91.3 fL (80.0-98.0); Mean Platelet Volume 11.3 fL (9.4-12.4); Platelet Count 158 X10*3/uL (160-400); Red Blood Count 3.58 X10*6/uL (4.60-5.80); Red Cell Distribution Width 14.3 % (11.0-16.0)
[2024-12-02 05:15] LABS: VBG Base Excess -1.4 mmol/L; VBG HCO3 21 mmol/L (22-26); VBG pCO2 30 mmHg; VBG pH 7.45 (7.32-7.43); VBG pO2 37 mmHg
[2024-12-02 05:22] LABS: WBC ABN SCTR FOR CBC 1
[2024-12-02 05:22] LABS: Venous Blood Gas Refer to POC result
[2024-12-02 05:24] LABS: White Blood Count 30.6 X10*3/uL (4.8-10.8)
[2024-12-02] MEDS: Albuterol/Iprat 2.5/0.5MG 3 ML AMPUL.NEB INHALE (05:28)
[2024-12-02 05:33] LABS: Alanine Aminotransferase 192 U/L (0-40); Albumin Level 3.6 g/dL (3.5-5.0); Anion Gap 13 (12-20); Aspartate Amino Transferase 122 U/L (5-37); Bilirubin Total 1.1 mg/dL (0.0-1.0); Blood Urea Nitrogen 30 mg/dL (9-16); Calcium 8.1 mg/dL (8.4-10.2); Carbon Dioxide 20 mmol/L (22-29); Chloride 110 mmol/L (96-108); Creatinine Clr Calc Pharmacy 62.8; Estimated Glomerular Filt Rate > 60; Glucose Random 215 mg/dL (60-115); Magnesium 2.2 mg/dL (1.6-2.6); Phosphorus 2.1 mg/dL (2.7-4.5); Potassium 3.8 mmol/L (3.3-5.1); Sodium 139 mmol/L (135-145); Total Protein 5.6 g/dL (6.5-8.0)
[2024-12-02 05:37] LABS: Alkaline Phosphatase 262 U/L (39-117)
[2024-12-02 05:41] LABS: Band Neutrophils Percent 5 % (3-5); Lymphocytes Absolute Manual 1.2 X10*3/uL (1.2-4.9); Lymphocytes Percent Manual 4 % (20-40); Monocytes Absolute Manual 0.3 X10*3/uL (0.1-1.2); Monocytes Percent Manual 1 % (2-11); Neutrophils Absolute Manual 29.1 X10*3/uL (2.0-8.3); Neutrophils Percent Manual 90 % (45-73)
[2024-12-02 05:43] LABS: Dohle Bodies PRESENT; RBC Morphology NOTED; Toxic Granulation PRESENT
[2024-12-02 05:44] LABS: Burr Cells 2+ (3-5) /OIF; Ovalocytes 1+ (5-14) /OIF; Platelet Estimate SLIGHTLY DECREASED (NORMAL)
[2024-12-02 05:45] LABS: Large Platelet PRESENT; Platelet Morphology Comment NOTED
[2024-12-02] MEDS: methylPREDNISolone Sod Succ 40 MG/ML VIAL IVPUSH (05:52)
[2024-12-02] MEDS: Pantoprazole Sodium 40 MG/10 ML VIAL IVPUSH (05:52)
--- NOTE | 2024-12-02 06:15 | P.CDIM_ITS ---
PROVIDER RESPONSE TEXT: To clarify, the appropriate diagnosis supported by the clinical indicators: Malnourished: mild to mod QUERY TEXT: PHYSICIAN'S DOCUMENTATION REQUEST Date of Query: 12/01/2024 11:01 AM EDT Patient Name: Tor Albright Admit Date: 12/01/2024 Dear Inocencio STILES, A review of the medical record indicates additional documentation may be needed. Please review below and update the documentation accordingly. Clinical Indicators: Height: 5ft 8in Weight: 47.8kg BMI: 16.0 Other Clinical Notes Supporting Significance of the BMI: Nutrition notes moderately malnourished with BMI 16.0 Underweight with mildly depleted subcutaneous fat and muscle mass - 7% nonsignificant wt loss x 1 yea r. Adding Ensure BID to increase KCALS. If possible, please provide an associated diagnosis related to the abnormal BMI, such as: Underweight Malnourished mild, moderate, severe Cachexia Anorexia Other (explain) Clinically unable to determine (explain) Thank you, Muriel Yen, CCS, CDIS Use of terms such as suspected, likely, concern for, or probable (associated with a specific diagnosi s that is being evaluated, monitored, or treated as if it exists) are acceptable and can be coded in the inpatient se tting, when documented at the time of discharge. Please use your independent medical judgment in providing your response. THIS QUERY IS PART OF THE PERMANENT MEDICAL RECORD
[2024-12-02] MEDS: Insulin Lispro 100 UNIT/ML 3 ML VIAL SUBCUT (07:42)
[2024-12-02 07:56] LABS: Glucose, Whole Blood 210 mg/dL (60-115)
--- NOTE | 2024-12-02 08:55 | P.PNCC_ITS ---
Subjective Subjective Date of Service: 12/02/24 Interval History: Overall clinical condition improving. Patient feels better Still on low-dose vasopressor support Critical Care Time (minutes): 35 Physical Exam 2 Vital Signs: Vital Signs: Last Vital Signs Temp 97.5 F 12/02/24 08:00 Pulse 85 12/02/24 08:00 Resp 22 H 12/02/24 08:00 BP 95/62 12/02/24 08:00 Pulse Ox 98 12/02/24 08:00 O2 Del Method Room Air 12/02/24 08:00 O2 Flow Rate 1 12/01/24 15:00 FiO2 28 12/01/24 09:00 BMI result Body Mass Index 14.4 General: emaciated elderly male in mild distress sitting in the bed comfortably Nutritional Appearance: Poorly nourished and under weight Eyes: appearance normal, both eyes and all related structures; Alignment and Position: alignment normal and position normal Neck: No lymphadenopathy, no thyromegaly Resp: bilateral air entry equal, occasional wheeze heard bilaterally Cardio: Regular rate, regular rhythm; Heart sounds: S1 normal heart sound present and S2 normal heart sound present GI: soft, nontender, no guarding, no hepatosplenomegaly : bladder normal to inspection, bladder normal to palpation, no renal angle tenderness Skin: no rashes or lesions noted and elasticity normal Neuro: oriented to person, oriented to place, oriented to time and moves all extremities Objective Data Labs 12/02/24 04:58 12/02/24 04:59 Labs: Laboratory Results - last 24 hr 12/01/24 12/01/24 12/01/24 12:15 17:17 20:54 WBC RBC Hgb Hct MCV MCH MCHC RDW Plt Count MPV Immature Gran % (Auto) Neut % (Auto) Lymph % (Auto) [place] % (Auto) Eos % (Auto) Baso % (Auto) Lymph # (Auto) [place] # (Auto) Eos # (Auto) Baso # (Auto) Abs Immat Gran (auto) Absolute Neuts (auto) Absolute Nucleated RBC Nucleated RBC % (auto) Neutrophils % (Manual) Band Neutrophils % Lymphocytes % (Manual) Monocytes % (Manual) Abs Neuts (Manual) Lymphocytes # (Manual) Monocytes # (Manual) Toxic Granulation Dohle Bodies Platelet Estimate Large Platelets Plt Morphology Comment RBC Morphology Ovalocytes Gordon Cells VBG pH VBG pCO2 VBG pO2 VBG HCO3 VBG O2 Saturation VBG Base Excess Sodium Potassium Chloride Carbon Dioxide Anion Gap BUN Creatinine Estim Creat Clear Calc Estimated GFR POC Glucose 188 H 210 H 164 H Random Glucose Calcium Phosphorus Magnesium Total Bilirubin AST ALT Alkaline Phosphatase Total Protein Albumin 12/02/24 12/02/24 12/02/24 04:58 04:59 05:01 WBC 30.6 H* RBC 3.58 L Hgb 11.2 L Hct 32.7 L MCV 91.3 MCH 31.3 MCHC 34.3 RDW 14.3 Plt Count 158 L MPV 11.3 Immature Gran % (Auto) Cancelled Neut % (Auto) Cancelled Lymph % (Auto) Cancelled [place] % (Auto) Cancelled Eos % (Auto) Cancelled Baso % (Auto) Cancelled Lymph # (Auto) Cancelled [place] # (Auto) Cancelled Eos # (Auto) Cancelled Baso # (Auto) Cancelled Abs Immat Gran (auto) Cancelled Absolute Neuts (auto) Cancelled Absolute Nucleated RBC 0.000 Nucleated RBC % (auto) 0.0 Neutrophils % (Manual) 90 H Band Neutrophils % 5 Lymphocytes % (Manual) 4 L Monocytes % (Manual) 1 L Abs Neuts (Manual) 29.1 H Lymphocytes # (Manual) 1.2 Monocytes # (Manual) 0.3 Toxic Granulation PRESENT Dohle Bodies PRESENT Platelet Estimate SLIGHTLY DECREASED Large Platelets PRESENT Plt Morphology Comment NOTED RBC Morphology NOTED Ovalocytes 1+ (5-14) Gordon Cells 2+ (3-5) VBG pH 7.45 H VBG pCO2 30 VBG pO2 37 VBG HCO3 21 L VBG O2 Saturation 59.0 VBG Base Excess -1.4 Sodium 139 Potassium 3.8 Chloride 110 H Carbon Dioxide 20 L Anion Gap 13 BUN 30 H Creatinine 0.74 Estim Creat Clear Calc 62.8 Estimated GFR > 60 POC Glucose Random Glucose 215 H Calcium 8.1 L Phosphorus 2.1 L Magnesium 2.2 Total Bilirubin 1.1 H AST 122 H ALT 192 H Alkaline Phosphatase 262 H Total Protein 5.6 L Albumin 3.6 12/02/24 07:31 WBC RBC Hgb Hct MCV MCH MCHC RDW Plt Count MPV Immature Gran % (Auto) Neut % (Auto) Lymph % (Auto) [place] % (Auto) Eos % (Auto) Baso % (Auto) Lymph # (Auto) [place] # (Auto) Eos # (Auto) Baso # (Auto) Abs Immat Gran (auto) Absolute Neuts (auto) Absolute Nucleated RBC Nucleated RBC % (auto) Neutrophils % (Manual) Band Neutrophils % Lymphocytes % (Manual) Monocytes % (Manual) Abs Neuts (Manual) Lymphocytes # (Manual) Monocytes # (Manual) Toxic Granulation Dohle Bodies Platelet Estimate Large Platelets Plt Morphology Comment RBC Morphology Ovalocytes [place] Cells VBG pH VBG pCO2 VBG pO2 VBG HCO3 VBG O2 Saturation VBG Base Excess Sodium Potassium Chloride Carbon Dioxide Anion Gap BUN Creatinine Estim Creat Clear Calc Estimated GFR POC Glucose 210 H Random Glucose Calcium Phosphorus Magnesium Total Bilirubin AST ALT Alkaline Phosphatase Total Protein Albumin Microbiology Microbiology Results: Microbiology 11/30/24 18:42 Blood - Venous Blood Culture - Preliminary Prelim: GNR Gram Stain only 11/30/24 18:42 Blood - Venous Blood Culture - Preliminary Prelim: GNR Gram Stain only Progress Note: A&P Assessment and plan (1) Hypotension: Status: Acute (2) Adrenal nodule: Status: Acute (3) Underweight: Status: Acute (4) Liver mass: Status: Acute (5) Abdominal pain: Status: Acute (6) Cancer of liver: Status: Acute (7) Asthma-COPD overlap syndrome: Status: Acute (8) Pulmonary nodule: Status: Acute (9) Respiratory failure: Status: Acute Plan Septic shock: Secondary to urinary tract infection On Levophed support, titrate to keep the map above 65 mm Hg. Also on midodrine 10 mg TID. Urine nitrate positive, blood cultures growing Gram-negative rods final speciation pending. Continue cefepime. COPD: Not on home oxygen or any assistive device Currently stable does not require any additional support Bronchodilators as needed, solumedrol discontinued Hepatoma: Status post chemoembolization on 11/26/2024 at [facility] has underlying hemochromatosis, hepatitis B and C Transaminitis is stable or slightly improving Leukocytosis: Secondary to sepsis, is currently improving WBC count down to 30k from 40k yesterday Non-anion gap metabolic acidosis: Possibly due to normal saline infusion Bicarb 20, we will continue to monitor Acute Hypophosphatemia: Secondary to poor nutrition Chronic malnutrition: We will improve nutrition as tolerated Acute hypocalcemia: Reveal replete as per protocol prophylaxis: lovenox, pantoprazole Quality Stroke Does the patient have a stroke diagnosis?: No VTE Prior VTE?: No VTE Risk Level:: Medical - moderate - high VTE Device Contraindication: N/A - Device Ordered VTE Drug Contraindication: N/A - Med Ordered
--- NOTE | 2024-12-02 09:56 | MHC.CM.PN ---
Pt conversant, feeling better and will transfer to the medical floor later today. Pt interested in VNA services upon return to home: referred to [facility] and currently awaiting a response.
[2024-12-02] MEDS: Enoxaparin Sodium 30 MG/0.3 ML SYRINGE SUBCUT (10:35)
[2024-12-02] MEDS: cefEPime HCl/D5W 2 GM/50 ML PIGGYBACK IV ×2 (10:37→22:21)
[2024-12-02] MEDS: Midodrine HCl 10 MG TABLET PO ×3 (10:37→22:31)
[2024-12-02] MEDS: Sodium,Potassium Phosphates POWD.PACK 2 PACKET PO ×2 (10:37→22:22)
--- NOTE | 2024-12-02 10:50 | MHC.CLN ---
F/U PT IS MODERATELY MALNOURISHED SEE CLINICAL NUTRITION ASSESSMENT DATED 12/01/24 DISCUSSED AT ROUNDS WITH MD NURSING REPORTS PT EATING WELL DIET RX: REGULAR NEUTROPENIC RECEIVING ADDING ENSURE BID TO INCREASE KCALS SUPPLEMENT TO PROVIDE 700KCALS, 40G PROTEIN ADDING MAGIC CUP WITH MEALS TO INCREASE KCALS AND PROMOTE WT GAIN MONITOR PO INTAKE AND ENCOURAGE SUPPLEMENT
[2024-12-02 11:47] LABS: Glucose, Whole Blood 150 mg/dL (60-115)
--- NOTE | 2024-12-02 14:39 | MHC.CM.PN ---
Pt doing well - Levophed d/c'd: pt will likely transfer to medical floor later today: D/C planning needs assessed - pt agreeable to NA referral for skilled RN and HOUSING COORDINATOR visits. Accepted by agency for service. Spouse to transport. CM to follow
--- NOTE | 2024-12-02 18:02 | PM.EVENT ---
Event Note Date of Service: 12/02/24 Event Note: hospital d3 for 69yo M with HCC who underwent chemo-embolization at [facility] [place] 11/26/24, prior HBV + HCV, hemochromatosis, liver fibrosis, hx colectomy for ischemic bowel, asthma-COPD syndrome admitted to the ICU with septic shock due to GNR bacteremia and acute hypoxic respiratory failure due to COPD exacerbation. He was weaned off BiPAP yesterday and has been on room air all day. He was on norepinephrine that was discontinued at 9am today. He feels well except he gets winded with any activity and complains of constipation. BCx x2 growing GNRs, speciation pending. Labs show WBC 30.6, Hb 11.2, plts 158 SCr 0.74, AST 122, ALT 192 PO4 2.1 septic shock due to GNR bacteremia - off norepinephrine support; continue cefepime 11/30-, follow BCx/UCx. Also on midodrine. COPD-asthma overlap with acute exac - methylprednisolone -> prednisone, bronchodilators hepatoma - s/p chemoembolization 11/26 - transamaminases slightly improving NAGMA - due to NS, improving hypoPO4 - replete moderate pr-carrington malnutrition - supplements VTE ppx - enoxaparin dispo - TBD In my clinical judgment, the patient requires continued inpatient hospitalization for the following reasons: IV ABX Time Spent With Patient Time: Total time managing care of this patient today ____ minutes.
[2024-12-02] MEDS: predniSONE 20 MG TABLET 40 MG PO (19:12)
[2024-12-02] MEDS: polyethylene glycoL 3350 17 GM POWD.PACK PO (19:13)
[2024-12-02] MEDS: HYDROmorphone HCl 0.5 MG/0.5 ML SYRINGE IVPUSH (19:13)
--- NOTE | 2024-12-02 19:24 | PC.NURSE ---
Neuro: Patient alert and oriented x4, not on sedation, follows commands, calm and alert? Resp: On RA, O2 sat 96-98%? Cardiac:Levophed titrated down this morning, able to stop and BP 110?s/70?s GI/: [place] catheter removed and using urinal this evening, tolerating regular diet well.? Integumentary/Musculoskeletal: [place] foam to coccyx for blanchable redness, removed and maintained off patient OOB to chair and pivots to commode.? Psychosocial (family etc.): at bedside this AM Infectious Disease: on Neutropenic precautions for recent chemo administration.? Transferred to Med/Tele this evening, report given to med/tele nurse.
[2024-12-03] VITALS (10 sets, daily range): BP systolic 112–147; BP diastolic 76–97; PULSE 65–78; RESP 16–19; TEMP 36.4–37.2; O2SAT 93–99
[2024-12-03] MEDS: Albuterol/Iprat 2.5/0.5MG 3 ML AMPUL.NEB INHALE (00:12)
[2024-12-03 04:22] LABS: Glucose, Whole Blood 127 mg/dL (60-115)
[2024-12-03 04:22] LABS: Glucose, Whole Blood 120 mg/dL (60-115)
[2024-12-03 04:22] LABS: Glucose, Whole Blood 199 mg/dL (60-115)
[2024-12-03] MEDS: Omeprazole 20 MG CAPSULE.DR PO (04:58)
[2024-12-03 08:10] LABS: Glucose, Whole Blood 136 mg/dL (60-115)
[2024-12-03] MEDS: Enoxaparin Sodium 30 MG/0.3 ML SYRINGE SUBCUT (08:24)
[2024-12-03] MEDS: polyethylene glycoL 3350 17 GM POWD.PACK PO (08:25)
[2024-12-03] MEDS: predniSONE 20 MG TABLET 40 MG PO (08:25)
[2024-12-03] MEDS: Midodrine HCl 5 MG TABLET PO ×2 (08:25→14:42)
[2024-12-03] MEDS: traMADoL HCL 50 MG TABLET PO ×2 (08:25→19:54)
[2024-12-03] MEDS: cefEPime HCl/D5W 2 GM/50 ML PIGGYBACK IV ×2 (08:26→19:54)
[2024-12-03 09:09] LABS: Hematocrit 36.8 % (42.0-52.0); Hemoglobin 12.8 g/dl (14.0-18.0); Mean Corpuscular HGB Conc 34.8 g/dl (31.0-36.0); Mean Corpuscular Hemoglobin 31.8 pg (27.0-33.0); Mean Corpuscular Volume 91.5 fL (80.0-98.0); Platelet Count 201 X10*3/uL (160-400); Red Blood Count 4.02 X10*6/uL (4.60-5.80); Red Cell Distribution Width 14.4 % (11.0-16.0); White Blood Count 19.2 X10*3/uL (4.8-10.8)
[2024-12-03 09:25] LABS: INTERNATIONAL NORM RATIO 1.2 (0.9-1.1)
[2024-12-03 09:29] LABS: Alanine Aminotransferase 168 U/L (0-40); Albumin Level 3.6 g/dL (3.5-5.0); Alkaline Phosphatase 254 U/L (39-117); Anion Gap 10 (12-20); Aspartate Amino Transferase 67 U/L (5-37); Bilirubin Total 1.2 mg/dL (0.0-1.0); Blood Urea Nitrogen 28 mg/dL (9-16); Calcium 8.3 mg/dL (8.4-10.2); Carbon Dioxide 24 mmol/L (22-29); Chloride 109 mmol/L (96-108); Creatinine Clr Calc Pharmacy 66.3; Estimated Glomerular Filt Rate > 60; Glucose Random 134 mg/dL (60-115); Magnesium 1.9 mg/dL (1.6-2.6); Phosphorus 2.1 mg/dL (2.7-4.5); Potassium 4.3 mmol/L (3.3-5.1); Sodium 139 mmol/L (135-145); Total Protein 5.9 g/dL (6.5-8.0)
--- NOTE | 2024-12-03 11:16 | P.PNIM_ITS ---
Subjective Subjective Date of Service: 12/03/24 Interval History: feels weak no lightheadedness no wheezing Review of Systems Review of Systems: Yes all other systems are reviewed and are negative Physical Exam 2 Vital Signs: Vital Signs: Last Vital Signs Temp 97.7 F 12/03/24 07:43 Pulse 67 12/03/24 07:43 Resp 18 12/03/24 07:43 BP 144/96 H 12/03/24 08:25 Pulse Ox 98 12/03/24 07:43 O2 Del Method Room Air 12/03/24 07:43 O2 Flow Rate 1 12/01/24 15:00 FiO2 28 12/01/24 09:00 BMI result Body Mass Index 14.4 Gen: in no acute distress, malnourished HEENT: sclera anicteric, moist mucus membranes Neck: supple Lungs: diminished Heart: regular rate and rhythm, no murmurs Abd: soft, non-tender, non-distended Ext: no edema Skin: warm/well-perfused Neuro: alert and oriented x3, no focal findings Psych: appropriate affect Objective Data Active Medications Albuterol Sulfate (Albuterol Sulfate (0.083%) 2.5 Mg/3 Ml Vial.Neb) 2.5 mg INHALE Q3H PRN PRN Reason: wheezing Albuterol/Ipratropium (Albuterol/Iprat 2.5/0.5mg 3 Ml Ampul.Neb) 3 ml INHALE RQ4H WHILE AWAKE PRN PRN Reason: Shortness of Breath Last Admin: 12/03/24 00:12 Dose: 3 ml Documented By: BARRON Calcium Carbonate (Calcium Carbonate 750 Mg Tab.Chew) 750 mg PO Q6H PRN PRN Reason: Heartburn Last Admin: 12/02/24 00:24 Dose: 750 mg Documented By: JOE Dextrose (Dextrose 50 % 25 Gm/50 Ml Syringe) 25 gm IVPUSH Q15M PRN; Protocol PRN Reason: per Hypoglycemia Standing Ord. Enoxaparin Sodium (Enoxaparin Sodium 30 Mg/0.3 Ml Syringe) 30 mg SUBCUT Q24H CRISTINA Last Admin: 12/03/24 08:24 Dose: 30 mg Documented By: YAAKOV Glucose (Glucose Gel 15 Gm Gel..Gram.) 15 gm PO Q15M PRN; Protocol PRN Reason: per Hypoglycemia Standing Ord. Hydromorphone HCl (Hydromorphone Hcl 0.5 Mg/0.5 Ml Syringe) 0.5 mg IVPUSH Q3H PRN; Protocol PRN Reason: Pain, Severe (Pain Scale 7-10) Last Admin: 12/02/24 19:13 Dose: 0.5 mg Documented By: YAAKOV Cefepime HCl (Maxipime) 2 gm in 50 mls @ 100 mls/hr IV Q12H [facility] Last Infusion: 12/03/24 08:59 Dose: Infused Documented By: YAAKOV Insulin Human Lispro (Insulin Lispro 100 Unit/Ml 3 Ml Vial) 0 unit SUBCUT QIDACHS [facility]; Protocol Last Admin: 12/03/24 08:22 Dose: Not Given Documented By: YAAKOV Non-Admin Reason: No Insulin Coverage Midodrine (Midodrine Hcl 5 Mg Tablet) 5 mg PO TID [facility] Last Admin: 12/03/24 08:25 Dose: 5 mg Documented By: YAAKOV Omeprazole (Omeprazole 20 Mg Capsule.Dr) 20 mg PO DAILY@0630 [facility] Last Admin: 12/03/24 04:58 Dose: 20 mg Documented By: JEREMIAH Ondansetron HCl (Ondansetron Odt 4 Mg Tab.Rapdis) 4 mg TRANSLINGU Q8H PRN PRN Reason: nausea Polyethylene Glycol (Polyethylene Glycol 3350 17 Gm Powd.Pack) 17 gm PO DAILY [facility] Last Admin: 12/03/24 08:25 Dose: 17 gm Documented By: YAAKOV Prednisone (Prednisone 20 Mg Tablet) 40 mg PO DAILY [facility] Last Admin: 12/03/24 08:25 Dose: 40 mg Documented By: YAAKOV Tramadol HCl (Tramadol Hcl 50 Mg Tablet) 50 mg PO Q8H PRN PRN Reason: Pain, Moderate(Pain Scale 4-6) Last Admin: 12/03/24 08:25 Dose: 50 mg Documented By: YAAKOV Labs 12/03/24 09:02 12/03/24 09:02 Labs: Laboratory Results - last 24 hr 12/02/24 12/02/24 12/02/24 11:30 16:22 20:53 MCV MCH MCHC RDW Plt Count MPV Absolute Nucleated RBC Nucleated RBC % (auto) PT INR Anion Gap Estim Creat Clear Calc Estimated GFR POC Glucose 150 H 127 H 199 H Random Glucose Calcium Phosphorus Magnesium Total Bilirubin AST ALT Alkaline Phosphatase Total Protein Albumin 12/02/24 12/03/24 12/03/24 23:16 07:00 09:02 MCV 91.5 MCH 31.8 MCHC 34.8 RDW 14.4 Plt Count 201 D MPV 11.0 Absolute Nucleated RBC 0.000 Nucleated RBC % (auto) 0.0 PT 14.0 H INR 1.2 H Anion Gap 10 L Estim Creat Clear Calc 66.3 Estimated GFR > 60 POC Glucose 120 H 136 H Random Glucose 134 H Calcium 8.3 L Phosphorus 2.1 L Magnesium 1.9 Total Bilirubin 1.2 H AST 67 H ALT 168 H Alkaline Phosphatase 254 H Total Protein 5.9 L Albumin 3.6 Microbiology Microbiology Results: Microbiology 11/30/24 18:42 Blood Culture - Preliminary Blood - Venous Gram negative [place] 11/30/24 18:42 Blood Culture - Preliminary Blood - Venous Gram negative [place] 11/30/24 Unknown Urine Culture - Final Urine clean catch - Clean Catch Midstream Assessment and Plan (1) Septic shock: Status: Acute Plan d4 for 69yo M with HCC who underwent chemo[place]embolization [place] [facility] 11[place]26[place], prior HBV + HCV, hemochromatosis, liver fibrosis, hx colectomy for ischemic bowel, asthma-COPD syndrome admitted to the ICU with septic shock due to GNR bacteremia and acute hypoxic respiratory failure due to COPD exacerbation. Weaned off BiPAP 12/01 and off norepinephrine 12/02 then stepped down to telemetry 12/02. septic shock due to GNR bacteremia - continue cefepime 11/30-. Follow BCx speciation/susceptibilities; surveillance BCx drawn today. - decrease midodrine from 10 to 5 mg tid; decrease further as tolerated tomorrow COPD-asthma overlap with acute exac - continue prednisone, bronchodilators hepatoma - s/p chemoembolization 11/26 - transamaminases improving NAGMA - resolved; was due to NS hypoPO4 - replete; recheck level in AM severe pr-carrington malnutrition - supplements VTE ppx - enoxaparin dispo - PT eval: STR In my clinical judgment, the patient requires continued inpatient hospitalization for the following reasons: IV ABX Total time managing care of this patient today: 45 minutes. Quality Stroke Does the patient have a stroke diagnosis?: No VTE Prior VTE?: No VTE Risk Level:: Medical - moderate - high VTE Device Contraindication: N/A - Device Ordered VTE Drug Contraindication: N/A - Med Ordered
[2024-12-03] MEDS: Sodium,Potassium Phosphates POWD.PACK 2 PACKET PO (11:50)
[2024-12-03 12:51] LABS: Glucose, Whole Blood 129 mg/dL (60-115)
[2024-12-03] MEDS: HYDROmorphone HCl 0.5 MG/0.5 ML SYRINGE IVPUSH (14:49)
[2024-12-03 16:40] LABS: Glucose, Whole Blood 116 mg/dL (60-115)
[2024-12-03] MEDS: Albuterol Sulfate (0.083%) 2.5 MG/3 ML VIAL.NEB INHALE (21:03)
[2024-12-03 21:57] LABS: Glucose, Whole Blood 123 mg/dL (60-115)
[2024-12-04] VITALS (7 sets, daily range): BP systolic 128–155; BP diastolic 66–89; PULSE 77–94; RESP 15–20; TEMP 36.1–37.3; O2SAT 94–97
--- NOTE | 2024-12-04 04:00 | PC.NURSE ---
late entry-12-01-24) 0249-despite c/o of 04/18 pt declined iv dilaudid and requested tramadol instead.
[2024-12-04] MEDS: traMADoL HCL 50 MG TABLET PO ×3 (04:18→21:18)
[2024-12-04] MEDS: Omeprazole 20 MG CAPSULE.DR PO (04:18)
[2024-12-04 07:39] LABS: Hematocrit 38.8 % (42.0-52.0); Hemoglobin 13.2 g/dl (14.0-18.0); Mean Corpuscular Hemoglobin 31.1 pg (27.0-33.0); Mean Corpuscular Volume 91.3 fL (80.0-98.0); Mean Platelet Volume 10.8 fL (9.4-12.4); Platelet Count 243 X10*3/uL (160-400); Red Blood Count 4.25 X10*6/uL (4.60-5.80); Red Cell Distribution Width 14.1 % (11.0-16.0); White Blood Count 12.9 X10*3/uL (4.8-10.8)
[2024-12-04 07:50] LABS: Alanine Aminotransferase 140 U/L (0-40); Albumin Level 3.5 g/dL (3.5-5.0); Alkaline Phosphatase 230 U/L (39-117); Anion Gap 8 (12-20); Aspartate Amino Transferase 58 U/L (5-37); Bilirubin Total 1.6 mg/dL (0.0-1.0); Blood Urea Nitrogen 19 mg/dL (9-16); Calcium 8.4 mg/dL (8.4-10.2); Carbon Dioxide 27 mmol/L (22-29); Chloride 107 mmol/L (96-108); Creatinine Clr Calc Pharmacy 66.3; Estimated Glomerular Filt Rate > 60; Glucose Random 85 mg/dL (60-115); Magnesium 1.8 mg/dL (1.6-2.6); Phosphorus 1.9 mg/dL (2.7-4.5); Sodium 138 mmol/L (135-145); Total Protein 5.7 g/dL (6.5-8.0)
[2024-12-04 08:16] LABS: Glucose, Whole Blood 85 mg/dL (60-115)
[2024-12-04] MEDS: Sodium,Potassium Phosphates POWD.PACK 2 PACKET PO ×4 (08:43→21:18)
[2024-12-04] MEDS: cefEPime HCl/D5W 2 GM/50 ML PIGGYBACK IV (08:43)
[2024-12-04] MEDS: Enoxaparin Sodium 30 MG/0.3 ML SYRINGE SUBCUT (08:43)
[2024-12-04] MEDS: predniSONE 20 MG TABLET 40 MG PO (08:43)
--- NOTE | 2024-12-04 11:24 | HO.PM.IMPN ---
Subjective Subjective Date of Service: 12/04/24 Interval History: weakness improving no abd pain no fever BP running a little high now Review of Systems Review of Systems: Yes all other systems are reviewed and are negative Physical Exam Vital Signs: Vital Signs: Last Vital Signs Temp 99.1 F 12/04/24 10:54 Pulse 77 12/04/24 10:54 Resp 16 12/04/24 10:54 BP 155/77 H 12/04/24 10:54 Pulse Ox 96 12/04/24 10:54 O2 Del Method Room Air 12/04/24 10:54 O2 Flow Rate 1 12/01/24 15:00 FiO2 28 12/01/24 09:00 BMI result Body Mass Index 14.4 Gen: in no acute distress, malnourished HEENT: sclera anicteric, moist mucus membranes Neck: supple Lungs: diminished Heart: regular rate and rhythm, no murmurs Abd: soft, non-tender, non-distended Ext: no edema Skin: warm/well-perfused Neuro: alert and oriented x3, no focal findings Psych: appropriate affect Objective Data Active Medications Albuterol Sulfate (Albuterol Sulfate (0.083%) 2.5 Mg/3 Ml Vial.Neb) 2.5 mg INHALE Q3H PRN PRN Reason: wheezing Last Admin: 12/03/24 21:03 Dose: 2.5 mg Documented By: MAHESH Albuterol/Ipratropium (Albuterol/Iprat 2.5/0.5mg 3 Ml Ampul.Neb) 3 ml INHALE RQ4H WHILE AWAKE PRN PRN Reason: Shortness of Breath Last Admin: 12/03/24 00:12 Dose: 3 ml Documented By: BARRON Calcium Carbonate (Calcium Carbonate 750 Mg Tab.Chew) 750 mg PO Q6H PRN PRN Reason: Heartburn Last Admin: 12/02/24 00:24 Dose: 750 mg Documented By: JOE Dextrose (Dextrose 50 % 25 Gm/50 Ml Syringe) 25 gm IVPUSH Q15M PRN; Protocol PRN Reason: per Hypoglycemia Standing Ord. Enoxaparin Sodium (Enoxaparin Sodium 30 Mg/0.3 Ml Syringe) 30 mg SUBCUT Q24H CRISTINA Last Admin: 12/04/24 08:43 Dose: 30 mg Documented By: ASA Glucose (Glucose Gel 15 Gm Gel..Gram.) 15 gm PO Q15M PRN; Protocol PRN Reason: per Hypoglycemia Standing Ord. Hydromorphone HCl (Hydromorphone Hcl 0.5 Mg/0.5 Ml Syringe) 0.5 mg IVPUSH Q3H PRN; Protocol PRN Reason: Pain, Severe (Pain Scale 7-10) Last Admin: 12/03/24 14:49 Dose: 0.5 mg Documented By: YAAKOV Cefepime HCl (Maxipime) 2 gm in 50 mls @ 100 mls/hr IV Q12H [facility] Last Infusion: 12/04/24 09:45 Dose: Infused Documented By: ASA Insulin Human Lispro (Insulin Lispro 100 Unit/Ml 3 Ml Vial) 0 unit SUBCUT QIDACHS [facility]; Protocol Last Admin: 12/04/24 07:53 Dose: Not Given Documented By: ASA Non-Admin Reason: No Insulin Coverage Midodrine (Midodrine Hcl 2.5 Mg Tablet) 2.5 mg PO TID [facility] Stop: 12/04/24 22:00 Last Admin: 12/04/24 08:40 Dose: Not Given Documented By: ASA Non-Admin Reason: med unavailable, B/P high Omeprazole (Omeprazole 20 Mg Capsule.Dr) 20 mg PO DAILY@0630 [facility] Last Admin: 12/04/24 04:18 Dose: 20 mg Documented By: JEREMIAH Ondansetron HCl (Ondansetron Odt 4 Mg Tab.Rapdis) 4 mg TRANSLINGU Q8H PRN PRN Reason: nausea Polyethylene Glycol (Polyethylene Glycol 3350 17 Gm Powd.Pack) 17 gm PO DAILY [facility] Last Admin: 12/04/24 08:45 Dose: Not Given Documented By: ASA Non-Admin Reason: Patient Refused Potassium Phos/Sodium Phos (Sodium,Potassium Phosphates Powd.Pack) 2 packet PO QID [facility] Last Admin: 12/04/24 08:43 Dose: 2 packet Documented By: ASA Prednisone (Prednisone 20 Mg Tablet) 40 mg PO DAILY [facility] Last Admin: 12/04/24 08:43 Dose: 40 mg Documented By: ASA Tramadol HCl (Tramadol Hcl 50 Mg Tablet) 50 mg PO Q8H PRN PRN Reason: Pain, Moderate(Pain Scale 4-6) Last Admin: 12/04/24 04:18 Dose: 50 mg Documented By: JEREMIAH Labs 12/04/24 07:22 12/04/24 07:22 Labs: Laboratory Results - last 24 hr 12/03/24 12/03/24 12/03/24 11:20 15:35 20:38 MCV MCH MCHC RDW Plt Count MPV Absolute Nucleated RBC Nucleated RBC % (auto) Anion Gap Estim Creat Clear Calc Estimated GFR POC Glucose 129 H 116 H 123 H Random Glucose Calcium Phosphorus Magnesium Total Bilirubin AST ALT Alkaline Phosphatase Total Protein Albumin 12/04/24 12/04/24 07:22 07:30 MCV 91.3 MCH 31.1 MCHC 34.0 RDW 14.1 Plt Count 243 MPV 10.8 Absolute Nucleated RBC 0.000 Nucleated RBC % (auto) 0.0 Anion Gap 8 L Estim Creat Clear Calc 66.3 Estimated GFR > 60 POC Glucose 85 Random Glucose 85 Calcium 8.4 Phosphorus 1.9 L Magnesium 1.8 Total Bilirubin 1.6 H AST 58 H ALT 140 H Alkaline Phosphatase 230 H Total Protein 5.7 L Albumin 3.5 Microbiology Microbiology Results: Microbiology 12/03/24 09:02 Blood Culture - Preliminary Blood - Venous No growth after 24 hours. 12/03/24 09:03 Blood Culture - Preliminary Blood - Venous No growth after 24 hours. 11/30/24 18:42 Blood Culture - Final Blood - Venous Escherichia coli 11/30/24 18:42 Blood Culture - Final Blood - Venous Escherichia coli Assessment and Plan (1) Septic shock: Status: Acute Plan d5 for 69yo M with HCC who underwent chemo-embolization at [facility] [place] [place] 11/26/24, prior HBV + HCV, hemochromatosis, liver fibrosis, hx colectomy for ischemic bowel, asthma-COPD syndrome admitted to the ICU with septic shock due to E coli bacteremia and acute hypoxic respiratory failure due to COPD exacerbation. Weaned off BiPAP 12/01 and off norepinephrine 12/02 then stepped down to telemetry 12/02. septic shock due to E coli bacteremia - parker-sensitive; change cefepime [11/30-12/04] to ceftriaxone [12/04-] with plan for total 14d and to complete course with cefuroxime upon discharge. Follow surveillance BCx drawn 12/03. - stop midodrine COPD-asthma overlap with acute exac - lungs are completely clear; stop prednisone, continue bronchodilators hepatoma - s/p chemoembolization 11/26 - transaminases improving NAGMA - resolved; was due to NS hypoPO4 - replete PO; recheck level in AM severe pr-carrington malnutrition - supplements VTE ppx - enoxaparin dispo - PT eval: STR recommended but pt declines; plan home with VNA as alternative In my clinical judgment, the patient requires continued inpatient hospitalization for the following reasons: bacteremia, IV ABX Total time managing care of this patient today: 40 minutes. Quality Stroke Does the patient have a stroke diagnosis?: No VTE Prior VTE?: No VTE Risk Level:: Medical - moderate - high VTE Device Contraindication: N/A - Device Ordered VTE Drug Contraindication: N/A - Med Ordered
[2024-12-04 11:26] LABS: Glucose, Whole Blood 79 mg/dL (60-115)
[2024-12-04] MEDS: cefTRIAXone sodium 2 GM VIAL IVPUSH (11:50)
--- NOTE | 2024-12-04 12:24 | MHC.CLN ---
F/U PT IS MODERATELY MALNOURISHED PO INTAKE 25, 25, 0% DIET RX: REGULAR NEUTROPENIC RECEIVING ENSURE BID TO INCREASE KCALS SUPPLEMENT PROVIDES 700KCALS, 40G PROTEIN ALONG WITH MAGIC CUP WITH MEALS TO INCREASE KCALS AND PROMOTE WT GAIN MONITOR PO INTAKE AND ENCOURAGE SUPPLEMENT DAILY WEIGHTS R/T HIGH RISK D/T MALNUTRITION
[2024-12-04] MEDS: Albuterol Sulfate (0.083%) 2.5 MG/3 ML VIAL.NEB INHALE (12:51)
[2024-12-04] MEDS: HYDROmorphone HCl 0.5 MG/0.5 ML SYRINGE IVPUSH (18:33)
[2024-12-04] MEDS: guaiFENesin LA 600 MG TAB.ER.12H PO (21:45)
[2024-12-05] VITALS: BP 153/101; PULSE 71; RESP 19; TEMP 37.4; O2SAT 95
[2024-12-05] MEDS: Acetaminophen 325 MG TABLET 650 MG PO (01:26)
[2024-12-05 02:01] LABS: Glucose, Whole Blood 132 mg/dL (60-115)
[2024-12-05 02:01] LABS: Glucose, Whole Blood 109 mg/dL (60-115)
[2024-12-05 03:49] VITALS: BP 148/90; PULSE 75; RESP 19; TEMP 36.9; O2SAT 95
[2024-12-05] MEDS: Omeprazole 20 MG CAPSULE.DR PO (05:51)
[2024-12-05] MEDS: traMADoL HCL 50 MG TABLET PO (05:51)
[2024-12-05 07:45] VITALS: BP 119/93; PULSE 90; RESP 18; TEMP 36.9; O2SAT 97
[2024-12-05 08:36] LABS: Glucose, Whole Blood 89 mg/dL (60-115)
[2024-12-05] MEDS: Sodium,Potassium Phosphates POWD.PACK 2 PACKET PO (08:52)
[2024-12-05] MEDS: Enoxaparin Sodium 30 MG/0.3 ML SYRINGE SUBCUT (08:52)
[2024-12-05 09:24] LABS: Anion Gap 12 (12-20); Blood Urea Nitrogen 14 mg/dL (9-16); Calcium 8.5 mg/dL (8.4-10.2); Carbon Dioxide 26 mmol/L (22-29); Chloride 104 mmol/L (96-108); Creatinine Clr Calc Pharmacy 66.3; Estimated Glomerular Filt Rate > 60; Glucose Random 117 mg/dL (60-115); Magnesium 1.8 mg/dL (1.6-2.6); Phosphorus 2.3 mg/dL (2.7-4.5); Potassium 3.8 mmol/L (3.3-5.1); Sodium 138 mmol/L (135-145)
--- NOTE | 2024-12-05 10:26 | P.F2F_ITS ---
Service Date Service Date: 12/05/24 Encounter Date of encounter: 12/05/24 Reasons for Services Signs and symptoms assessed: attach PT evaluations 12/03-12/04/24 Reason for retirement: medication management, medication treatment and teach disease management Reason for physical therapy: home safety and mobility, therapeutic exercises, gait/transfer training, assess need for DME, ADL training and energy conservation MD Overseeing Care: Chantell Gamino Homebound: Leaving the home is medically contraindicated at this time without the asist of a device and/or another person due th the listed conditions above and below. Reason homebound: unsteady gait / fall risk, immunosuppression / infection risk and weakness related to hospital stay Certification: Based on the above findings, I certify that this patient is confined to the home and needs intermittent retirement care, physical therapy and/or speech therapy, or continues to need occupational therapy. The patient is under my care, and I have initiated the establishment of the plan of care. The patient will be followed by a physician who will periodically review the plan of care. Time Spent With Patient Time: Total time managing care of this patient today ____ minutes.
--- NOTE | 2024-12-05 10:27 | PM.DS ---
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 Patient presented to the emergency room via EMS reporting not feeling well and having increased abdominal pain since the day of the procedure, pain is ongoing, sharp at times pressure-like throughout the abdomen but mostly around the liver area rated 8/10 at its worst and 5/10 constantly. He has had some nausea vomiting and diarrhea but is unable to describe how often. He has had some chills but no fever as well as a productive cough with white sputum. Admits having some shortness of breath, but not chest pain, no arm or jaw radiation, denies history of coronary artery disease, no PE or DVT in the past. In the emergency room the patient will move was noted to be hypotensive with blood pressure of 85/68, tachycardic at 01:28 and tachypneic at 30 breaths per minute with a temporal temperature of 100.8 degrees F. the patient was given nebulizers and given his ongoing work of breathing was placed on BiPAP. Otherwise the ER workup did not reveal a white count however there is bandemia, high neutrophil count and toxic vacuolation in the differential. There is no electrolyte abnormalities but his BUN to creatinine ratio appears to be increased. The patient received 1.5 L of IV fluids and was given Zosyn. His initial lactic acid was 5.4 and has come down to 3.6. Total bilirubin is 2.3 and was previously normal; AST and ALT are 310 and 277 respectively. Repeat laboratories reveal a new white count after steroid administration as well as decreased magnesium, phosphorus and calcium. Urine not obtained yet. Given that the patient's blood pressure the no improve after IV fluid administration, he was started on Levophed in the ER. During my encounter the patient is able to answer yes no questions and cooperate all the above. Unable to give any further history. Regarding his pain has 6/10 pain at this point, localized and points to the right upper quadrant. He did have a CT angiogram of the chest abdomen and pelvis which reveals post embolization changes of the hepatic segment 6 and 7 with multiple oculi of parenchymal air and surrounding edema. Otherwise no acute disease of the abdomen and pelvis. Severe emphysematous changes of the bilateral lung bases. No evidence of infiltrates. Large left renal cyst measuring 7 cm. At this point patient will be admitted to the ICU. 69yo M with HCC who underwent chemo-embolization at [facility] 11/26/24, prior HBV + HCV, hemochromatosis, liver fibrosis, hx colectomy for ischemic bowel, asthma-COPD syndrome admitted to the ICU with septic shock due to E coli bacteremia and acute hypoxic respiratory failure due to COPD exacerbation. Weaned off BiPAP 12/01 and off norepinephrine 12/02 then stepped down to telemetry 12/02. He was also weaned off midodrine. He was treated with IV cefepime 11/30-12/04. E. coli proved to be parker-sensitive and he was switched to IV ceftriaxone 12/04-12/05 and discharged on 9 more days of PO cefuroxime for a total of 14 days. Follow-up blood cultures 12/03 were negative. He was treated with a short course of steroids for COPD exacerbation while in the hospital. He had persistent hypophosphatemia and was prescribed repletion with instructions for follow-up BMP and phosphorous in 1 week. Good nutrition was counseled given his malnutrition. He was discharged home with VNA services/home PT. Time Attestation Discharge Coordination Time (in mins): 45 Quality: Safe Use of Opioids Does Pt have an Active Cancer Diagnosis on the Problem List?: No Quality: Stroke Does the patient have a stroke diagnosis?: No Physical Exam Vital Signs: Vital Signs: Last Vital Signs Temp 98.4 F 12/05/24 07:45 Pulse 90 12/05/24 07:45 Resp 18 12/05/24 07:45 BP 119/93 H 12/05/24 07:45 Pulse Ox 97 12/05/24 07:45 O2 Del Method Room Air 12/05/24 07:45 O2 Flow Rate 1 12/01/24 15:00 FiO2 28 12/01/24 09:00 BMI result Body Mass Index 14.4 Gen: in no acute distress, malnourished HEENT: sclera anicteric, moist mucus membranes Neck: supple Lungs: clear Heart: regular rate and rhythm, no murmurs Abd: soft, non-tender, non-distended Ext: no edema Skin: warm/well-perfused Neuro: alert and oriented x3, no focal findings Psych: appropriate affect DS: Data Data Completed and Pending Completed studies during hospitalization [Text1]: Laboratory Results WBC 12.9 X10*3/uL (4.8-10.8) H 12/04/24 07:22 RBC 4.25 X10*6/uL (4.60-5.80) L 12/04/24 07:22 Hgb 13.2 g/dl (14.0-18.0) L 12/04/24 07:22 Hct 38.8 % (42.0-52.0) L 12/04/24 07:22 MCV 91.3 fL (80.0-98.0) 12/04/24 07:22 MCH 31.1 pg (27.0-33.0) 12/04/24 07:22 MCHC 34.0 g/dl (31.0-36.0) 12/04/24 07:22 RDW 14.1 % (11.0-16.0) 12/04/24 07:22 Plt Count 243 X10*3/uL (160-400) 12/04/24 07:22 MPV 10.8 fL (9.4-12.4) 12/04/24 07:22 Immature Gran % (Auto) Cancelled 12/02/24 04:58 Neut % (Auto) Cancelled 12/02/24 04:58 Lymph % (Auto) Cancelled 12/02/24 04:58 [place] % (Auto) Cancelled 12/02/24 04:58 Eos % (Auto) Cancelled 12/02/24 04:58 Baso % (Auto) Cancelled 12/02/24 04:58 Lymph # (Auto) Cancelled 12/02/24 04:58 [place] # (Auto) Cancelled 12/02/24 04:58 Eos # (Auto) Cancelled 12/02/24 04:58 Baso # (Auto) Cancelled 12/02/24 04:58 Abs Immat Gran (auto) Cancelled 12/02/24 04:58 Absolute Neuts (auto) Cancelled 12/02/24 04:58 Absolute Nucleated RBC 0.000 X10*3/uL (0.0-0.012) 12/04/24 07:22 Nucleated RBC % (auto) 0.0 /100WBC (0.0-0.2) 12/04/24 07:22 Neutrophils % (Manual) 90 % (45-73) H 12/02/24 04:58 Band Neutrophils % 5 % (3-5) 12/02/24 04:58 Lymphocytes % (Manual) 4 % (20-40) L 12/02/24 04:58 Monocytes % (Manual) 1 % (2-11) L 12/02/24 04:58 Eosinophils % (Manual) 1 % (0-4) 11/30/24 18:42 Abs Neuts (Manual) 29.1 X10*3/uL (2.0-8.3) H 12/02/24 04:58 Lymphocytes # (Manual) 1.2 X10*3/uL (1.2-4.9) 12/02/24 04:58 Monocytes # (Manual) 0.3 X10*3/uL (0.1-1.2) 12/02/24 04:58 Eosinophils # (Manual) 0.1 X10*3/uL (0.0-0.4) 11/30/24 18:42 Toxic Granulation PRESENT 12/02/24 04:58 Toxic Vacuolation PRESENT 12/01/24 04:57 Dohle Bodies PRESENT 12/02/24 04:58 Platelet Estimate SLIGHTLY DECREASED (NORMAL) 12/02/24 04:58 Large Platelets PRESENT 12/02/24 04:58 Plt Morphology Comment NOTED 12/02/24 04:58 RBC Morphology NOTED 12/02/24 04:58 Ovalocytes 1+ (5-14) /OIF 12/02/24 04:58 Zoe Cells 2+ (3-5) /OIF 12/02/24 04:58 Schistocytes 1+ (0-2) /OIF 12/01/24 04:57 Hold Purple Top SEE NOTE 12/05/24 08:36 PT 14.0 SEC (10.9-12.4) H 12/03/24 09:02 INR 1.2 (0.9-1.1) H 12/03/24 09:02 APTT 24.8 SEC (26.0-36.8) L D 11/30/24 18:42 VBG pH 7.45 (7.32-7.43) H 12/02/24 05:01 VBG pCO2 30 mmHg 12/02/24 05:01 VBG pO2 37 mmHg 12/02/24 05:01 VBG HCO3 21 mmol/L (22-26) L 12/02/24 05:01 VBG O2 Saturation 59.0 % 12/02/24 05:01 VBG Base Excess -1.4 mmol/L 12/02/24 05:01 Sodium 138 mmol/L (135-145) 12/05/24 08:36 Potassium 3.8 mmol/L (3.3-5.1) 12/05/24 08:36 Chloride 104 mmol/L (96-108) 12/05/24 08:36 Carbon Dioxide 26 mmol/L (22-29) 12/05/24 08:36 Anion Gap 12 (12-20) 12/05/24 08:36 BUN 14 mg/dL (9-16) 12/05/24 08:36 Creatinine 0.63 mg/dL (0.5-1.4) 12/05/24 08:36 Estim Creat Clear Calc 66.3 12/05/24 08:36 Estimated GFR > 60 12/05/24 08:36 POC Glucose 89 mg/dL (60-115) 12/05/24 07:13 Random Glucose 117 mg/dL (60-115) H 12/05/24 08:36 Lactic Acid 5.4 mmol/L (0.5-2.0) H* 11/30/24 18:42 Lactic Acid F/U @ 2Hr 3.6 mmol/L (0.5-2.0) H* 11/30/24 22:07 Lactic Acid F/U @ 4Hr 2.9 mmol/L (0.5-2.0) H* 12/01/24 00:45 Calcium 8.5 mg/dL (8.4-10.2) 12/05/24 08:36 Phosphorus 2.3 mg/dL (2.7-4.5) L 12/05/24 08:36 Magnesium 1.8 mg/dL (1.6-2.6) 12/05/24 08:36 Total Bilirubin 1.6 mg/dL (0.0-1.0) H 12/04/24 07:22 AST 58 U/L (5-37) H 12/04/24 07:22 ALT 140 U/L (0-40) H 12/04/24 07:22 Alkaline Phosphatase 230 U/L (39-117) H 12/04/24 07:22 Troponin I High Sens 4.5 ng/L (<3.5-35.0) 11/30/24 18:42 B-Natriuretic Peptide 107 pg/mL (<100) H 11/30/24 23:12 Total Protein 5.7 g/dL (6.5-8.0) L 12/04/24 07:22 Albumin 3.5 g/dL (3.5-5.0) 12/04/24 07:22 Lipase 10 U/L (8-78) 11/30/24 18:42 Urine Color Yellow 11/30/24 23:12 Urine Appearance Cloudy 11/30/24 23:12 Urine pH 6.5 (5.0-9.0) 11/30/24 23:12 Ur Specific [place] >= 1.030 (1.005-1.025) H 11/30/24 23:12 Urine Protein 100 (2+) mg/dL (Neg-Trace) H 11/30/24 23:12 Urine Glucose (UA) Negative mg/dL (Negative) 11/30/24 23:12 Urine Ketones Negative mg/dL (Negative) 11/30/24 23:12 Urine Blood Moderate (2+) (Negative) H 11/30/24 23:12 Urine Nitrite Positive (Negative) H 11/30/24 23:12 Ur Leukocyte Esterase Moderate (2+) (Negative) H 11/30/24 23:12 Urine RBC 6-10 /HPF (0-2) H 11/30/24 23:12 Urine WBC >50 /HPF (0-5) 11/30/24 23:12 Ur Squamous Epith Cells 0-2 /HPF (0-2) 11/30/24 23:12 Urine Bacteria Trace (None Seen) 11/30/24 23:12 Hyaline Casts 0-2 /LPF (0-2) 11/30/24 23:12 Granular Casts Present 11/30/24 23:12 Influenza Type A (PCR) NEGATIVE (Negative) 11/30/24 19:20 Influenza Type B (PCR) NEGATIVE (Negative) 11/30/24 19:20 RSV RNA Qual (PCR) NEGATIVE (Negative) 11/30/24 19:20 SARS-CoV-2 RNA (RT-PCR) NEGATIVE (Negative) 11/30/24 19:20 Blood Type O Negative 11/30/24 18:49 Antibody Screen NEGATIVE 11/30/24 18:49 Discharge Plan Discharge Anticipated Discharge Date/Time: 12/05/24 10:20 Patient Disposition: Home Health Service Discharge Diagnosis: septic shock due to E. coli bacteremia hypophosphatemia malnutrition liver cancer Referrals: [facility]ER[facility] [Outside] - 1 Week Chantell Gamino MD [Primary Care Provider] - 1 Week Discharge Medications: New potassium, sodium phosphates [Phos-NaK] 280-160-250 mg Powder In Packet 1 packet PO BID Qty: 60 0RF cefuroxime axetil 500 mg tablet 500 mg PO BID Qty: 18 0RF Continued albuterol sulfate 90 mcg/actuation HFA aerosol inhaler 2 puff inhalation Q6H PRN (Reason: for wheezing) Qty: 8.5 1RF naproxen 250 mg Tablet 250 mg PO BID PRN (Reason: Pain) ondansetron HCl 4 mg tablet 4 mg PO Q8H PRN (Reason: nausea) tramadol 50 mg tablet 50 mg PO TID PRN (Reason: pain, moderate) 30 Days Qty: 120 3RF budesonide-formoterol [Symbicort] 160-4.5 mcg/actuation HFA aerosol inhaler 2 puff inhalation Q12H 30 Days Qty: 10.2 5RF albuterol sulfate 90 mcg/actuation HFA aerosol inhaler 2 puff inhalation Q4-6H PRN (Reason: shortness of breath or wheezing) 60 Days Qty: 8.5 3RF Discharge Orders: Discharge Order (Routine); Ordered 12/05/24 Ordered By: Angel Egan Diet: Advance to usual diet Activity on Discharge: As tolerated Stand Alone Forms: Patient Portal Discharge page Print Language: Burundian Other Ambulatory Orders: Basic Metabolic Panel (Routine) Timeframe: 1 Week Facility: [facility] - Location: Laboratory Ordered By: Angel Egan Phosphorus (Routine) Timeframe: 1 Week Facility: [facility] - Location: Laboratory Ordered By: Angel Egan Care Plan Goals: recovery from infection Health Concerns: septic shock due to E. coli bacteremia hypophosphatemia malnutrition liver cancer Plan of Treatment: take cefuroxime 500 mg twice daily for 9 days take phosphorous packets as prescribed and recheck level in 1 week take Ensure, Boost, or other protein supplement follow up with your cancer doctors at [facility] as scheduled in 1 week Please follow up with your primary care doctor within 1 week. Return to the hospital if you experience recurrent or worsening symptoms. Assessment: See Discharge Summary.
[2024-12-05] MEDS: cefTRIAXone sodium 2 GM VIAL IVPUSH (11:18)
--- NOTE | 2024-12-05 12:03 | MHC.CM.PN ---
Patient has been medically cleared for dc to home today, with services. [facility]'s [facility]. Patient left the hospital before CM had an opportunity to address IMM with him.
== END 2024-12-05 11:46 | disposition home health service (06) | DRG 871 ==
LOC: HO.ED 22:42 → HO.EDOVER 22:54 → HO.ICU 23:17 → HO.IMC 12-02 16:03
PROVIDERS: Admitting Provider Physician Assistant Medical; Emergency Provider Emergency Medicine Emergency Medical Services; PCP Internal Medicine; Visit Provider Family Medicine
DX: A41.51 Sepsis due to Escherichia coli [E. coli] (principal); J96.01 Acute respiratory failure with hypoxia; R65.21 Severe sepsis with septic shock; J44.1 Chronic obstructive pulmonary disease with (acute) exacerbation; N17.9 Acute kidney failure, unspecified; N39.0 Urinary tract infection, site not specified; E87.1 Hypo-osmolality and hyponatremia; E44.0 Moderate protein-calorie malnutrition; Z68.1 Body mass index [BMI] 19.9 or less, adult; J45.901 Unspecified asthma with (acute) exacerbation; C22.9 Malignant neoplasm of liver, not specified as primary or secondary; E83.119 Hemochromatosis, unspecified; Z86.19 Personal history of other infectious and parasitic diseases; E83.39 Other disorders of phosphorus metabolism; E86.1 Hypovolemia; K14.1 Geographic tongue; E86.0 Dehydration; E83.42 Hypomagnesemia; Z20.822 Contact with and (suspected) exposure to COVID-19; Z87.891 Personal history of nicotine dependence; Z79.899 Other long term (current) drug therapy
CPT/HCPCS: 0241U; 36415; 71260; 74177; 80048; 80053; 81001; 82803; 82947; 83605; 83690; 83735; 83880; 84100; 84484; 85007; 85025; 85027; 85610; 85730; 86850; 86900; 86901; 87040; 87077; 87086; 87186; 87205; 93005; 94640; 94660; 97162; 97530; 99285; J0613; J0692; J0696; J1171; J1644; J1650; J2470; J2543; J2919; J3010; J3475; J7120; P9047; Q9967

== ENCOUNTER → 2024-11-30 18:34 | Outpatient (BNV) | payer MEDICARE, SELFPAY | PROVIDERS: Emergency Provider Emergency Medicine Emergency Medical Services; Visit Provider Student in an Organized Health Care Education/Training Program | DX: J43.2 Centrilobular emphysema (principal) | CPT/HCPCS: 71260; 74177 ==

== ENCOUNTER → 2024-11-30 18:35 | Outpatient (BNV) | payer MEDICARE, SELFPAY | PROVIDERS: Admitting Provider Physician Assistant Medical; Emergency Provider Emergency Medicine Emergency Medical Services; PCP Internal Medicine; Visit Provider Internal Medicine Cardiovascular Disease | DX: J98.4 Other disorders of lung (principal); R00.0 Tachycardia, unspecified | CPT/HCPCS: 93010 ==

== ENCOUNTER → 2024-11-30 22:46 | Outpatient (BNV) | payer MEDICARE, SELFPAY | PROVIDERS: Admitting Provider Physician Assistant Medical; Emergency Provider Emergency Medicine Emergency Medical Services; PCP Internal Medicine; Visit Provider Family Medicine | DX: A41.9 Sepsis, unspecified organism (principal); R65.21 Severe sepsis with septic shock | CPT/HCPCS: 99232; 99239; 99499; G0180 ==

== ENCOUNTER → 2024-11-30 22:46 | Outpatient (BNV) | payer MEDICARE, SELFPAY | PROVIDERS: Admitting Provider Physician Assistant Medical; Emergency Provider Emergency Medicine Emergency Medical Services; PCP Internal Medicine; Visit Provider Internal Medicine Critical Care Medicine | DX: E27.9 Disorder of adrenal gland, unspecified (principal); I95.9 Hypotension, unspecified; R63.6 Underweight; R16.0 Hepatomegaly, not elsewhere classified; A41.9 Sepsis, unspecified organism; C22.9 Malignant neoplasm of liver, not specified as primary or secondary; J44.9 Chronic obstructive pulmonary disease, unspecified; J96.01 Acute respiratory failure with hypoxia | CPT/HCPCS: 99291 ==

== ENCOUNTER 2024-12-15 06:21 | Outpatient (REF) | payer MEDICARE, SELFPAY ==
--- OUTSIDE RECORDS SUMMARY | 2024-12-15 06:24 | XMS_ITS ---
Author Organization 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 Generated for Printi donya/Hammad/eTransmitting on:?12/15/2024 06:23 AM EDT
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
--- OUTSIDE RECORDS SUMMARY | 2024-12-15 06:24 | XMS_ITS ---
Author Organization [facility] Address [address] [place] [address] Care Team Providers Care Cutter Apprentice Hand Name Role Phone Stevenson BENNETT, Chantell Primary Care Provider Russell Paz Jr REASON FOR VISIT screening Encounters Encounter Location Date Provider Diagnosis [facility] Outpatient [address] [place] [phone] 06/16/2024 Russell Vital Jr Plan Of Treatment No Information Progress Notes * KAJAL MORGAN WDOB:[birth year] (69 yo M)Acc No.[id number]:06/16/2024 COLON WITH MAC Patient:KAJAL MCCARTHY Provider:?Russell Vital MD :1955???Age:69 Y???Sex:Male Jhonny e:06/16/2024 Address:[address] [place], [place] [address] Pcp:Chantell Gamino MD Subjective: * Chief Complaints: * ???1. Screening. * Medical History:? Objective: * Vitals:? Assessment: Plan: * Treatment: * * The named appointment provid er may or may not be the originator of this progress note, and it is not deemed complete until electronically signed by the appointment provider. Sign off status: Pending * Provider:?Russell Vital MD Date:?1 Generated for Printi ng/Faxing/eTransmitting on:?12/15/2024 06:24 AM EDT
[2024-12-15 11:25] LABS: Anion Gap 9 (12-20); Blood Urea Nitrogen 18 mg/dL (9-16); Calcium 9.2 mg/dL (8.4-10.2); Carbon Dioxide 28 mmol/L (22-29); Chloride 107 mmol/L (96-108); Estimated Glomerular Filt Rate > 60; Glucose Random 90 mg/dL (60-115); Phosphorus 2.8 mg/dL (2.7-4.5); Potassium 4.2 mmol/L (3.3-5.1); Sodium 140 mmol/L (135-145)
== END 2024-12-15 06:22 | disposition home or self-care (01) ==
LOC: HO.HMGCLDS 06:21
PROVIDERS: PCP Internal Medicine; Visit Provider Family Medicine
DX: E83.39 Other disorders of phosphorus metabolism (principal)
CPT/HCPCS: 36415; 80048; 84100

== ENCOUNTER 2024-12-16 13:52 | Outpatient (AMB) | payer MEDICARE, SELFPAY ==
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
[2024-12-16 14:21] VITALS: BP 92/60; PULSE 78; RESP 17; TEMP 36.7; O2SAT 100; BMI 15.2
--- OUTSIDE RECORDS SUMMARY | 2024-12-16 16:07 | XMS_ITS ---
Author Organization [facility] Address [address] [place] [address] Care Team Providers Care Airplane Technician Name Role Phone Stevenson BENNETT, Chantell Primary Care Provider Russell Paz Jr Unavailable [phone] Allergies Allergen (clinical drug ingredient) Drug/Non Drug [...] Problem Status W/U Status Risk Notes Problem 962861903 Liver mass (R16.0) Active confirmed Problem 739720830 Adrenal mass (E27.8) Active confirmed Vital Signs Temperature 97.9 degrees Fahrenheit 06/03/20 24 Blood pressure systolic 000 mm Hg 06/03/20 24 Blood pressure diastolic 00 mm Hg 024 Height 68 in 06/03/2024 Weight 109 lb 2 oz lbs 06/03/2024 BMI 16.59 kg/m2 06/03/2024 Weight is down 4 pounds from his visit in October Encounters Encounter Location Date Provider Diagnosis [facility] [address] [place] [address] 06/03/2024 Russell Vital Jr Liver mass R16.0 [...] KAJAL MORGAN WDOB:[birth year] (68 yo M)Acc No.[id number]:06/03/2024 Progress Notes Patient:?KAJAL MORGAN Provider:?Russell Vital MD :1955???Age:68 Y???Sex:Male Jhonny e:06/03/2024 Address:[address] [place], [place] [phone] Pcp:Chantell Gamino MD Subjective: * Chief Complaints: [...] MD Date:?0 06/03/2024 Generated for Chaim naqvi/Hammad/Jocelineitting on:?12/16/2024 04:07 PM EDT History and Physical Notes * HPI [...]
--- OUTSIDE RECORDS SUMMARY | 2024-12-16 16:07 | XMS_ITS | Patient Health Record ---
Author Organization [facility] Address [address] [place] [address] Care Team Providers Care Cabinetmaker Helper Name Role Phone Stevenson BENNETT, Chantell Primary [...] Problem Status W/U Status Risk Notes Problem 604550474 Colon cancer screening (Z12.11) Active confirmed Problem 822353012 Liver mass (R16.0) Active confirmed Problem 77832841 Irritable bowel syndrome with constipation and diarrhea (K58.2) Active confirmed Problem 47435444 Change in bowel function (R19.8) Active confirmed Problem 577003163 Adrenal mass (E27.8) Active confirmed Vital Signs [...] October Encounters Encounter Location Date Provider Diagnosis [facility] [address] [place] [phone] 06/03/2024 Russell Vital Jr Liver mass R16.0 and Adrenal mass E27.8 [facility] [address] [place] [phone] 05/12/[address] [facility] [address] [place] [phone] 07/08/2024 Russell Vital Jr Assessments Encounter Date [...] Insured Coverage Start Date Coverage End Date [facility] [address] [address] [place] [address] [id number] KAJAL MORGAN Self - patient is the [...]
--- OUTSIDE RECORDS SUMMARY | 2024-12-16 16:08 | XMS_ITS ---
Author Organization [facility] Address [address] [place] [address] Care Team Providers Care Chain Machine Operator Name Role Phone Stevenson BENNETT, Chantell Primary Care Provider Russell Paz Jr REASON FOR VISIT MRI Encounters Encounter Location Date Provider Diagnosis [facility] [address] [place] [phone] 07/08/2024 Russell Vital Jr Plan Of Treatment No Information Progress Notes * KAJAL MORGAN WDOB:[birth year] (69 yo M)Acc No.[id number]:07/08/2024 Patient:?KAJAL MORGAN :1955???Age:69 Y???Sex:Male Address:[place], [address] * true * Date:? Generated for Printi donya/Hammad/eTransmitting on:?12/16/2024 04:07 PM EDT
--- OUTSIDE RECORDS SUMMARY | 2024-12-16 16:08 | XMS_ITS | Clinical Summary ---
Author Organization [facility] Address [address] [place] [address] Care Team Providers Care Mechanical Handyman Name Role Phone Ace Bazan MD Primary Care Provider Allergies Active Allergy Reactions Criticality Noted Date Comments Adhesive Tape-Silicones Dermatitis,Rash 024 Amoxicillin Itching 08/25/2024 Gabapentin Other 08/25/2024 Too strong falls down Levofloxacin Itching 08/25/2024 Medications diclofenac (VOLTAREN) 1 % topical gel Apply 2 g topically 5 times daily Active albuterol HFA (PROVENTIL HFA;VENTOLIN HFA) 108 (90 Base) MCG/ACT inhaler Active predniSONE (DELTASONE) 20 mg tablet Active medical marijuana CAR SALES ASSOCIATE med Active fluticasone propionate (FLONASE) 50 mcg/actuation [...] - 09/22/2024 11:59 PM EST Hospital Encounter [facility] PET Scan [address] [place] [address] Hepatomegaly, not elsewhere classified Discharge [...] Signed Date: 09/23/2024 05:55 ET Workstation ID: [id number] Transcribed By: Self Edit Transcribed Date: 09/23/2024 [...] Signed Date: 09/23/2024 05:55 ET Workstation ID: [id number] Transcribed By: Self Edit Transcribed Date: 09/23/2024 05:09 ET Cierra Philip MD IMG NM PROCEDURES Final Result * Lipid panel (08/12/2018) [facility] LDL/HDL Ratio 4 0 - 4 Triglycerides 83 0 - 150 mg/dL Cholesterol 156 0 - 200 mg/dL HDL 40 >=40 mg/dL LDL Cholesterol 99 0 - 100 mg/dL Blood Venous blood specimen / Unknown Result [facility] Historical Provider LAB BLOOD ORDERABLES Radha l Result * Colonoscopy (02/15/2017) [facility] Colonoscopy no interpretation , abstracted Anatomical Region Laterality Modality Other Result [facility] Historical Provider HEALTH MAINTENANCE Final Result * Hepatitis C Screening (09/04/2016) [facility] Hepatitis C Screening abstracted Historical Provider HEALTH MAINTENANCE Final Result from Last 3 Months or Most Recently Relevant to Health Maintenance Insurance [facility] MEDICARE Care Teams Mechanical Handyman Relationship Specialty Start Date End Date Ace Bazan MD PCP - General 05/19/07
--- OUTSIDE RECORDS SUMMARY | 2024-12-16 16:08 | XMS_ITS ---
Author Organization [facility] Address [address] [place] [phone] Care Team Providers Care Show Card Writer Name Role Phone Stevenson BENNETT, Chantell Primary Care Provider Russell Paz Jr REASON FOR VISIT screening Encounters Encounter Location Date Provider Diagnosis [facility] [address] [place] [phone] 06/16/2024 Russell Vital Jr Plan Of Treatment No Information Progress Notes * KAJAL MORGAN WDOB:[birth year] (69 yo M)Acc No.[id number]:06/16/2024 COLON WITH MAC Patient:KAJAL MCCARTHY Provider:?Russell Vital MD :1955???Age:69 Y???Sex:Male Jhonny e:06/16/2024 Address:[address] [place], [place] [address] Pcp:Chantell Gamino MD Subjective: * Chief Complaints: [...] Vital MD Date:?1 Generated for Printi ng/Faxing/eTransmitting on:?12/16/2024 04:08 PM EDT
== END 2024-12-16 14:56 | disposition home or self-care (01) ==
PROVIDERS: PCP Internal Medicine; Visit Provider Internal Medicine
DX: C22.9 Malignant neoplasm of liver, not specified as primary or secondary (principal); E43 Unspecified severe protein-calorie malnutrition; J44.89 Other specified chronic obstructive pulmonary disease; E83.110 Hereditary hemochromatosis; Z87.898 Personal history of other specified conditions; G89.4 Chronic pain syndrome

== ENCOUNTER → 2024-12-16 13:52 | Outpatient (BNVA) | payer MEDICARE, SELFPAY | PROVIDERS: PCP Internal Medicine; Visit Provider Internal Medicine | DX: E83.119 Hemochromatosis, unspecified (principal); J44.9 Chronic obstructive pulmonary disease, unspecified; G89.4 Chronic pain syndrome; M51.369 Other intervertebral disc degeneration, lumbar region without mention of lumbar back pain or lower extremity pain; C22.9 Malignant neoplasm of liver, not specified as primary or secondary; E43 Unspecified severe protein-calorie malnutrition; J44.89 Other specified chronic obstructive pulmonary disease; E83.110 Hereditary hemochromatosis; Z86.19 Personal history of other infectious and parasitic diseases; Z87.898 Personal history of other specified conditions | CPT/HCPCS: 96127; 99495 ==

== ENCOUNTER 2025-01-18 09:29 | Outpatient (AMB) | payer MEDICARE, SELFPAY ==
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
[2025-01-18 09:41] VITALS: BP 102/68; PULSE 84; O2SAT 98; BMI 15.9
--- OUTSIDE RECORDS SUMMARY | 2025-01-18 09:42 | XMS_ITS | Patient Health Record ---
Author Organization [facility] Address [address] [place] [phone] Care Team Providers Care Canary Breeder Name Role Phone Stevenson BENNETT, Chantell Primary [...] Problem Status W/U Status Risk Notes Problem 408711903 Colon cancer screening (Z12.11) Active confirmed Problem 990661690 Liver mass (R16.0) Active confirmed Problem 13451294 Irritable bowel syndrome with constipation and diarrhea (K58.2) Active confirmed Problem 97959583 Change in bowel function (R19.8) Active confirmed Problem 056935175 Adrenal mass (E27.8) Active confirmed Vital Signs [...] October Encounters Encounter Location Date Provider Diagnosis [facility] [address] [place] [phone] 06/03/2024 Russell Vital Jr Liver mass R16.0 and Adrenal mass E27.8 [facility] [address] [place] [phone] 05/12/2024 Russell Vital Jr [facility] [address] [place] [phone] 07/08/2024 Russell Vital Jr Assessments Encounter Date [...] Test Test Name Order Date COLONOSCOPY 11/06/2023 Next Appt Details Provider Name:Russell taylor , 02/17/2025 09:00:00 AM, [address] [place] [address], [address], [place], [address], Insurance Providers Payer Name Payer Address Payer Phone Subscriber Number Group Number Insured Name Patient Relationship to Insured Coverage Start Date Coverage End Date [facility] [id number] [place] [id number] KAJAL MORGAN Self - patient is the [...]
--- OUTSIDE RECORDS SUMMARY | 2025-01-18 09:43 | XMS_ITS ---
Author Organization [facility] Address [address] [place] [phone] Care Team Providers Care Event Marketing Intern Name Role Phone Stevenson BENNETT, Chantell Primary [...] Problem Status W/U Status Risk Notes Problem 832656225 Liver mass (R16.0) Active confirmed Problem 563934192 Adrenal mass (E27.8) Active confirmed Vital Signs Temperature 97.9 degrees Fahrenheit 06/03/20 24 Blood pressure systolic 000 mm Hg 06/03/20 24 Blood pressure diastolic 00 mm Hg 024 Height 68 in 06/03/2024 Weight 109 lb 2 oz lbs 06/03/2024 BMI 16.59 kg/m2 06/03/2024 Weight is down 4 pounds from his visit in October Encounters Encounter Location Date Provider Diagnosis [facility] [address] [place] [address] 06/03/2024 Russell Vital Jr Liver mass R16.0 [...] Next Appt Details Follow Up: prn, Reason: Provider Name:Russell taylor , 02/17/2025 09:00:00 AM, [address], [address], [place], [address], Progress Notes * KAJAL MORGAN WDOB:[birth year] (68 yo M)Acc No.[id number]:06/03/2024 Progress Notes Patient:?AKJAL MORGAN Provider:?Russell Vital MD :1955???Age:68 Y???Sex:Male Jhonny e:06/03/2024 Address:[address] [place], [place] [phone] Pcp:Chantell Gamino MD Subjective: * Chief Complaints: [...] with SVR of, Ischemic co ischemic colitis, 2005 partial colectomy, Colon polyps, colonoscopy 02/23, negative [...] MD Date:?0 06/03/2024 Generated for Chaim naqvi/Hammad/Jocelineitting on:?01/18/2025 09:42 AM EDT History and Physical Notes * [...]
--- OUTSIDE RECORDS SUMMARY | 2025-01-18 09:43 | XMS_ITS | Clinical Summary ---
Author Organization [facility] Address [address] [place] [address] Care Team Providers Care Oil Field Equipment Mechanic Name Role Phone Ace Bazan MD Primary Care Provider [phone] Allergies Active Allergy Reactions Criticality Noted Date Comments Adhesive Tape-Silicones Dermatitis,Rash 024 Amoxicillin Itching 08/25/2024 Gabapentin Other 08/25/2024 Too strong falls down Levofloxacin Itching 08/25/2024 Medications diclofenac (VOLTAREN) 1 % topical gel Apply 2 g topically 5 times daily Active albuterol HFA (PROVENTIL HFA;VENTOLIN HFA) 108 (90 Base) MCG/ACT inhaler Active predniSONE (DELTASONE) 20 mg tablet Active medical marijuana TEXTILE ENGINEER med Active fluticasone propionate (FLONASE) 50 mcg/actuation nasal spray Two sprays per nostril once daily Active Active Problems Problem Noted Date Diagnosed Date Acute vascular insufficiency of intestine ([facility]/H CC V24) 08/25/2024 Hereditary hemochromatosis ([facility]/HCC V24) 024 Neuropathy 08/25/2024 Open-angle glaucoma of both eyes 08/25/2024 Underweight 08/25/2024 Vascular insufficiency of intestine (CMS/HCC V24 ) 08/25/2024 Immunizations Name Administration Dates Next Due Influenza [...] Date Comments Acute vascular insufficiency of intestine (CMS/HCC V24) 08/29/2006 DX:Acute vascular insufficie ncy of intestine (HCC) Historical Medical DX 08/29/2006 DX:Disorde rs of iron metabolism; 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 Benign neoplasm of colon 08/29/2006 DX:Michael gn neoplasm of colon; COMMENT: 7-mm tubulovillous adenoma at colonoscopy 04.05.03. Negative colonoscopy .01.09. Negative colonoscopy . Next colonoscopy indicated 2000. [...] tubulovillous adenoma at colonoscopy 04.05.03. Negative colonoscopy .01.09, , 11/15/2011. Next CN indicated 2016. History of [...] 08/12/2018 Colorectal Cancer Screening: Colonoscopy 02/16/2024 02/15/2017 COVID-19 Vaccine (8 - Pfizer risk season) 2024 05/06/2024, 06/20/2023, 05/13/2022, Additional history exists Hepatitis C Screening Completed 09/04/2016 Zoster Vaccines Completed 05/13/2021, 12/23/2014 Pneumococcal Vaccine: 50+ Years Completed 06/18/2022, 05/13/2020, 07/20/2015 RSV Immunization Adult Patients Completed 04/25/2023 Influenza Vaccine Completed 05/06/2024, , 05/13/2022, Additional [...] Procedure Name Priority Date/Time Associated Diagnosis Comments LIPID PANEL Routine 08/12/2018 COLONOSCOPY Routine 02/15/2017 HEPATITIS C SCREENING Routine 09/04/2016 from Last 3 Months or Most Recently Relevant to Health Maintenance Results * Lipid panel (08/12/2018) LDL/HDL Ratio 4 0 - 4 Triglycerides 83 0 - 150 mg/dL Cholesterol 156 0 - 200 mg/dL HDL 40 >=40 mg/dL LDL Cholesterol 99 0 - 100 mg/dL Blood Venous blood specimen / Unknown us Historical Provider LAB BLOOD ORDERABLES Radha l Result * Colonoscopy (02/15/2017) Colonoscopy no interpretation , abstracted Anatomical Region Laterality Modality Other Historical Provider HEALTH MAINTENANCE Final Result * Hepatitis C Screening (09/04/2016) Pathologist [facility] Hepatitis C Screening abstracted Historical Provider HEALTH MAINTENANCE Final Result from Last 3 Months or Most Recently Relevant to Health Maintenance Insurance [employer] MEDICARE Care Teams Oil Field Equipment Mechanic Relationship Specialty Start Date End Date Ace Bazan MD PCP - General 05/19/07
--- OUTSIDE RECORDS SUMMARY | 2025-01-18 09:43 | XMS_ITS ---
Author Organization [facility] Address [address] [place] [address] Care Team Providers Care Journeyman Electrician Name Role Phone Chantell Gamino MD Primary Care Provider Sam Vital Jr, Russell Jeffery REASON FOR VISIT screening Encounters Encounter Location Date Provider Diagnosis [facility] [address] [place] [phone] 06/16/2024 Russell Vital Jr Plan Of Treatment Next Appt Details Provider Name:Russell taylor Jr, 02/17/2025 09:00:00 AM, [address] [place] [address], Suite [facility], [place], [address], Progress Notes * KAJAL MORGAN WDOB:[birth year] (69 yo M)Acc No.[id number]:06/16/2024 COLON WITH MAC Patient:?KAJAL MORGAN Provider:?Russell Vital MD :1955???Age:69 Y???Sex:Male Jhonny e:06/16/2024 [facility] Pcp:Chantell Gamino MD Subjective: * Chief Complaints: * ???1. Screening. * Medical History:? Objective: * Vitals:? Assessment: Plan: * Treatment: * * The named appointment provid er may or may not be the originator of this progress note, and it is not deemed complete until electronically signed by the appointment provider. Sign off status: Pending * Provider:?Russell Vital MD Date:?1 Generated for Chaim naqvi/Hammad/Fide on:?01/18/2025 09:43 AM EDT
--- OUTSIDE RECORDS SUMMARY | 2025-01-18 09:43 | XMS_ITS ---
Author Organization [facility] Address [address] [facility] [address] [place] [address] Care Team Providers Care Inspector Outside Production Name Role Phone Chantell Gamino MD Primary Care Provider Sam Vital Jr, Russell Jeffery [phone] REASON FOR VISIT MRI Encounters Encounter Location Date Provider Diagnosis [facility] [address] [place] [address] 07/08/2024 Russell Vital Jr Plan Of Treatment Next Appt Details Provider Name:Russell taylor Jr, 02/17/2025 09:00:00 AM, [address] [place] [address], [address], [place], [address], Progress Notes * KAJAL MORGAN WDOB:[birth year] (69 yo M)Acc No.[id number]:07/08/2024 Patient:?KAJAL MORGAN :1955???Age:69 Y???Sex:Male Address:[place], [address] * true * Date:? Generated for Printi ng/Faxing/eTransmitting on:?01/18/2025 09:43 AM EDT
== END 2025-01-18 10:08 | disposition home or self-care (01) ==
PROVIDERS: PCP Internal Medicine; Visit Provider Internal Medicine
DX: J44.89 Other specified chronic obstructive pulmonary disease (principal); Z87.891 Personal history of nicotine dependence; R16.0 Hepatomegaly, not elsewhere classified
CPT/HCPCS: 99213

== ENCOUNTER → 2025-01-18 09:29 | Outpatient (BNVA) | payer MEDICARE, SELFPAY | PROVIDERS: PCP Internal Medicine; Visit Provider Internal Medicine | DX: J44.89 Other specified chronic obstructive pulmonary disease (principal); R16.0 Hepatomegaly, not elsewhere classified; Z87.891 Personal history of nicotine dependence | CPT/HCPCS: 99212 ==

== ENCOUNTER 2025-02-04 08:22 | Outpatient (AMB) | payer MEDICARE, SELFPAY ==
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
[2025-02-04 08:24] VITALS: BP 120/62; PULSE 63; O2SAT 99; BMI 16.3
--- OUTSIDE RECORDS SUMMARY | 2025-02-04 08:32 | XMS_ITS | Patient Health Record ---
Author Organization [facility] Address [address] [place] [phone] Care Team Providers Care Distillery Supervisor Name Role Phone Stevenson BENNETT, Chantell Primary [...] Problem Status W/U Status Risk Notes Problem 663307041 Colon cancer screening (Z12.11) Active confirmed Problem 973226386 Liver mass (R16.0) Active confirmed Problem 60647474 Irritable bowel syndrome with constipation and diarrhea (K58.2) Active confirmed Problem 86004519 Change in bowel function (R19.8) Active confirmed Problem 583224210 Adrenal mass (E27.8) Active confirmed Vital Signs [...] October Encounters Encounter Location Date Provider Diagnosis [facility] [address] [place] [phone] 06/03/2024 Russell Vital Jr Liver mass R16.0 and Adrenal mass E27.8 [facility] [address] [place] [phone] 05/12/2024 Russell Vital Jr [facility] [address] [place] [phone] 07/08/2024 Russell Vital Jr Assessments Encounter Date [...] Provider Name:Russell taylor , 02/17/2025 09:00:00 AM, [address] [place] [address], [address], [place], [address], Insurance Providers Payer Name Payer Address Payer Phone Subscriber Number Group Number Insured Name Patient Relationship to Insured Coverage Start Date Coverage End Date [facility] [address] [place] [address] [id number] KAJAL MORGAN Self - patient is the [...]
== END 2025-02-04 09:16 | disposition home or self-care (01) ==
LOC: HO.HSMS 08:23
PROVIDERS: PCP Internal Medicine; Visit Provider Nurse Practitioner Family
DX: G62.9 Polyneuropathy, unspecified (principal); R25.1 Tremor, unspecified; M79.641 Pain in right hand; M43.16 Spondylolisthesis, lumbar region; M47.816 Spondylosis without myelopathy or radiculopathy, lumbar region
CPT/HCPCS: 99214

== ENCOUNTER → 2025-02-04 08:22 | Outpatient (BNVA) | payer MEDICARE, SELFPAY | PROVIDERS: PCP Internal Medicine; Visit Provider Nurse Practitioner Family | DX: M79.641 Pain in right hand (principal); M43.16 Spondylolisthesis, lumbar region; M47.816 Spondylosis without myelopathy or radiculopathy, lumbar region; R25.1 Tremor, unspecified; G62.9 Polyneuropathy, unspecified | CPT/HCPCS: 99212 ==

== ENCOUNTER 2025-02-08 06:15 | Outpatient (REF) | payer MEDICARE, SELFPAY ==
[2025-02-08 10:05] LABS: MANUAL DIFF FLAG NO
[2025-02-08 10:17] LABS: Basophils Absolute Auto 0.1 X10*3/uL (0.0-0.2); Basophils Percent Auto 1.1 % (0-2); Eosinophils Absolute Auto 0.1 X10*3/uL (0.0-0.4); Eosinophils Percent Auto 1.9 % (0-4); Hematocrit 44.8 % (42.0-52.0); Hemoglobin 14.4 g/dl (14.0-18.0); Imm Gran Abs Auto 0.02 X10*3/uL (0.00-0.03); Imm Gran Pct Auto 0.3 % (0.0-0.4); Lymphocytes Absolute Auto 1.3 X10*3/uL (1.2-4.9); Lymphocytes Percent Auto 17.7 % (20-40); Mean Corpuscular HGB Conc 32.1 g/dl (31.0-36.0); Mean Corpuscular Hemoglobin 31.5 pg (27.0-33.0); Mean Platelet Volume 9.3 fL (9.4-12.4); Monocytes Absolute Auto 0.6 X10*3/uL (0.1-1.2); Monocytes Percent Auto 8.3 % (2-11); Neutrophils Absolute Auto 5.1 x10*3/uL (2.0-8.3); Neutrophils Percent Auto 70.7 % (45-73); Platelet Count 288 X10*3/uL (160-400); Red Blood Count 4.57 X10*6/uL (4.60-5.80); Red Cell Distribution Width 14.5 % (11.0-16.0); White Blood Count 7.2 X10*3/uL (4.8-10.8)
[2025-02-08 10:24] LABS: Estimated Average Glucose 103 mg/dL; Hemoglobin A1C 127.4394 umol/L; Hemoglobin A1c % 5.2 % (<6.0); Total Hemoglobin (HGBA1C) 3778.1748 umol/L
[2025-02-08 10:39] LABS: Alanine Aminotransferase 13 U/L (0-40); Albumin Level 3.9 g/dL (3.5-5.0); Anion Gap 11 (12-20); Aspartate Amino Transferase 28 U/L (5-37); Bilirubin Total 0.5 mg/dL (0.0-1.0); Blood Urea Nitrogen 13 mg/dL (9-16); C Reactive Protein 0.29 mg/dL (< or = 0.50); Calcium 9.5 mg/dL (8.4-10.2); Carbon Dioxide 28 mmol/L (22-29); Chloride 107 mmol/L (96-108); Estimated Glomerular Filt Rate > 60; Glucose Random 84 mg/dL (60-115); Iron 68 mcg/dL (45-160); Percent Iron Saturation 30 % (15-50); Phosphorus 3.3 mg/dL (2.7-4.5); Potassium 4.1 mmol/L (3.3-5.1); Sodium 142 mmol/L (135-145); Total Iron Binding Capacity 225 mcg/dL (228-428); Total Protein 6.8 g/dL (6.5-8.0); Unsaturated Iron Binding 157 ug/dL
[2025-02-08 10:56] LABS: Alkaline Phosphatase 128 U/L (39-117); Erythrocyte Sedimentation Rate 14 MM/HR (0-15); Ferritin 30 ng/mL (20-250)
[2025-02-08 11:01] LABS: Folate 11.4 ng/mL (> or = 4.0); Vitamin B12 355 pg/mL (200-900)
[2025-02-12 15:17] LABS: Vitamin D 25-OH, D2 <4 ng/mL; Vitamin D 25-OH, D3 19 ng/mL; Vitamin D 25-OH, Total 19 ng/mL (30-100)
[2025-02-12 16:29] LABS: Vitamin B1 14 nmol/L (8-30); Vitamin B6 5.1 ng/mL (2.1-21.7)
== END 2025-02-08 06:16 | disposition home or self-care (01) ==
LOC: HO.HMGCLDS 06:15
PROVIDERS: PCP Internal Medicine; Visit Provider Nurse Practitioner Family
DX: G62.9 Polyneuropathy, unspecified (principal); E83.110 Hereditary hemochromatosis; M51.369 Other intervertebral disc degeneration, lumbar region without mention of lumbar back pain or lower extremity pain; E83.39 Other disorders of phosphorus metabolism; R63.6 Underweight; M62.838 Other muscle spasm
CPT/HCPCS: 36415; 80053; 82306; 82550; 82607; 82728; 82746; 83036; 83540; 83735; 84100; 84207; 84425; 84443; 85025; 85652; 86140

== ENCOUNTER 2025-03-18 08:44 | Outpatient (REF) | payer MEDICARE, MEDICAID, SELFPAY ==
[2025-03-18 08:53] LABS: MANUAL DIFF FLAG NO
[2025-03-18 08:55] LABS: Hematocrit 45.1 % (42.0-52.0); Hemoglobin 15.6 g/dl (14.0-18.0); Imm Gran Abs Auto 0.03 X10*3/uL (0.00-0.03); Imm Gran Pct Auto 0.4 % (0.0-0.4); Lymphocytes Absolute Auto 1.3 X10*3/uL (1.2-4.9); Mean Corpuscular HGB Conc 34.6 g/dl (31.0-36.0); Mean Corpuscular Hemoglobin 32.8 pg (27.0-33.0); Mean Corpuscular Volume 94.7 fL (80.0-98.0); NRBC Abs Auto 0.000 X10*3/uL (0.0-0.012); NRBC Pct Auto 0.0 /100WBC (0.0-0.2); Platelet Count 251 X10*3/uL (160-400); Red Blood Count 4.76 X10*6/uL (4.60-5.80); White Blood Count 8.2 X10*3/uL (4.8-10.8)
--- OUTSIDE RECORDS SUMMARY | 2025-03-18 08:58 | XMS_ITS | Patient Health Record ---
Author Organization [facility] Address [address] [place] [phone] Care Team Providers Care Print Production Associate Name Role Phone Stevenson BENNETT, Chantell Primary Care Provider Russell Paz Jr Unavailable Allergies Allergen (clinical drug ingredient) Drug/Non Drug Allergy documented on EMR Reaction Allergy Type Onset Date Status Latex Latex Unknown Allergy Active Levaquin Unknown Drug Allergy Active Reason For Referral No Information Medications Medication SIG (Take, Route, Frequency, Duration) Notes Start Date End Date Status Diclofenac Sodium 1 % External for 25 Active Albuterol Sulfate HFA 108 (90 Base) MCG/ACT Inhalation for 30 Activ e Varenicline Tartrate 0.5 MG X 11 & 1 MG X 42 Oral for 28 Active traMADol HCl 50 MG 1 tablet as needed O rally Once a day Active Symbicort 160-4.5 MCG/ACT Inhalation for 30 Active Gabapentin 300 MG Oral for 10 Active Naproxen 500 MG 1 tablet with food o r milk as needed Orally every 12 hrs Active Immunizations Vaccine Route Administration Date Status Comme nts Influenza Unknown 06/27/2021 Administered Influenza Unknown 05/23/2022 Administered Influenza Unknown 05/28/2023 Administered Influenza Unknown 06/06/2024 Administered Social History Tobacco Use: Social History Observation Description Date Details (start date - stop date) Former Smoker NA - NA Alcohol Screen Question Answer Notes Did you have a drink containing alcohol in the p ast year? No Points 0 Interpretation Negative Tobacco Control (Standard) Question Answer Notes Tobacco use: Former smoker Problems Problem Type SNOMED Code ICD Code Onset Dates Problem Status W/U Status Risk Notes Problem Screening for malignant neoplasm of colon (082569932) Encounter for screening for malignant neoplasm of colon (Z12.11) Active confirmed Problem Constipation (94868020) Constipation (K59.00) Active confirmed Problem 342106089 Liver mass (R16.0) Active confirmed Problem 36505664 Irritable bowel syndrome with constipation and diarrhea (K58.2) Active confirmed Problem 64362228 Change in bowel function (R19.8) Active confirmed Problem 285591158 Adrenal mass (E27.8) Active confirmed Problem Personal history of adenomatous and serrated colon polyps (Z86.0101) Active confirmed Vital Signs Temperature 98.2 degrees Fahrenheit 02/17/2025 Blood pressure diastolic 01 mm Hg 02/17/2025 Height 68 in 02/17/2025 Blood pressure systolic 001 mm Hg 02/17/2025 Weight 108.8 lbs 02/17/2025 BMI 16.54 kg/m2 02/17/2025 Encounters Encounter Location Date Provider Diagnosis [facility] [address] [place] [phone] 02/17/2025 Russell Vital Jr Encounter for screening for malignant neoplasm of colon Z12.11 ; Constipation K59.00 and Personal history of adenomatous and serrated colon polyps Z86.0101 [facility] [address] [place] [phone] 06/03/2024 Russell Vital Jr Liver mass R16.0 and Adrenal mass E27.8 [facility] [address] [place] [phone] 05/12/2024 Russell Vital Jr [facility] [address] [place] [phone] 07/08/2024 Russell Vital Jr Assessments Encounter Date Diagnosis (ICD Code) Assessment Notes Treatment Notes Treatment Clinical Notes Section Notes 02/17/2025 Encounter for screening for malignant neoplasm of colon (ICD-10 - Z12.11) We discussed constipation today. We discussed a high-fiber diet and recommended that he continue to follow this. He is due for follow-up evaluation because of his history of polyps. We discussed risks and benefits of colonoscopy today. He understands these and agrees to proceed. He is advised to stop any NSAIDs 1 week before the procedure. 02/17/2025 Constipation (ICD-10 - K59.00) We discussed constipation today. We discussed a high-fiber diet and recommended that he continue to follow this. He is due for follow-up evaluation because of his history of polyps. We discussed risks and benefits of colonoscopy today. He understands these and agrees to proceed. He is advised to stop any NSAIDs 1 week before the procedure. 06/03/2024 Liver mass (ICD-10 - R16.0) We discussed th e findings on his CT scan. We discussed [...] repeat liver function testing, fibrosis testing, and alpha-fetoprotei n. We will await the reading on his MRI and CT scan of the chest. He is referred back to Dr. Philip. He may ultimately require a biopsy of the liver lesion. We discussed this today. Colonoscopy is on hold wellness evaluation is done. 06/03/2024 Adrenal mass (ICD-10 - E27.8) We discussed th e findings on his CT scan. We discussed [...] repeat liver function testing, fibrosis testing, and alpha-fetoprotei n. We will await the reading on his MRI and CT scan of the chest. He is referred back to Dr. Philip. He may ultimately require a biopsy of the liver lesion. We discussed this today. Colonoscopy is on hold wellness evaluation is done. 02/17/2025 Personal history of adenomatous and serrated colon polyps (ICD-10 - Z86.0101) We discussed constipation today. We discussed a high-fiber diet and recommended that he continue to follow this. He is due for follow-up evaluation because of his history of polyps. We discussed risks and benefits of colonoscopy today. He understands these and agrees to proceed. He is advised to stop any NSAIDs 1 week before the procedure. Plan Of Treatment Pending Test Test Name Order Date LIVER PROFILE 06/03/2024 CBC w/o DIFF 06/03/2024 Alpha Fetoprotein 06/03/2024 Liver Fibrosis Pnl 06/03/2024 Future Test Test Name Order Date COLONOSCOPY 11/06/2023 COLONOSCOPY 02/17/2025 Next Appt Details Provider Name:Russell trimblemilena Cifuentes, 06/15/2025 07:30:00 AM, [address] [facility] , [place], [place], [phone], Insurance Providers Payer Name Payer Address Payer Phone Subscriber Number Group Number Insured Name Patient Relationship to Insured Coverage Start Date Coverage End Date [facility] [address] [address] [place] [address] [id number] KAJAL MORGAN Self - patient is the insured MEDICAID OF [employer] [address] [place] [address] [id number] KAJAL MORGAN Self - patient is the insured Medical (General) History Medical History History ICD Code Peripheral neuropathy Hemochromatosis Hepatitis C status post Harvoni therapy with SVR Ischemic co ischemic colitis, 2006 parti al colectomy Colon polyps, colonoscopy 02/23, negative for polyps, 7 year followup Back pain/test disease with radiculopath y Asthma/COPD Well-differentiated hepatoce llular carcinoma, biopsy 10/03, status post embolization Surgical History Surgery Date(Month/Year) Repair of incarcerated left femoral diane ia 2023 back sugery infusion L3,4,5 2022 Partial colectomy for ischemic colitis 2 006 Hospitalization History Reason Date(Month/Year)
--- OUTSIDE RECORDS SUMMARY | 2025-03-18 08:58 | XMS_ITS | Clinical Summary ---
Author Organization Patient Business Ser [facility] Address [address] [place] [address] Care Team Providers Care Passenger Screener Name Role Phone Ace Bazan MD Primary Care Provider [phone] Allergies Active Allergy Reactions Criticality Noted Date Comments Adhesive Tape-Silicones Dermatitis,Rash 024 Amoxicillin Itching 08/25/2024 Gabapentin Other 08/25/2024 Too strong falls down Levofloxacin Itching 08/25/2024 Medications diclofenac (VOLTAREN) 1 % topical gel Apply 2 g topically 5 times daily Active albuterol HFA (PROVENTIL HFA;VENTOLIN HFA) 108 (90 Base) MCG/ACT inhaler Active predniSONE (DELTASONE) 20 mg tablet Active medical marijuana SMOKING PIPE DRILLER AND THREADER med Active fluticasone propionate (FLONASE) 50 mcg/actuation nasal spray Two sprays per nostril once daily Active Active Problems Problem Noted Date Diagnosed Date Acute vascular insufficiency of intestine ([facility] V24) 08/25/2024 Hereditary hemochromatosis ([facility]/H[facility] V24) 024 Neuropathy 08/25/2024 Open-angle glaucoma of [...] 2024 05/06/2024, 06/20/2023, 05/13/2022, Additional history exists Influenza Vaccine (#1) 2025 4, 05/10/2023, 05/13/2022, Additional history exists Hepatitis C Screening Completed 09/04/2016 Zoster Vaccines Completed 05/13/2021, 12/23/2014 Pneumococcal Vaccine: 50+ Years Completed 06/18/2022, 05/13/2020, 07/20/2015 RSV Immunization Adult Patients Completed 04/25/2023 HIB Vaccines Aged Out No longer eligi [...] , abstracted Anatomical Region Laterality Modality Other us Historical Provider HEALTH MAINTENANCE Final Result * Hepatitis C Screening (09/04/2016) Pathologist [facility] Hepatitis C Screening abstracted us Historical Provider HEALTH MAINTENANCE Final Result from Last 3 Months or Most Recently Relevant to Health Maintenance Insurance [employer] MEDICARE Care Teams Passenger Screener Relationship Specialty Start Date End Date Ace Bazan MD PCP - General 05/19/07
[2025-03-18 09:38] LABS: Alanine Aminotransferase 19 U/L (0-40); Albumin Level 4.4 g/dL (3.5-5.0); Alkaline Phosphatase 115 U/L (39-117); Anion Gap 13 (12-20); Aspartate Amino Transferase 26 U/L (5-37); Blood Urea Nitrogen 15 mg/dL (9-16); Calcium 9.5 mg/dL (8.4-10.2); Carbon Dioxide 27 mmol/L (22-29); Chloride 106 mmol/L (96-108); Estimated Glomerular Filt Rate > 60; Iron 154 mcg/dL (45-160); Percent Iron Saturation 60 % (15-50); Potassium 4.1 mmol/L (3.3-5.1); Sodium 142 mmol/L (135-145); Total Iron Binding Capacity 258 mcg/dL (228-428); Total Protein 7.0 g/dL (6.5-8.0); Unsaturated Iron Binding 104 ug/dL
[2025-03-18 09:41] LABS: Ferritin 31 ng/mL (20-250)
== END 2025-03-18 08:45 | disposition home or self-care (01) ==
LOC: HO.BBR 08:44
PROVIDERS: PCP Internal Medicine; Visit Provider Internal Medicine Medical Oncology
DX: E83.110 Hereditary hemochromatosis (principal)
CPT/HCPCS: 36415; 80053; 82728; 83540; 85014; 85018; 85025; 99195

== ENCOUNTER 2025-03-23 08:36 | Outpatient (AMB) | payer MEDICARE, MEDICAID, SELFPAY ==
--- OUTSIDE RECORDS SUMMARY | 2025-03-23 08:43 | XMS_ITS | Clinical Summary ---
Author Organization Patient Business [facility] Address [address] [place] [address] Care Team Providers Care Protection Agent Name Role Phone Ace Bazan MD Primary Care Provider [phone] Allergies Active Allergy Reactions Criticality Noted Date Comments Adhesive Tape-Silicones Dermatitis,Rash 024 Amoxicillin Itching 08/25/2024 Gabapentin Other 08/25/2024 Too strong falls down Levofloxacin Itching 08/25/2024 Medications diclofenac (VOLTAREN) 1 % topical gel Apply 2 g topically 5 times daily Active albuterol HFA (PROVENTIL HFA;VENTOLIN HFA) 108 (90 Base) MCG/ACT inhaler Active predniSONE (DELTASONE) 20 mg tablet Active medical marijuana BEEF TAGGER med Active fluticasone propionate (FLONASE) 50 mcg/actuation [...] Result * Hepatitis C Screening (09/04/2016) Pathologist [facility] Hepatitis C Screening abstracted us Historical Provider HEALTH MAINTENANCE Final Result from Last 3 Months or Most Recently Relevant to Health Maintenance Insurance [place] [address] Care Teams Protection Agent Relationship Specialty Start Date End Date Ace Bazan MD PCP - General 05/19/07
--- OUTSIDE RECORDS SUMMARY | 2025-03-23 08:43 | XMS_ITS | Patient Health Record ---
Author Organization [facility] Address [address] [place] [phone] Care Team Providers Care Tumbler Drier Operator Name Role Phone Stevenson BENNETT, Chantell [...] Problem Screening for malignant neoplasm of colon (752125723) Encounter for screening for malignant neoplasm of colon (Z12.11) Active confirmed Problem Constipation (53779690) Constipation (K59.00) Active confirmed Problem 917497426 Liver mass (R16.0) Active confirmed Problem 18188655 Irritable bowel syndrome with constipation and diarrhea (K58.2) Active confirmed Problem 17442692 Change in bowel function (R19.8) Active confirmed Problem 030552315 Adrenal mass (E27.8) Active confirmed Problem Personal history of adenomatous and serrated colon polyps (Z86.0101) Active confirmed Vital Signs Temperature 98.2 degrees Fahrenheit 02/17/2025 Blood pressure diastolic 01 mm Hg 02/17/2025 Height 68 in 02/17/2025 Blood pressure systolic 001 mm Hg 02/17/2025 Weight 108.8 lbs 02/17/2025 BMI 16.54 kg/m2 02/17/2025 Encounters Encounter Location Date Provider Diagnosis [facility] [address] [place] [phone] 06/03/2024 Russell Vital Jr Liver mass R16.0 and Adrenal mass E27.8 [facility] [address] [place] [phone] 02/17/2025 Russell Vital Jr Encounter for screening for malignant neoplasm of colon Z12.11 ; Constipation K59.00 and Personal history of adenomatous and serrated colon polyps Z86.0101 [facility] [address] [place] [phone] 05/12/2024 Russell Vital Jr [facility] [address] [place] [phone] 07/08/2024 Russell Vital Jr Assessments Encounter Date [...] on hold wellness evaluation is done. 02/17/2025 Encounter for screening for malignant neoplasm [...] NSAIDs 1 week before the procedure. 02/17/2025 Personal history of adenomatous and serrated [...] Name:Russell trimblemilena Cifuentes, 06/15/2025 07:30:00 AM, [address] [facility] , [place], [place], [phone], Insurance Providers Payer Name Payer Address Payer Phone Subscriber Number Group Number Insured Name Patient Relationship to Insured Coverage Start Date Coverage End Date [facility] [address] [address] [place] [address] [id number] KAJAL MORGAN Self - patient is the insured MEDICAID OF [employer] [address] [place] [phone] [id number] KAJAL MORGAN Self - patient is the [...]
[2025-03-23 09:11] VITALS: BP 109/62; PULSE 80; O2SAT 97; BMI 16.1
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
== END 2025-03-23 09:32 | disposition home or self-care (01) ==
PROVIDERS: PCP Internal Medicine; Visit Provider Internal Medicine
DX: J44.89 Other specified chronic obstructive pulmonary disease (principal); R91.1 Solitary pulmonary nodule; R16.0 Hepatomegaly, not elsewhere classified; E83.110 Hereditary hemochromatosis
CPT/HCPCS: 99213

== ENCOUNTER → 2025-03-23 08:36 | Outpatient (BNVA) | payer MEDICARE, SELFPAY | PROVIDERS: PCP Internal Medicine; Visit Provider Internal Medicine | DX: J44.89 Other specified chronic obstructive pulmonary disease (principal); R91.1 Solitary pulmonary nodule; R16.0 Hepatomegaly, not elsewhere classified; E83.110 Hereditary hemochromatosis; Z87.891 Personal history of nicotine dependence; Z79.899 Other long term (current) drug therapy | CPT/HCPCS: 99212 ==

== ENCOUNTER 2025-05-20 08:51 | Outpatient (REF) | payer MEDICARE, MEDICAID, SELFPAY ==
--- OUTSIDE RECORDS SUMMARY | 2024-06-16 03:30 | XMS_ITS ---
Author Organization [facility] Address [address] [place] [address] Care Team Providers Care Senior Quality Control Technician Name Role Phone Cahntell Gamino MD Primary Care Provider Russell Paz Jr REASON FOR VISIT screening Encounters Encounter Location Date Provider Diagnosis [facility] [place] [address] [place] [id number] 06/16/2024 Russell Vital Jr Plan Of Treatment Next Appt Details Provider Name:Russell taylor Jr, 06/15/2025 07:30:00 AM, [address] [place] [address], [phone], Progress Notes * KAJAL MORGAN WDOB:[birth year] (69 yo M)Acc No.[id number]:06/16/2024 COLON WITH MAC Patient: KAJAL VERA Provider: Bull Vital MD :1955 A ge:69 Y S ex:Male Date:06/16/2024 Address:[place] [facility] Pcp:hCantell Gamino MD Subjective: * Chief Complaints: * [...] Date: 1 Generated for Chaim naqvi/Hammad/Fide on: 0 05/20/2025 09:58 AM EDT
[2025-05-20 08:59] LABS: MANUAL DIFF FLAG NO
[2025-05-20 09:02] LABS: Hematocrit 45.3 % (42.0-52.0); Hemoglobin 15.9 g/dl (14.0-18.0); Imm Gran Abs Auto 0.02 X10*3/uL (0.00-0.03); Imm Gran Pct Auto 0.3 % (0.0-0.4); Lymphocytes Absolute Auto 1.2 X10*3/uL (1.2-4.9); Mean Corpuscular HGB Conc 35.1 g/dl (31.0-36.0); Mean Corpuscular Hemoglobin 33.3 pg (27.0-33.0); Mean Corpuscular Volume 95.0 fL (80.0-98.0); NRBC Abs Auto 0.000 X10*3/uL (0.0-0.012); NRBC Pct Auto 0.0 /100WBC (0.0-0.2); Platelet Count 251 X10*3/uL (160-400); Red Blood Count 4.77 X10*6/uL (4.60-5.80); White Blood Count 7.1 X10*3/uL (4.8-10.8)
--- OUTSIDE RECORDS SUMMARY | 2025-05-20 09:58 | XMS_ITS | Clinical Summary ---
Author Organization Patient Business Ser [facility] Address [address] [place] [address] Care Team Providers Care Maintenance Helper Utility Engineer Name Role Phone Ace Bazan MD Primary Care Provider [phone] Allergies Active Allergy Reactions Criticality Noted Date Comments Adhesive Tape-Silicones Dermatitis,Rash 024 Amoxicillin Itching 08/25/2024 Gabapentin Other 08/25/2024 Too strong falls down Levofloxacin Itching 08/25/2024 Medications diclofenac (VOLTAREN) 1 % topical gel Apply 2 g topically 5 times daily Active albuterol HFA (PROVENTIL HFA;VENTOLIN HFA) 108 (90 Base) MCG/ACT inhaler Active predniSONE (DELTASONE) 20 mg tablet Active medical marijuana DIRECTOR OF REVENUE med Active fluticasone propionate (FLONASE) 50 mcg/actuation nasal spray Two sprays per nostril once daily Active Active Problems Problem Noted Date Diagnosed Date Acute vascular insufficiency of intestine ([facility]/H CC V24) 08/25/2024 Hereditary hemochromatosis ([facility]/HCC V24) 024 Neuropathy 08/25/2024 Open-angle glaucoma [...] Comments Abdominal Aortic Aneurysm (AAA) Screen 04/07/2020 Falls Risk Assessment 04/07/2020 Medicare Annual Wellness Visit 04/07/2020 Social Influencers of Health Screening 04/07/2020 DTaP,Tdap,and Td Vaccines (2 - Td or Tdap) 06/05/2022 06/05/2012 Cholesterol Screening (Lipid Panel) 08/12/2023 08/12/2018 Colorectal Cancer Screening: Colonoscopy 02/16/2024 02/15/2017 Depression Screening 09/09/2024 COVID-19 Vaccine (8 - Pfizer risk season) 2025 05/06/2024, 06/20/2023, 05/13/2022, Additional history exists Influenza [...] Final Result * Hepatitis C Screening (09/04/2016) Hepatitis C Screening abstracted us Historical Provider HEALTH MAINTENANCE Final Result from Last 3 Months or Most Recently Relevant to Health Maintenance Insurance [employer] MEDICARE Care Teams Maintenance Helper Utility Engineer Relationship Specialty Start Date End Date Ace Bazan MD PCP - General 05/19/07
--- OUTSIDE RECORDS SUMMARY | 2025-05-20 09:58 | XMS_ITS | Patient Health Record ---
Author Organization [facility] Address [address] [place] [address] Care Team Providers Care Thermoplastic Technician Name Role Phone Stevenson BENNETT, Chantell Primary Care Provider Russell Paz Jr Unavailable [phone] Allergies Allergen (clinical drug ingredient) Drug/Non Drug [...] Problem Screening for malignant neoplasm of colon (031101230) Encounter for screening for malignant neoplasm of colon (Z12.11) Active confirmed Problem Constipation (11990318) Constipation (K59.00) Active confirmed Problem 977458977 Liver mass (R16.0) Active confirmed Problem 05937731 Irritable bowel syndrome with constipation and diarrhea (K58.2) Active confirmed Problem 07890448 Change in bowel function (R19.8) Active confirmed Problem 526279606 Adrenal mass (E27.8) Active confirmed Problem Personal history of adenomatous and serrated colon polyps (Z86.0101) Active confirmed Vital Signs Temperature 98.2 degrees Fahrenheit 02/17/2025 Blood pressure diastolic 01 mm Hg 02/17/2025 Height 68 in 02/17/2025 Blood pressure systolic 001 mm Hg 02/17/2025 Weight 108.8 lbs 02/17/2025 BMI 16.54 kg/m2 02/17/2025 Encounters Encounter Location Date Provider Diagnosis [facility] [address] [place] [phone] 06/03/2024 Russell Vital Jr Liver mass R16.0 and Adrenal mass E27.8 [facility] [address] [place] [address] 02/17/2025 Russell Vital Jr Encounter for screening for malignant neoplasm of colon Z12.11 ; Constipation K59.00 and Personal history of adenomatous and serrated colon polyps Z86.0101 [facility] [address] [place] [id number] 07/08/2024 Russell Vital Jr Assessments Encounter Date [...] Provider Name:Russell trimblemilena Cifuentes, 06/15/2025 07:30:00 AM, [address] [place] [address] , [place], [place], [id number], Insurance Providers Payer Name Payer Address Payer Phone Subscriber Number Group Number Insured Name Patient Relationship to Insured Coverage Start Date Coverage End Date [facility] [address] [address] [place] [address] [id number] KAJAL MORGAN Self - patient is the insured MEDICAID [facility] [employer] [facility] [address] [place] [address] [id number] KAJAL MORGAN Self - patient is the [...]
--- OUTSIDE RECORDS SUMMARY | 2025-05-20 09:58 | XMS_ITS | Clinical Summary ---
Author Organization [facility] Address [address] [place] [address] Phone Care Team Providers Care Charter And Tour Bus Driver Name Role Phone Chantell Gamino MD Primary Care Provider Ace Bazan MD Unavailable [phone] Social History Tobacco Use Types Packs/Day Years Used Date Smoking Tobacco: Never Assessed Education Answer Date Recorded Are you interested in more education? Not on andreina e 09/25/2024 Are you concerned about learning? Not on file 09/25/2024 No 09/25/2024 No 09/25/2024 Digital Access Answer Date Recorded No 09/25/2024 No 09/25/2024 Reliable internet access at home? Not on file 09/25/2024 Device with a working camera? Not on file Sex and Gender Information Value Date Recorded Sex Assigned at Not on file Legal Sex Male 1:31 PM EST Gender Identity Not on file Sexual Orientation Not on file Last Filed Vital Signs Vital Sign Reading Time Taken Comments Blood Pressure 103/70 12/15/2014 11:32 AM EDT Pulse - - Temperature - - Respiratory Rate - - Oxygen Saturation - - Inhaled Oxygen Concentration - - Weight 54.3 kg (119 lb 12.8 oz) 015 11:32 AM EDT Height 172.7 cm (5' 8 ) 12/15/2014 11:3 2 AM EDT Body Mass Index 18.22 12/15/2014 11:32 AM EDT Plan of Treatment Not on file Medical Devices Not on file Insurance [facility] MEDICARE REPLACEMENT MEDICARE REPLACEMENT [facility] MEDICARE [place] [address] [place] [address] [place] [address] MEDICARE REPLACEMENT MEDICARE PART A & B MEDICARE PART A & B MEDICARE PART A & B MEDICARE PART A & B MEDICARE PART A & B MEDICARE PART A & B MEDICARE PART A & B MEDICARE PART A & B MEDICARE PART A & B Care Teams Charter And Tour Bus Driver Relationship Specialty Start Date End Date Chantell Gamino MD [address] [place] [address] [place] [id number] PCP - General 09/25/24 Ace Bazan MD [address] [place], [place] [address], [place] [address] 09/25/24 Additional Source Comments The information contained in this document represents components of the legal health record. It is not the complete legal health record.[facility]
[2025-05-20 10:02] LABS: Alanine Aminotransferase 15 U/L (0-40); Albumin Level 4.5 g/dL (3.5-5.0); Alkaline Phosphatase 110 U/L (39-117); Anion Gap 15 (12-20); Aspartate Amino Transferase 24 U/L (5-37); Blood Urea Nitrogen 10 mg/dL (9-16); Calcium 9.5 mg/dL (8.4-10.2); Carbon Dioxide 27 mmol/L (22-29); Chloride 108 mmol/L (96-108); Estimated Glomerular Filt Rate > 60; Iron 152 mcg/dL (45-160); Percent Iron Saturation 59 % (15-50); Potassium 3.8 mmol/L (3.3-5.1); Sodium 146 mmol/L (135-145); Total Iron Binding Capacity 256 mcg/dL (228-428); Total Protein 6.9 g/dL (6.5-8.0); Unsaturated Iron Binding 104 ug/dL
[2025-05-20 10:21] LABS: Ferritin 26 ng/mL (20-250)
== END 2025-05-20 08:52 | disposition home or self-care (01) ==
LOC: HO.BBR 08:51
PROVIDERS: PCP Internal Medicine; Visit Provider Internal Medicine Medical Oncology
DX: E83.110 Hereditary hemochromatosis (principal)
CPT/HCPCS: 36415; 80053; 82728; 83540; 85025

== ENCOUNTER 2025-05-28 12:24 | Outpatient (AMB) | payer MEDICARE, MEDICAID, SELFPAY ==
--- OUTSIDE RECORDS SUMMARY | 2024-06-16 03:30 | XMS_ITS ---
Author Organization [facility] Address [address] [place] [address] Care Team Providers Care Cook Night Name Role Phone Stevenson BENNETT, Chantell Primary Care Provider Russell Paz Jr [phone] REASON FOR VISIT screening Encounters Encounter Location Date Provider Diagnosis [facility] [place] [address] [place] [id number] 06/16/2024 Russell Vital Jr Plan Of Treatment No Information Progress Notes * KAJAL MORGAN WDOB:[birth year] (69 yo M)Acc No.[id number]:06/16/2024 COLON WITH MAC Patient: KAJAL VERA Provider: Bull Vital MD :1955 A ge:69 Y S ex:Male Date:06/16/2024 [facility] Pcp:Chantell Gamino MD Subjective: * Chief Complaints: [...] Bull Vital MD Date: 1 Generated for Goldyi donya/Fayoditg/eTransmitting on: 0 05/28/2025 12:29 PM EDT
[2025-05-28 12:29] VITALS: BP 90/58; PULSE 93; TEMP 36.7; O2SAT 96; BMI 15.7
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
--- OUTSIDE RECORDS SUMMARY | 2025-05-28 12:29 | XMS_ITS | Clinical Summary ---
Author Organization Patient Business Ser [facility] Address [address] [place] [address] Care Team Providers Care Associate Store Leader Name Role Phone Aec Bazan MD Primary Care Provider [phone] Allergies Active Allergy Reactions Criticality Noted Date Comments Adhesive Tape-Silicones Dermatitis,Rash 024 Amoxicillin Itching 08/25/2024 Gabapentin Other 08/25/2024 Too strong falls down Levofloxacin Itching 08/25/2024 Medications diclofenac (VOLTAREN) 1 % topical gel Apply 2 g topically 5 times daily Active albuterol HFA (PROVENTIL HFA;VENTOLIN HFA) 108 (90 Base) MCG/ACT inhaler Active predniSONE (DELTASONE) 20 mg tablet Active medical marijuana VAMP THROATER med Active fluticasone propionate (FLONASE) 50 mcg/actuation nasal spray Two sprays per nostril once daily Active Active Problems Problem Noted Date Diagnosed Date Acute vascular insufficiency of intestine ([facility]/H CC V24) 08/25/2024 Hereditary hemochromatosis ([facility]/HCC V24) 024 Neuropathy 08/25/2024 Open-angle glaucoma of [...] Maintenance Insurance [employer] MEDICARE Care Teams Associate Store Leader Relationship Specialty Start Date End Date Ace Bazan MD PCP - General 05/19/07
--- OUTSIDE RECORDS SUMMARY | 2025-05-28 12:29 | XMS_ITS | Clinical Summary ---
Author Organization [facility] Address [address] [place] [phone] Phone Care Team Providers Care Lens Edge Grinder Machine Name Role Phone Chantell Gamino MD Primary Care Provider Ace Bazan MD Unavailable [phone] Social History Tobacco Use Types Packs/Day Years [...] file Medical Devices Not on file Insurance [facility] MEDIC[facility] REPLACEMENT MEDICARE REPLACEMENT [facility] MEDICARE [place]EMENT [address] [place] [address] [place] [address] MEDICARE REPLACEMENT MEDICARE PART A & B MEDICARE PART A & B MEDICARE PART A & B MEDICARE PART A & B MEDICARE PART A & B MEDICARE PART A & B MEDICARE PART A & B MEDICARE PART A & B MEDICARE PART A & B Care Teams Lens Edge Grinder Machine Relationship Specialty Start Date End Date Chantell Gamino MD [address] [place] [address] [place] [id number] PCP - General 09/25/24 Ace Bazan MD [address] [place], [place] [address] [address] 09/25/24 Additional Source Comments The information contained in this document represents components of the legal health record. It is not the complete legal health record.[facility]
== END 2025-05-28 13:06 | disposition home or self-care (01) ==
PROVIDERS: PCP Internal Medicine; Visit Provider Physician Assistant
DX: R19.7 Diarrhea, unspecified (principal)

== ENCOUNTER → 2025-05-28 12:24 | Outpatient (BNVA) | payer MEDICARE, MEDICAID, SELFPAY | PROVIDERS: PCP Internal Medicine; Visit Provider Physician Assistant | DX: J44.89 Other specified chronic obstructive pulmonary disease (principal); R19.7 Diarrhea, unspecified; Z99.81 Dependence on supplemental oxygen | CPT/HCPCS: 99212 ==

== ENCOUNTER 2025-06-02 10:58 | Outpatient (AMB) | payer MEDICARE, MEDICAID, SELFPAY ==
--- OUTSIDE RECORDS SUMMARY | 2024-06-16 03:30 | XMS_ITS ---
Author Organization [facility] Address [address] [place] [address] Care Team Providers Care Assembly Mechanic Name Role Phone Stevenson BENNETT, Chantell Primary Care Provider Russell Paz Jr [phone] REASON FOR VISIT screening Encounters Encounter Location Date Provider Diagnosis [facility] [place] [address] [place] [id number] 06/16/2024 Russell Vital Jr Plan Of Treatment No Information Progress Notes * KAJAL MORGAN WDOB:[birth year] (69 yo M)Acc No.[id number]:06/16/2024 COLON WITH MAC Patient: KAJAL VERA Provider: Bull Vital MD :1955 A ge:69 Y S ex:Male Date:06/16/2024 [id number] Pcp:Chantell Gamino MD Subjective: * Chief Complaints: [...] 1 Generated for Goldyi donya/Fayoditg/eTransmitting on: 0 06/02/2025 02:03 PM EDT
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
[2025-06-02 11:04] VITALS: BP 110/78; PULSE 77; RESP 16; TEMP 36.6; O2SAT 100; BMI 16.0
--- OUTSIDE RECORDS SUMMARY | 2025-06-02 14:03 | XMS_ITS | Clinical Summary ---
Author Organization Located Within [facility] Address [address] [place] [address] Phone Care Team Providers Care Police Radio Dispatcher Name Role Phone Chantell Gamino MD Primary Care Provider Ace Bazan MD Unavailable [phone] Social History Tobacco Use Types Packs/Day Years [...] file Medical Devices Not on file Insurance [facility] MEDICARE REPLACEMENT MEDICARE REPLACEMENT [facility] MEDICARE [place] [address] [place] [address] [place] [address] MEDICARE REPLACEMENT MEDICARE PART A & B MEDICARE PART A & B MEDICARE PART A & B MEDICARE PART A & B MEDICARE PART A & B MEDICARE PART A & B MEDICARE PART A & B MEDICARE PART A & B MEDICARE PART A & B Care Teams Police Radio Dispatcher Relationship Specialty Start Date End Date Chantell Gamino MD [address] [place] [address] [place] [address] PCP - General 09/25/24 Ace Bazan MD [address] [place], [place] [address] [address] 09/25/24 Additional Source Comments The information contained in this document represents components of the legal health record. It is not the complete legal health record.Located Within [facility]
--- OUTSIDE RECORDS SUMMARY | 2025-06-02 14:03 | XMS_ITS | Clinical Summary ---
Author Organization Patient Business Ser [facility] Address [address] [place] [address] Care Team Providers Care Architect Internship Name Role Phone Ace Bazan MD Primary Care Provider [phone] Allergies Active Allergy Reactions Criticality Noted Date Comments Adhesive Tape-Silicones Dermatitis,Rash 024 Amoxicillin Itching 08/25/2024 Gabapentin Other 08/25/2024 Too strong falls down Levofloxacin Itching 08/25/2024 Medications diclofenac (VOLTAREN) 1 % topical gel Apply 2 g topically 5 times daily Active albuterol HFA (PROVENTIL HFA;VENTOLIN HFA) 108 (90 Base) MCG/ACT inhaler Active predniSONE (DELTASONE) 20 mg tablet Active medical marijuana [employer] med Active fluticasone propionate (FLONASE) 50 mcg/actuation nasal spray Two sprays per nostril once daily Active Active Problems Problem Noted Date Diagnosed Date Acute vascular insufficiency of intestine ([facility]/H CC V24) 08/25/2024 Hereditary hemochromatosis ([facility]/HCC V24) 024 Neuropathy 08/25/2024 Open-angle glaucoma of [...] Maintenance Insurance [employer] MEDICARE Care Teams Architect Internship Relationship Specialty Start Date End Date Ace Bazan MD PCP - General 05/19/07
--- OUTSIDE RECORDS SUMMARY | 2025-06-02 14:03 | XMS_ITS | Patient Health Record ---
Author Organization [facility] Address [address] [place] [address] Care Team Providers Care Contract Graphic Designer Name Role Phone Stevenson BENNETT, Chantell Primary Care Provider Russell Paz Jr Unavailable [phone] Allergies Allergen (clinical drug ingredient) Drug/Non Drug [...] Problem Screening for malignant neoplasm of colon (623577716) Encounter for screening for malignant neoplasm of colon (Z12.11) Active confirmed Problem Constipation (34174453) Constipation (K59.00) Active confirmed Problem 830508562 Liver mass (R16.0) Active confirmed Problem 78786836 Irritable bowel syndrome with constipation and diarrhea (K58.2) Active confirmed Problem 80413073 Change in bowel function (R19.8) Active confirmed Problem 395634704 Adrenal mass (E27.8) Active confirmed Problem Personal history of adenomatous and serrated colon polyps (Z86.0101) Active confirmed Vital Signs Temperature 98.2 degrees Fahrenheit 02/17/2025 Blood pressure diastolic 01 mm Hg 02/17/2025 Height 68 in 02/17/2025 Blood pressure systolic 001 mm Hg 02/17/2025 Weight 108.8 lbs 02/17/2025 BMI 16.54 kg/m2 02/17/2025 Encounters Encounter Location Date Provider Diagnosis [facility] [address] [place] [phone] 06/03/2024 Russell Vital Jr Liver mass R16.0 and Adrenal mass E27.8 [facility] [address] [place] [phone] 02/17/2025 Russell Vital Jr Encounter for screening for malignant neoplasm of colon Z12.11 ; Constipation K59.00 and Personal history of adenomatous and serrated colon polyps Z86.0101 [facility] [address] [place] [phone] 07/08/[address] [facility] [address] [place] [phone] 05/25/2025 Russell Vital Jr Assessments Encounter Date Diagnosis [...] Name Order Date COLONOSCOPY 11/06/2023 COLONOSCOPY 02/17/2025 Insurance Providers Payer Name Payer Address Payer Phone Subscriber Number Group Number Insured Name Patient Relationship to Insured Coverage Start Date Coverage End Date [facility] [address] [address] [place] [address] [id number] KAJAL MORGAN Self - patient is the insured [facility] [address] [place] [address] [id number] KAJAL MORGAN Self - patient is the [...]
== END 2025-06-02 11:54 | disposition home or self-care (01) ==
PROVIDERS: PCP Internal Medicine; Visit Provider Physician Assistant Medical
DX: R19.7 Diarrhea, unspecified (principal)

== ENCOUNTER → 2025-06-02 10:58 | Outpatient (BNVA) | payer MEDICARE, MEDICAID, SELFPAY | PROVIDERS: PCP Internal Medicine; Visit Provider Physician Assistant Medical | DX: R19.7 Diarrhea, unspecified (principal) | CPT/HCPCS: 99212 ==

== ENCOUNTER 2025-06-03 10:00 | Outpatient (REF) | payer MEDICARE, MEDICAID, SELFPAY ==
[2025-06-03 14:57] LABS: E. coli EAEC Not Detected (Not Detect.); E. coli EPEC Not Detected (Not Detect.); E. coli ETEC Not Detected (Not Detect.); E. coli STEC Not Detected (Not Detect.); Shigella sp./EIEC Not Detected (Not Detect.)
== END 2025-06-03 10:01 | disposition home or self-care (01) ==
LOC: HO.HMGCLNP 10:00
PROVIDERS: Visit Provider Physician Assistant Medical
DX: R19.7 Diarrhea, unspecified (principal)
CPT/HCPCS: 87507

== ENCOUNTER 2025-06-17 13:36 | Outpatient (AMB) | payer MEDICARE, MEDICAID, SELFPAY ==
[2025-06-17 13:38] VITALS: BP 98/72; PULSE 78; RESP 16; TEMP 36.7; O2SAT 93; BMI 15.5
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
== END 2025-06-17 14:35 | disposition home or self-care (01) ==
LOC: HO.HMCC 13:37
PROVIDERS: PCP Internal Medicine; Visit Provider Internal Medicine
DX: R19.7 Diarrhea, unspecified (principal); T50.Z95A Adverse effect of other vaccines and biological substances, initial encounter

== ENCOUNTER → 2025-06-17 13:36 | Outpatient (BNVA) | payer MEDICARE, MEDICAID, SELFPAY | PROVIDERS: PCP Internal Medicine; Visit Provider Internal Medicine | DX: E66.3 Overweight (principal); R19.7 Diarrhea, unspecified; K90.829 Short bowel syndrome, unspecified; T50.Z95A Adverse effect of other vaccines and biological substances, initial encounter; Z68.1 Body mass index [BMI] 19.9 or less, adult | CPT/HCPCS: 99212 ==

== ENCOUNTER 2025-06-24 15:42 | Outpatient (AMB) | payer MEDICARE, SELFPAY ==
--- OUTSIDE RECORDS SUMMARY | 2024-06-16 03:30 | XMS_ITS ---
Author Organization [facility] Address [address] [place] [address] Care Team Providers Care Assembler Erector Name Role Phone Chantell Gamino MD Primary Care Provider Russell Paz Jr [phone] REASON FOR VISIT screening Encounters Encounter Location Date Provider Diagnosis [facility] [place] [address] [place] [id number] 06/16/2024 Russell Vital Jr Plan Of Treatment Next Appt Details Provider Name:Russell taylor Jr, 09/30/2025 02:35:00 PM, [address] [place] [address], Suite [facility], [place], [address], Progress Notes * KAJAL MORGAN WDOB:[birth year] (70 yo M)Acc No.[id number]:06/16/2024 COLON WITH MAC Patient: KAJAL VERA Provider: Bull Vital MD :1955 A ge:69 Y S ex:Male Date:06/16/2024 Address:[address] [facility] Pcp:Chantell Gamino MD Subjective: * Chief Complaints: [...] MD Date: Generated for Chaim naqvi/Hammad/Fide on: 07:25 PM EDT
--- OUTSIDE RECORDS SUMMARY | 2025-06-15 03:30 | XMS_ITS ---
Author Organization [facility] Address [address] [place] [address] Care Team Providers Care Hvac Commercial Salesperson Name Role Phone Stevenson BENNETT, Chantell Primary Care Provider Sam Vital Jr, Russell Jeffery REASON FOR VISIT screening, hx adenomatous , serrated polyp Encounters Encounter Location Date Provider Diagnosis [facility] [place] [address] [place] [phone] 06/15/2025 Russell Vital Jr Plan Of Treatment Next Appt Details Provider Name:Russell taylor Jr, 09/30/2025 02:35:00 PM, [address] [place] [address], [address] [facility], [place], [address], Progress Notes * KAJAL MORGAN WDOB:[birth year] (70 yo M)Acc No.[id number]:06/15/2025 COLON WITH MAC Patient: KAJAL VERA Provider: Bull Vital MD :1955 A ge:70 Y S ex:Male Date:06/15/2025 Address:[place] Pcp:Chantell Gamino MD Subjective: * Chief Complaints: [...]
[2025-06-24 16:03] VITALS: BP 98/66; PULSE 63; RESP 17; TEMP 36.7; O2SAT 98; BMI 15.5
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
--- OUTSIDE RECORDS SUMMARY | 2025-06-24 19:26 | XMS_ITS | Clinical Summary ---
Author Organization Patient Business Ser [facility] Address [address] [place] [address] Care Team Providers Care Eclectic Doctor Name Role Phone Ace Bazan MD Primary Care Provider [phone] Allergies Active Allergy Reactions Criticality Noted Date Comments Adhesive Tape-Silicones Dermatitis,Rash 024 Amoxicillin Itching 08/25/2024 Gabapentin Other 08/25/2024 Too strong falls down Levofloxacin Itching 08/25/2024 Medications diclofenac (VOLTAREN) 1 % topical gel Apply 2 g topically 5 times daily Active albuterol HFA (PROVENTIL HFA;VENTOLIN HFA) 108 (90 Base) MCG/ACT inhaler Active predniSONE (DELTASONE) 20 mg tablet Active medical marijuana EVENT STAFF MEMBER med Active fluticasone propionate (FLONASE) 50 mcg/actuation nasal spray Two sprays per nostril once daily Active Active Problems Problem Noted Date Diagnosed Date Acute vascular insufficiency of intestine ([facility]/H CC V24) 08/25/2024 Hereditary hemochromatosis ([facility] V24) 024 Neuropathy 08/25/2024 Open-angle glaucoma of both eyes 08/25/2024 Underweight 08/25/2024 Vascular insufficiency of intestine (CMS/HCC V24 ) 08/25/2024 Immunizations Immunization Administration Dates Next Due Influenza Quadravalent, 0.5m [...] Maintenance Insurance [employer] MEDICARE Care Teams Eclectic Doctor Relationship Specialty Start Date End Date Ace Bazan MD PCP - General 05/19/07
--- OUTSIDE RECORDS SUMMARY | 2025-06-24 19:26 | XMS_ITS | Clinical Summary ---
Author Organization [facility] Address [address] [place] [address] Phone Care Team Providers Care Welder Production Line Gas Name Role Phone Chantell Gamino MD Primary Care Provider Ace Bazan MD Unavailable [phone] Social History Tobacco Use Types Packs/Day Years [...] file Medical Devices Not on file Insurance [facility] MEDICARE REPLACEMENT MEDICARE REPLACEMENT [facility] MEDICARE [place]PLAC[place] [place] [address] [place] [address] [place] [address] MEDICARE REPLACEMENT MEDICARE PART A & B MEDICARE PART A & B MEDICARE PART A & B MEDICARE PART A & B MEDICARE PART A & B MEDICARE PART A & B MEDICARE PART A & B MEDICARE PART A & B MEDICARE PART A & B Care Teams Welder Production Line Gas Relationship Specialty Start Date End Date Chatnell Gamino MD [address] [place] [address] [place] [address] PCP - General 09/25/24 Ace Bazan MD [address] [place], [place] [address] [address] 09/25/24 Additional Source Comments The information contained in this document represents components of the legal health record. It is not the complete legal health record.[facility]
--- OUTSIDE RECORDS SUMMARY | 2025-06-24 19:26 | XMS_ITS | Patient Health Record ---
Author Organization [facility] Address [address] [place] [phone] Care Team Providers Care Medical Staff Specialist Name Role Phone Stevenson BENNETT, Chantell Primary Care Provider Russell Paz Jr Unavailable [phone] Allergies Allergen (clinical drug ingredient) Drug/Non Drug Allergy documented on EMR Reaction Allergy Type Onset Date Status Latex Latex Unknown Allergy Active Levaquin Unknown Drug Allergy Active Reason For Referral No Information Medications Medication SIG (Take, Route, Frequency, Duration) Notes Start Date End Date Status Diclofenac Sodium 1 % External; Duration: 25 Active Albuterol Sulfate HFA 108 (90 Base) MCG/ACT Inhalation; Duration: 30 Active Varenicline Tartrate 0.5 MG X 11 & 1 MG X 42 Oral; Duration: 28 Activ e traMADol HCl 50 MG 1 tablet as needed O rally Once a day Active Symbicort 160-4.5 MCG/ACT Inhalation; Duration: 30 Active Gabapentin 300 MG Oral; Duration: 10 Active Naproxen 500 MG 1 tablet [...] Problem Screening for malignant neoplasm of colon (201920734) Encounter for screening for malignant neoplasm of colon (Z12.11) Active confirmed Problem Constipation (08728870) Constipation (K59.00) Active confirmed Problem Liver mass (542939925) Liver mass (R16.0) Active confirmed Problem Irritable bowel syndrome (27231474) Irritable bowel syndrome with constipation and diarrhea (K58.2) Active confirmed Problem Altered bowel function (19213641) Change in bowel function (R19.8) Active confirmed Problem Adrenal mass (260194917) Adrenal mass (E27.8) Active confirmed Problem Personal history of adenomatous and serrated colon polyps (Z86.0101) Active confirmed Vital Signs Temperature 98.2 degrees Fahrenheit 02/17/2025 Blood pressure diastolic 01 mm Hg 02/17/2025 Height 68 in 02/17/2025 Blood pressure systolic 001 mm Hg 02/17/2025 Weight 108.8 lbs 02/17/2025 BMI 16.54 kg/m2 02/17/2025 Encounters Encounter Location Date Provider Diagnosis [facility] [address] [place] [phone] 02/17/2025 Russell Vital Jr Encounter for screening for malignant neoplasm of colon Z12.11 ; Constipation K59.00 and Personal history of adenomatous and serrated colon polyps Z86.0101 [facility] [address] [place] [phone] 07/08/2024 Russell Vital Jr [facility] [address] [place] [phone] 05/25/2025 Russell Vital Jr Assessments Encounter Date [...] COLONOSCOPY 02/17/2025 Next Appt Details Provider Name:Russell taylor Jr, 09/30/2025 02:35:00 PM, [address] [place] [address], [address], [place], [address], Insurance Providers Payer Name Payer Address Payer Phone Subscriber Number Group Number Insured Name Patient Relationship to Insured Coverage Start Date Coverage End Date [facility] [address] [address] [place] [address] [id number] KAJAL MORGAN Self - patient is the insured MEDICAID OF [facility] [address] [place] [address] [id number] KAJAL MORGAN Self - patient is the [...] diane ia 2023 back sugery infusion L3,4,5 2023 Partial colectomy for ischemic colitis 2 006 Hospitalization History Reason Date(Month/Year)
== END 2025-06-24 16:49 | disposition home or self-care (01) ==
LOC: HO.HMCC 15:43
PROVIDERS: PCP Internal Medicine; Visit Provider Internal Medicine
DX: Z00.01 Encounter for general adult medical examination with abnormal findings (principal); J44.89 Other specified chronic obstructive pulmonary disease; M96.1 Postlaminectomy syndrome, not elsewhere classified; R63.6 Underweight; M85.89 Other specified disorders of bone density and structure, multiple sites; E55.9 Vitamin D deficiency, unspecified; E83.110 Hereditary hemochromatosis; K52.9 Noninfective gastroenteritis and colitis, unspecified

== ENCOUNTER → 2025-06-24 15:42 | Outpatient (BNVA) | payer MEDICARE, SELFPAY | PROVIDERS: PCP Internal Medicine; Visit Provider Internal Medicine | DX: Z00.01 Encounter for general adult medical examination with abnormal findings (principal); M47.816 Spondylosis without myelopathy or radiculopathy, lumbar region; M85.89 Other specified disorders of bone density and structure, multiple sites; J44.89 Other specified chronic obstructive pulmonary disease; M96.1 Postlaminectomy syndrome, not elsewhere classified; R63.6 Underweight; E83.110 Hereditary hemochromatosis; K52.9 Noninfective gastroenteritis and colitis, unspecified | CPT/HCPCS: 96127; 99397 ==

== ENCOUNTER 2025-06-28 06:34 | Outpatient (REF) | payer MEDICARE, SELFPAY ==
--- OUTSIDE RECORDS SUMMARY | 2024-06-16 03:30 | XMS_ITS ---
Author Organization [facility] Address [address] [place] [address] Care Team Providers Care Automotive Design Layout Drafter Name Role Phone Chantell Gamino MD Primary Care Provider Russell Paz Jr REASON FOR VISIT screening Encounters Encounter Location Date Provider Diagnosis [facility] Out[place] [address] [place] [id number] 06/16/2024 Russell Vital Jr Plan Of Treatment Next Appt Details Provider Name:Russell taylor Jr, 09/30/2025 02:35:00 PM, [address] [place] [address], Suite [facility], [place], [address], Progress Notes * KAJAL MORGAN WDOB:[birth year] (70 yo M)Acc No.[id number]:06/16/2024 COLON WITH MAC Patient: KAJAL VERA Provider: Bull Vital MD :1955 A ge:69 Y S ex:Male Date:06/16/2024 Address:[place] [facility] Pcp:Chantell Gamino MD Subjective: * Chief Complaints: [...] MD Date: Generated for Chaim naqvi/Hammad/Fide on: 06:38 AM EDT
--- OUTSIDE RECORDS SUMMARY | 2025-06-15 03:30 | XMS_ITS ---
Author Organization [facility] Address [address] [place] [phone] Care Team Providers Care Air Pollution Control Engineer Name Role Phone Stevenson BENNETT, Chantell Primary Care Provider Sam Vital Jr, Russell Jeffery [phone] REASON FOR VISIT screening, hx adenomatous , serrated polyp Encounters Encounter Location Date Provider Diagnosis [facility] [place] [place] Out[place] [address] [place] [phone] 06/15/2025 Russell Vital Jr Plan Of Treatment Next Appt Details Provider Name:Russell taylor Jr, 09/30/2025 02:35:00 PM, [address] [place] [address], Suite [facility], [place], [address], Progress Notes * KAJAL MORGAN WDOB:[birth year] (70 yo M)Acc No.[id number]:06/15/2025 COLON WITH MAC Patient: KAJAL VERA Provider: Bull Vital MD :1955 A ge:70 Y S ex:Male Date:06/15/2025 Address:[address] [id number] Pcp:Chantell Gamino MD Subjective: * Chief Complaints: [...] MD Date: Generated for Chaim naqvi/Hammad/Fide on: 06:37 AM EDT
--- OUTSIDE RECORDS SUMMARY | 2025-06-28 06:37 | XMS_ITS | Clinical Summary ---
Author Organization [facility] Address [address] [place] [address] Phone Care Team Providers Care Energy Sales Broker Name Role Phone Chantell Gamino MD Primary Care Provider Ace Bazan MD Unavailable [phone] Social History Tobacco Use Types Packs/Day Years [...] file Medical Devices Not on file Insurance [facility] MEDICARE REPLACEMENT MEDICARE REPLACEMENT [facility] MEDICARE REPLAC[place] [address] [place] [address] [place] [address] [place] [address] MEDICARE REPLACEMENT MEDICARE PART A & B MEDICARE PART A & B MEDICARE PART A & B MEDICARE PART A & B MEDICARE PART A & B MEDICARE PART A & B MEDICARE PART A & B MEDICARE PART A & B MEDICARE PART A & B Care Teams Energy Sales Broker Relationship Specialty Start Date End Date Chantell Gamino MD [address] [place] [address] [place] [address] PCP - General 09/25/24 Ace Bazan MD [address] [place], [place] [address] [address] 09/25/24 Additional Source Comments The information contained in this document represents components of the legal health record. It is not the complete legal health record.[facility]
--- OUTSIDE RECORDS SUMMARY | 2025-06-28 06:37 | XMS_ITS | Patient Health Record ---
Author Organization [facility] Address [address] [place] [phone] Care Team Providers Care Human Resources Admin Name Role Phone Stevenson BENNETT, Chantell Primary [...] Problem Screening for malignant neoplasm of colon (468787493) Encounter for screening for malignant neoplasm of colon (Z12.11) Active confirmed Problem Constipation (64153309) Constipation (K59.00) Active confirmed Problem Liver mass (581750868) Liver mass (R16.0) Active confirmed Problem Irritable bowel syndrome (91432950) Irritable bowel syndrome with constipation and diarrhea (K58.2) Active confirmed Problem Altered bowel function (96734500) Change in bowel function (R19.8) Active confirmed Problem Adrenal mass (489399303) Adrenal mass (E27.8) Active confirmed Problem Personal history of adenomatous and serrated colon polyps (Z86.0101) Active confirmed Vital Signs Temperature 98.2 degrees Fahrenheit 02/17/2025 Blood pressure diastolic 01 mm Hg 02/17/2025 Height 68 in 02/17/2025 Blood pressure systolic 001 mm Hg 02/17/2025 Weight 108.8 lbs 02/17/2025 BMI 16.54 kg/m2 02/17/2025 Encounters Encounter Location Date Provider Diagnosis [facility] [address] [place] [phone] 02/17/2025 Russell Vital Jr Encounter for screening for malignant neoplasm of colon Z12.11 ; Constipation K59.00 and Personal history of adenomatous and serrated colon polyps Z86.0101 [facility] [address] [place] [phone] 07/08/2024 Russell Vital Jr [facility] [address] [place] [phone] 05/25/2025 Russell Vital Jr Assessments Encounter Date [...] Provider Name:Russell taylor Jr, 09/30/2025 02:35:00 PM, [address] [place] [address], [address], [place], [address], Insurance Providers Payer Name Payer Address Payer Phone Subscriber Number Group Number Insured Name Patient Relationship to Insured Coverage Start Date Coverage End Date [facility] [address] [address] [place] [address] [id number] KAJAL MORGAN Self - patient is the insured MEDICAID OF [facility] [address] [place] [address] [id number] KAJAL MORGAN Self - patient is the [...]
--- OUTSIDE RECORDS SUMMARY | 2025-06-28 06:39 | XMS_ITS | Clinical Summary ---
Author Organization Patient Business Ser [facility] Address [address] [place] [address] Care Team Providers Care Welder Gun Name Role Phone Ace Bazan MD Primary Care Provider [phone] Allergies Active Allergy Reactions Criticality Noted Date Comments Adhesive Tape-Silicones Dermatitis,Rash 024 Amoxicillin Itching 08/25/2024 Gabapentin Other 08/25/2024 Too strong falls down Levofloxacin Itching 08/25/2024 Medications diclofenac (VOLTAREN) 1 % topical gel Apply 2 g topically 5 times daily Active albuterol HFA (PROVENTIL HFA;VENTOLIN HFA) 108 (90 Base) MCG/ACT inhaler Active predniSONE (DELTASONE) 20 mg tablet Active medical marijuana WIRE SETTER med Active fluticasone propionate (FLONASE) 50 mcg/actuation nasal spray Two sprays per nostril once daily Active Active Problems Problem Noted Date Diagnosed Date Acute vascular insufficiency of intestine ([facility]/H CC V24) 08/25/2024 Hereditary hemochromatosis ([facility]/HCC V24) 024 Neuropathy 08/25/2024 Open-angle glaucoma of [...] Maintenance Insurance [employer] MEDICARE Care Teams Welder Gun Relationship Specialty Start Date End Date Ace Bazan MD PCP - General 05/19/07
[2025-06-28 10:56] LABS: Cholesterol 165 mg/dL (<200); HDL Cholesterol 44 mg/dL (>40); Triglycerides 67 mg/dL (<150)
[2025-06-28 11:08] LABS: PSA,Total (Free>4and<10) 0.18 ng/mL (0.00-4.00)
== END 2025-06-28 06:35 | disposition home or self-care (01) ==
LOC: HO.HMGCLDS 06:34
PROVIDERS: PCP Internal Medicine; Visit Provider Internal Medicine
DX: R19.7 Diarrhea, unspecified (principal); E55.9 Vitamin D deficiency, unspecified; M85.89 Other specified disorders of bone density and structure, multiple sites; R63.6 Underweight; Z12.5 Encounter for screening for malignant neoplasm of prostate; Z13.6 Encounter for screening for cardiovascular disorders
CPT/HCPCS: 36415; 80061; 82306; 84153; 99212

== ENCOUNTER 2025-06-28 12:30 | Outpatient (AMB) | payer MEDICARE, SELFPAY ==
[2025-06-28 12:33] VITALS: BP 120/85; PULSE 84; TEMP 36.6; O2SAT 98; BMI 16.3
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
== END 2025-06-28 13:52 | disposition home or self-care (01) ==
PROVIDERS: PCP Internal Medicine; Visit Provider Physician Assistant Medical
DX: R19.7 Diarrhea, unspecified (principal)

== ENCOUNTER 2025-07-01 05:45 | Outpatient (REF) | payer MEDICARE, SELFPAY ==
--- OUTSIDE RECORDS SUMMARY | 2024-06-16 03:30 | XMS_ITS ---
Author Organization [facility] Address [address] [place] [address] Care Team Providers Care Decontamination Worker Name Role Phone Chantell Gamino MD Primary Care Provider Russell Paz Jr [phone] REASON FOR VISIT screening Encounters Encounter Location Date Provider Diagnosis [facility] Out[place] [address] [place] [id number] 06/16/2024 Russell Vital Jr Plan Of Treatment Next Appt Details Provider Name:Russell taylor Jr, 09/30/2025 02:35:00 PM, [address] [place] [address], Suite [facility], [place], [address], Progress Notes * KAJAL MORGAN WDOB:[birth year] (70 yo M)Acc No.[id number]:06/16/2024 COLON WITH MAC Patient: KAJAL VERA Provider: Bull Vital MD :1955 A ge:69 Y S ex:Male Date:06/16/2024 Address:[place] [facility] Pcp:Chantell Gamino MD Subjective: * Chief Complaints: [...] MD Date: Generated for Chaim naqvi/Hammad/Fide on: 07:27 AM EDT
--- OUTSIDE RECORDS SUMMARY | 2025-06-15 03:30 | XMS_ITS ---
Author Organization [facility] Address [address] [place] [phone] Care Team Providers Care Gravure Press Set Up Operator Name Role Phone Stevenson BENNETT, Chantell Primary Care Provider Sam Vital Jr, Russell Jeffery REASON FOR VISIT screening, hx adenomatous , serrated polyp Encounters Encounter Location Date Provider Diagnosis [facility] Outpatient [address] [place] [phone] 06/15/2025 Russell Vital Jr Plan Of Treatment Next Appt Details Provider Name:Russell taylor Jr, 09/30/2025 02:35:00 PM, [address] [place] [address], Suite [facility], [place], [address], Progress Notes * KAJAL MORGAN WDOB:[birth year] (70 yo M)Acc No.[id number]:06/15/2025 COLON WITH MAC Patient: KAJAL VERA Provider: Bull Vital MD :1955 A ge:70 Y S ex:Male Date:06/15/2025 Address:[id number] Pcp:Chantell Gamino MD Subjective: * Chief Complaints: [...]
--- OUTSIDE RECORDS SUMMARY | 2025-06-28 10:06 | XMS_ITS ---
Author Organization [facility] Address [address] [place] [address] [place] [address] Care Team Providers Care Turf Grower Name Role Phone Stevenson BENNETT, Chantell Primary Care Provider Russell Paz Jr REASON FOR VISIT DIARRHEA Encounters Encounter Location Date Provider Diagnosis [facility] [address] [place] [address] [place] [phone] 06/28/2025 Russell Vital Jr Diarrhea R19.7 Assessments Encounter Date Diagnosis (ICD Code) Assessment Notes Treatment Notes Treatment Clinical Notes Section Notes 06/28/2025 Diarrhea (ICD-10 - R19.7) Plan Of Treatment Pending Test Test Name Order Date STOOL WBC 06/28/2025 OVA & PARASITES (O&P) 06/28/2025 C DIFFICILE RFLX PCR 06/28/2025 GI PANEL 06/28/2025 Next Appt Details Provider Name:Russell taylor Jr, 09/30/2025 02:35:00 PM, [address] [place] [address], [address], [place], [address], Progress Notes * KAJAL MORGAN WDOB:[birth year] (70 yo M)Acc No.[id number]:06/28/2025 Patient: KAJAL VERA :1955 A ge:70 Y S ex:Male Address:[address] [place], [address] Subjective: * Chief Complaints: * D IARRHEA * Medical History: * Surgical History: * Hospitalization/Major Diagno stic Procedure: * Medications: Objective: * Vitals: * Physical Examination: Assessment: * Assessment: 1. D iarrhea - R19.7 (Primary) Plan: * Treatment: * Procedure Codes: * true * Date: Generated for Chaim naqvi/Hammad/Fide on: 07:27 AM EDT
--- OUTSIDE RECORDS SUMMARY | 2025-07-01 07:27 | XMS_ITS | Patient Health Record ---
Author Organization [facility] Address [address] [place] [address] Care Team Providers Care Pool Installer Name Role Phone Stevenson BENNETT, Chantell Primary Care Provider Russell Paz Jr Unavailable [phone] Allergies Allergen (clinical drug ingredient) Drug/Non Drug [...] Problem Screening for malignant neoplasm of colon (839319190) Encounter for screening for malignant neoplasm of colon (Z12.11) Active confirmed Problem Constipation (86673319) Constipation (K59.00) Active confirmed Problem Liver mass (869512402) Liver mass (R16.0) Active confirmed Problem Irritable bowel syndrome (66031136) Irritable bowel syndrome with constipation and diarrhea (K58.2) Active confirmed Problem Altered bowel function (09025504) Change in bowel function (R19.8) Active confirmed Problem Adrenal mass (830847506) Adrenal mass (E27.8) Active confirmed Problem Personal history of adenomatous and serrated colon polyps (Z86.0101) Active confirmed Vital Signs Temperature 98.2 degrees Fahrenheit 02/17/2025 Blood pressure diastolic 01 mm Hg 02/17/2025 Height 68 in 02/17/2025 Blood pressure systolic 001 mm Hg 02/17/2025 Weight 108.8 lbs 02/17/2025 BMI 16.54 kg/m2 02/17/2025 Encounters Encounter Location Date Provider Diagnosis [facility] [address] [place] [phone] 02/17/2025 Russell Vital Jr Encounter for screening for malignant neoplasm of colon Z12.11 ; Constipation K59.00 and Personal history of adenomatous and serrated colon polyps Z86.0101 [facility] [address] [place] [phone] 07/08/2024 Russell Vital Jr [facility] [address] [place] [phone] 05/25/2025 Russell Vital Jr [facility] [address] [place] [phone] 06/28/2025 Russell Vital Jr Diarrhea R19.7 Assessments [...] any NSAIDs 1 week before the procedure. 06/28/2025 Diarrhea (ICD-10 - R19.7) 02/17/2025 Personal history of adenomatous and serrated [...] LIVER PROFILE 06/03/2024 CBC w/o DIFF 06/03/2024 STOOL WBC 06/28/2025 OVA & PARASITES (O&P) 06/28/2025 C DIFFICILE RFLX PCR 06/28/2025 Alpha Fetoprotein 06/03/2024 Liver Fibrosis Pnl 06/03/2024 GI PANEL 06/28/2025 Future Test Test Name Order Date COLONOSCOPY 11/06/2023 COLONOSCOPY 02/17/2025 Next Appt Details Provider Name:Russell taylor , 09/30/2025 02:35:00 PM, [address] [place] [address], [address], [place], [address], Insurance Providers Payer Name Payer Address Payer Phone Subscriber Number Group Number Insured Name Patient Relationship to Insured Coverage Start Date Coverage End Date [facility] [address] [address] [place] [id number] KAJAL MORGAN Self - patient is the insured MEDICAID OF [facility] [address] [place] [address] [phone] [id number] KAJAL MORGAN Self - patient is the [...] Surgery Date(Month/Year) Repair of incarcerated left femoral daine [place] 2023 back sugery infusion L3,4,5 2022 Partial colectomy for ischemic colitis 2 006 Hospitalization History Reason Date(Month/Year)
--- OUTSIDE RECORDS SUMMARY | 2025-07-01 07:27 | XMS_ITS | Clinical Summary ---
Author Organization [facility] Address [address] [place] [address] Phone Care Team Providers Care Track Helper Name Role Phone Chantell Gamino MD Primary Care Provider Ace Bazan MD Unavailable [phone] Social History Tobacco Use Types Packs/Day Years [...] file Medical Devices Not on file Insurance [employer] REPLACEMENT MEDICARE REPLACEMENT [employer] MEDICARE [place] [address] [place] [address] [place] [address] MEDICARE REPLACEMENT MEDICARE PART A & B MEDICARE PART A & B MEDICARE PART A & B MEDICARE PART A & B MEDICARE PART A & B MEDICARE PART A & B MEDICARE PART A & B MEDICARE PART A & B MEDICARE PART A & B Care Teams Track Helper Relationship Specialty Start Date End Date Chantell Gamino MD [address] [place] [address] [place] [address] PCP - General 09/25/24 Ace Bazan MD [address] [place], [place] [address] [address] 09/25/24 Additional Source Comments The information contained in this document represents components of the legal health record. It is not the complete legal health record.[facility]
--- OUTSIDE RECORDS SUMMARY | 2025-07-01 07:28 | XMS_ITS | Clinical Summary ---
Author Organization Patient Business [facility] Address [address] [place] [address] Care Team Providers Care Building Construction Professor Name Role Phone Ace Bazan MD Primary Care Provider [phone] Allergies Active Allergy Reactions Criticality Noted Date Comments Adhesive Tape-Silicones Dermatitis,Rash 024 Amoxicillin Itching 08/25/2024 Gabapentin Other 08/25/2024 Too strong falls down Levofloxacin Itching 08/25/2024 Medications diclofenac (VOLTAREN) 1 % topical gel Apply 2 g topically 5 times daily Active albuterol HFA (PROVENTIL HFA;VENTOLIN HFA) 108 (90 Base) MCG/ACT inhaler Active predniSONE (DELTASONE) 20 mg tablet Active medical marijuana T[employer] CAMERA OPERATOR med Active fluticasone propionate (FLONASE) 50 mcg/actuation nasal spray Two sprays per nostril once daily Active Active Problems Problem Noted Date Diagnosed Date Acute vascular insufficiency of intestine ([facility]/H CC V24) 08/25/2024 Hereditary hemochromatosis ([facility]/HCC V24) 024 Neuropathy 08/25/2024 Open-angle glaucoma [...] to Health Maintenance Insurance [place] [address] Care Teams Building Construction Professor Relationship Specialty Start Date End Date Ace Bazan MD PCP - General 05/19/07
[2025-07-01 11:03] LABS: Leukocytes Stool Qualitative NEGATIVE (NEGATIVE)
[2025-07-01 11:52] LABS: E. coli EAEC Not Detected (Not Detect.); E. coli EPEC Not Detected (Not Detect.); E. coli ETEC Not Detected (Not Detect.); E. coli STEC Not Detected (Not Detect.); Shigella sp./EIEC Not Detected (Not Detect.)
[2025-07-01 11:53] LABS: CDiff Gene PCR NEGATIVE (Negative)
== END 2025-07-01 05:46 | disposition home or self-care (01) ==
LOC: HO.HMGCLNP 05:45
PROVIDERS: PCP Internal Medicine; Visit Provider Internal Medicine Gastroenterology
DX: R19.7 Diarrhea, unspecified (principal)
CPT/HCPCS: 87177; 87209; 87493; 87507; 89055

== ENCOUNTER 2025-07-22 09:45 | Outpatient (AMB) | payer MEDICARE, MEDICAID, SELFPAY ==
--- OUTSIDE RECORDS SUMMARY | 2024-06-16 02:30 | XMS_ITS ---
Author Organization [facility] Address [address] [place] [address] Care Team Providers Care Project Officer Name Role Phone Chantell Gamino MD Primary Care Provider Russell Paz Jr [phone] REASON FOR VISIT screening Encounters Encounter Location Date Provider Diagnosis [facility] Out[place] [address] [place] [id number] 06/16/2024 Russell Vital Jr Plan Of Treatment Next Appt Details Provider Name:Russell taylor Jr, 09/30/2025 02:35:00 PM, [address] [place] [address], Suite [facility], [place], [address], Progress Notes * KAJAL MORGAN WDOB:[birth year] (70 yo M)Acc No.[id number]:06/16/2024 COLON WITH MAC Patient: KAJAL VERA Provider: Bull Vital MD :1955 A ge:69 Y S ex:Male Date:06/16/2024 Address[id number] Pcp:Chantell Gamino MD Subjective: * Chief Complaints: * 1 . Screening. * Medical History: Objective: * Vitals: Assessment: Plan: * Treatment: * * The named appointment provid er may or may not be the originator of this progress note, and it is not deemed complete until electronically signed by the appointment provider. Sign off status: Pending * Provider: Bull Vital MD Date: 1 Generated for Chaim naqvi/Hammad/Fide on: 09/21/2024 11:26 AM EST
--- OUTSIDE RECORDS SUMMARY | 2025-06-15 02:30 | XMS_ITS ---
Author Organization [facility] Address [address] [place] [phone] Care Team Providers Care Bowling Ball Mold Assembler Name Role Phone Stevenson BENNETT, Chantell Primary Care Provider Sam Vital Jr, Russell Jeffery [phone] REASON FOR VISIT screening, hx adenomatous , serrated polyp Encounters Encounter Location Date Provider Diagnosis [facility] [place] Out[place] [address] [place] [phone] 06/15/2025 Russell Vital Jr Plan Of Treatment Next Appt Details Provider Name:Russell taylor Jr, 09/30/2025 02:35:00 PM, [address] [place] [address], Suite [facility], [place], [address], Progress Notes * KAJAL MORGAN WDOB:[birth year] (70 yo M)Acc No.[id number]:06/15/2025 COLON WITH MAC Patient: KAJAL VERA Provider: Bull Vital MD :1955 A ge:70 Y S ex:Male Date:06/15/2025 Address:[id number] Pcp:Chantell Gamino MD Subjective: * Chief Complaints: * 1 . Screening, hx adenomatous , serrated polyp. * Medical History: Objective: * Vitals: Assessment: Plan: * Treatment: * * The named appointment provid er may or may not be the originator of this progress note, and it is not deemed complete until electronically signed by the appointment provider. Sign off status: Pending * Provider: Bull Vital MD Date: Generated for Chaim naqvi/Hammad/Fide on: 09/21/2024 11:26 AM EST
[2025-07-22 09:55] VITALS: BP 130/82; PULSE 77; O2SAT 95; BMI 16.1
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
--- OUTSIDE RECORDS SUMMARY | 2025-07-22 11:27 | XMS_ITS | Patient Health Record ---
Author Organization [facility] Address [address] [place] [phone] Care Team Providers Care Hand Candy Molder Name Role Phone Stevenson BENNETT, Chantell Primary Care Provider Russell Paz Jr Unavailable [phone] Allergies Allergen (clinical drug ingredient) Drug/Non Drug Allergy documented on EMR Reaction Allergy Type Onset Date Status Latex Latex Unknown Allergy Active Levaquin Unknown Drug Allergy Active Results Component Value Reference Range Notes GI PANEL Reviewed date:07/05/2025 09:06:27 AM Interpretation: Performing Lab:[facility], [address] [place] [id number] Notes/Report: Campylobacter Not Detected Not Detect. Plesiomonas shigelloides Not Detected Not Detect. Salmonella Not Detected Not Detect. Vibrio Not Detected Not Detect. Vibrio Cholerae Not Detected Not Detect. Yersinia enterocolitica Not Detected Not Detect. E. coli EAEC Not Detected Not Detect. E. coli EPEC Not Detected Not Detect. E. coli ETEC Not Detected Not Detect. E. coli STEC Not Detected Not Detect. E. coli O157 Not applicable Not Detect. E. coli containing the O157 antigen are a subset of Shiga-like toxin-producing E. coli (STEC). Shigella sp./EIEC Not Detected Not Detect. Cryptosporidium Not Detected Not Detect. Cyclospora cayetanensis Not Detected Not Detect. Entamoeba histolytica Not Detected Not Detect. Giardia lamblia Not Detected Not Detect. Adenovirus F 40/41 Not Detected Not Detect. Astrovirus Not Detected Not Detect. Norovirus GI/GII Not Detected Not Detect. Rotavirus A Not Detected Not Detect. Sapovirus Not Detected Not Detect. All results must be correlated with clinical findings. Negative results do not exclude the possibility of gastrointestinal infection and should not be used as the sole basis for diagnosis, treatment, or other management decisions. Virus, bacteria, and parasite nucleic acid may persist in vivo independently of organism viability. Additionally, some organisms may be carried asymptomatically. Detection of organism targets does not imply that the corresponding organisms are infectious or are the causative agents for clinical symptoms. There is a risk of false negative values due to the presence of sequence variants in the gene targets of the assay, amplification inhibitors in specimens, or inadequate numbers of organisms for amplification. The identification of several diarrheagenic E. coli pathotypes has historically relied upon phenotypic characteristics. This panel targets genetic determinants characteristic of most pathogenic strains, but may not detect all strains having phenotypic characteristics of a pathotype. The performance of this test has not been established for monitoring treatment of infection with any of the panel organisms. This assay is performed by Multiplexed PCR, utilizing the Apothesource Array. Leukocytes Stool Qualitative Reviewed date:07/05/2025 09:06:19 AM Interpretation: Performing Lab:[address] [id number] Notes/Report: Leukocytes Stool Qualitative NEGATIVE NEGATIVE Ova and Parasite Reviewed date:07/12/2025 07:51:42 AM Interpretation: Performing Lab:[address] [phone] Notes/Report: Ova and Parasite SEE NOTE OVA AND PARASITES, CONC AND PERM SMEAR Micro Number: [id number] Test Status: Final Specimen Source: Stool Specimen Quality: Adequate CONCENTRATION 1: No ova or parasites seen TRICHROME 1: No ova or parasites seen Routine Ova and Parasite exam may not detect some parasites that occasionally cause diarrheal illness. Cryptosporidium Antigen and/or Cyclospora and Isospora Exam may be ordered to detect these parasites. One negative sample does not necessarily rule out the presence of a parasitic infection. For additional information, please refer to https://education.iconDial/faq/MQA305 (This link is being provided for informational/ educational purposes only.) THIS TEST WAS PERFORMED AT: [facility] [address] [place] [phone] ARAM STEPHENSON MD CDiff Gene PCR Reviewed date:07/05/2025 09:06:12 AM Interpretation: Performing Lab:[facility], [address] [place] [address], [place] [address] Notes/Report: CDiff Gene PCR NEGATIVE Negative If C. difficile strongly suspected despite one negative test, a second test may be sent vs. empiric treatment for C. difficile infection. Reason For Referral No Information Medications Medication [...] Problem Screening for malignant neoplasm of colon (290604748) Encounter for screening for malignant neoplasm of colon (Z12.11) Active confirmed Problem Constipation (47896218) Constipation (K59.00) Active confirmed Problem Liver mass (676582743) Liver mass (R16.0) Active confirmed Problem Irritable bowel syndrome (59023745) Irritable bowel syndrome with constipation and diarrhea (K58.2) Active confirmed Problem Altered bowel function (58786512) Change in bowel function (R19.8) Active confirmed Problem Adrenal mass (801591613) Adrenal mass (E27.8) Active confirmed Problem Personal history of adenomatous and serrated colon polyps (Z86.0101) Active confirmed Vital Signs Temperature 98.2 degrees Fahrenheit 02/17/2025 Blood pressure diastolic 01 mm Hg 02/17/2025 Height 68 in 02/17/2025 Blood pressure systolic 001 mm Hg 02/17/2025 Weight 108.8 lbs 02/17/2025 BMI 16.54 kg/m2 02/17/2025 Encounters Encounter Location Date Provider Diagnosis [facility] [address] [place] [phone] 02/17/2025 Russell Vital Jr Encounter for screening for malignant neoplasm of colon Z12.11 ; Constipation K59.00 and Personal history of adenomatous and serrated colon polyps Z86.0101 [facility] [address] [place] [phone] 05/25/2025 Russell Vital Jr [facility] [address] [place] [phone] 06/28/2025 Russell Vital Jr Diarrhea R19.7 [facility] [address] [place] [phone] 07/05/2025 Russell Vital Jr Assessments Encounter Date Diagnosis [...] Provider Name:Russell taylor Jr, 09/30/2025 02:35:00 PM, [address] [place] [address], [address], [place], [address], Insurance Providers Payer Name Payer Address Payer Phone Subscriber Number Group Number Insured Name Patient Relationship to Insured Coverage Start Date Coverage End Date [facility] [address] [address] [place] [address] [id number] KAJAL MORGAN Self - patient is the insured MEDICAID OF [facility] [address] [place] [address] [id number] KAJAL MORGAN Self - patient is the [...]
--- OUTSIDE RECORDS SUMMARY | 2025-07-22 11:27 | XMS_ITS | Clinical Summary ---
Author Organization [facility] Address [address] [place] [address] Phone Care Team Providers Care Technical Document Writer Name Role Phone Chantell Gamino MD Primary Care Provider Ace Bazan MD Unavailable [phone] Social History Tobacco Use Types Packs/Day Years [...] file Medical Devices Not on file Insurance [facility] MEDICARE REPLACEMENT MEDICARE REPLACEMENT [facility] MEDICARE [place] [address] [place] [address] [place] [place] [address] MEDICARE REPLACEMENT MEDICARE PART A & B MEDICARE PART A & B MEDICARE PART A & B MEDICARE PART A & B MEDICARE PART A & B MEDICARE PART A & B MEDICARE PART A & B MEDICARE PART A & B MEDICARE PART A & B Care Teams Technical Document Writer Relationship Specialty Start Date End Date Chantell Gamino MD [address] [place] [address] [place] [address] PCP - General 09/25/24 Ace Bazan MD [address] [place], [place] [address] [address] 09/25/24 Additional Source Comments The information contained in this document represents components of the legal health record. It is not the complete legal health record.[facility]
--- OUTSIDE RECORDS SUMMARY | 2025-07-22 11:27 | XMS_ITS | Clinical Summary ---
Author Organization Patient Business [facility] Address [address] [place] [address] Care Team Providers Care Gi Physician Name Role Phone Ace Bazan MD Primary [...] (DELTASONE) 20 mg tablet Active medical marijuana [employer] med Active fluticasone propionate (FLONASE) 50 mcg/actuation nasal spray Two sprays per nostril once daily Active Active Problems Problem Noted Date Diagnosed Date Acute vascular insufficiency of intestine ([facility] V24) 08/25/2024 Hereditary hemochromatosis ([facility] V24) 024 Neuropathy 08/25/2024 Open-angle glaucoma of [...] Maintenance Insurance [employer] MEDICARE Care Teams Gi Physician Relationship Specialty Start Date End Date Ace Bazan MD PCP - General 05/19/07
== END 2025-07-22 10:30 | disposition home or self-care (01) ==
LOC: HO.HPS 09:46
PROVIDERS: PCP Internal Medicine; Visit Provider Internal Medicine
DX: J44.89 Other specified chronic obstructive pulmonary disease (principal); Z87.891 Personal history of nicotine dependence; R91.1 Solitary pulmonary nodule
CPT/HCPCS: 99213

== ENCOUNTER → 2025-07-22 09:45 | Outpatient (BNVA) | payer MEDICARE, MEDICAID, SELFPAY | PROVIDERS: PCP Internal Medicine; Visit Provider Internal Medicine | DX: J44.89 Other specified chronic obstructive pulmonary disease (principal); Z87.891 Personal history of nicotine dependence; R91.1 Solitary pulmonary nodule | CPT/HCPCS: 99212 ==

== ENCOUNTER 2025-07-28 09:14 | Outpatient (AMB) | payer MEDICARE, MEDICAID, SELFPAY ==
--- OUTSIDE RECORDS SUMMARY | 2024-06-16 02:30 | XMS_ITS ---
Author Organization [facility] Address [address] [place] [address] Care Team Providers Care Toppiece Cutter Name Role Phone Chantell Gamino MD Primary Care Provider Sam Vital Jr, Russell Jeffery REASON FOR VISIT screening Encounters Encounter Location Date Provider Diagnosis [facility] [place] [address] [place] [id number] 06/16/2024 Russell Vital Jr Plan Of Treatment Next Appt Details Provider Name:Russell taylor Jr, 09/30/2025 02:35:00 PM, [address] [place] [address], Suite [facility], [place], [address], Progress Notes * KAJAL MORGAN WDOB:[birth year] (70 yo M)Acc No.[id number]:06/16/2024 COLON WITH MAC Patient: KAJAL VERA Provider: Bull Vital MD :1955 A ge:69 Y S ex:Male Date:06/16/2024 Address:[id number] Pcp:Chantell Gamino MD Subjective: * Chief Complaints: * S creening * The named appointment provid er may or may not be the originator of this progress note, and it is not deemed complete until electronically signed by the appointment provider. Sign off status: Pending * Provider: Bull Vital MD Date: Generated for Chaim naqvi/Hammad/Fide on: 09/27/2024 05:09 PM EST
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
[2025-07-28 09:29] VITALS: BP 119/76; PULSE 71; RESP 16; O2SAT 98; BMI 16.0
--- OUTSIDE RECORDS SUMMARY | 2025-07-28 17:09 | XMS_ITS | Clinical Summary ---
Author Organization [facility] Address [address] [place] [address] Phone Care Team Providers Care Metal Gauge Maker Name Role Phone Chantell Gamino MD Primary Care Provider Ace Bazan MD Unavailable [phone] Social History Tobacco Use Types Packs/Day Years [...] file Medical Devices Not on file Insurance [facility] MEDICARE REPLACEMENT MEDICARE REPLACEMENT [facility] MEDICARE REPLACEMENT [address] [address] [place] [address] [place] [address] MEDICARE REPLACEMENT MEDICARE PART A & B MEDICARE PART A & B MEDICARE PART A & B MEDICARE PART A & B MEDICARE PART A & B MEDICARE PART A & B MEDICARE PART A & B MEDICARE PART A & B MEDICARE PART A & B Care Teams Metal Gauge Maker Relationship Specialty Start Date End Date Chantell Gamino MD [address] [place] [address] [place] [address] PCP - General 09/25/24 Ace Bazan MD [address] [place], [place] [address] [address] 09/25/24 Additional Source Comments The information contained in this document represents components of the legal health record. It is not the complete legal health record.[facility]
--- OUTSIDE RECORDS SUMMARY | 2025-07-28 17:10 | XMS_ITS | Patient Health Record ---
Author Organization [facility] Address [address] [place] [phone] Care Team Providers Care Change Booth Attendant Name Role Phone Stevenson BENNETT, Chantell Primary Care Provider Russell Paz Jr Unavailable Allergies Allergen (clinical drug ingredient) Drug/Non Drug Allergy documented on EMR Reaction Allergy Type Onset Date Status Levaquin Unknown Drug Allergy Active Latex Latex Unknown Allergy Active Results Component Value Reference Range Notes GI PANEL Reviewed date:07/05/2025 09:06:27 AM Interpretation: Performing Lab:[facility], [address] [place] [phone] Notes/Report: Campylobacter Not Detected Not Detect. Plesiomonas [...] is performed by Multiplexed PCR, utilizing the [employer] Array. Leukocytes Stool Qualitative Reviewed date:07/05/2025 09:06:19 AM Interpretation: Performing Lab:[address] [phone] Notes/Report: Leukocytes Stool Qualitative NEGATIVE NEGATIVE Ova and Parasite Reviewed date:07/12/2025 07:51:42 AM Interpretation: Performing Lab:[address] [address] Notes/Report: Ova and Parasite SEE NOTE OVA AND PARASITES, CONC AND PERM SMEAR Micro Number: [id number] Test Status: Final Specimen Source: Stool Specimen [...] infection. For additional information, please refer to https://education.Zimride/faq/UFI985 (This link is being provided for informational/ educational purposes only.) THIS TEST WAS PERFORMED AT: [facility] [address] [place] [phone] ARAM STEPHENSON MD CDiff Gene PCR Reviewed date:07/05/2025 09:06:12 AM Interpretation: Performing Lab:[facility], [address] [place] [address], [place] [address] Notes/Report: CDiff Gene PCR NEGATIVE Negative If C. difficile strongly suspected despite one negative test, a second test may be sent vs. empiric treatment for C. difficile infection. Reason For Referral No Information Medications Medication SIG (Take, Route, Frequency, Duration) Notes Start Date End Date Status Diclofenac Sodium 1 % Gel External; Duration: 25 Active Albuterol Sulfate HFA 108 (90 Base) MCG/ACT Aerosol Solution Inhalation; Duration: 30 Act terrance Varenicline Tartrate 0.5 MG X 11 & 1 MG X 42 Miscellaneous Oral; Duration: 28 Active traMADol HCl 50 MG Tablet 1 tablet as ne eded Orally Once a day Active Symbicort 160-4.5 MCG/ACT Aerosol Inhalation; Duration: 30 Act terrance Gabapentin 300 MG Capsule Oral; Duration: 10 Active Naproxen 500 MG Tablet 1 tablet with jerry d or milk as needed Orally every 12 hrs Active Immunizations Vaccine Route Administration Date Status Comme nts Influenza Unknown 06/27/2021 Administered Influenza Unknown 05/23/2022 Administered Influenza Unknown 05/28/2023 Administered Influenza Unknown 06/06/2024 Administered Social History Tobacco Use: Social History Observation Description Date Details (start date - stop date) Former Smoker NA - NA Social History Drugs/Alcohol: Social Info Question Answer Notes Alcohol Screen Did you have a drink containing alcohol in the past year? No Points 0 Interpretation Negative Tobacco Use: Social Info Question Answer Notes Tobacco Control (Standard) Tobacco use: Former smoker Additional Details Category Social Info Options Details Miscellaneous: Marital status: Occupation: retired Problems Problem Type SNOMED Code ICD Code Onset Dates Problem Status W/U Status Risk Notes Problem Screening for malignant neoplasm of colon (395466508) Encounter for screening for malignant neoplasm of colon (Z12.11) Active confirmed Problem Constipation (81517850) Constipation (K59.00) Active confirmed Problem Liver mass (401381422) Liver mass (R16.0) Active confirmed Problem Irritable bowel syndrome (10620300) Irritable bowel syndrome with constipation and diarrhea (K58.2) Active confirmed Problem Altered bowel function (35510104) Change in bowel function (R19.8) Active confirmed Problem Adrenal mass (668463134) Adrenal mass (E27.8) Active confirmed Problem Personal history of adenomatous and serrated colon polyps (Z86.0101) Active confirmed Vital Signs Temperature 98.2 degrees Fahrenheit 02/17/2025 Blood pressure diastolic 01 mm Hg 02/17/2025 Height 68 in 02/17/2025 Blood pressure systolic 001 mm Hg 02/17/2025 Weight 108.8 lbs 02/17/2025 BMI 16.54 kg/m2 02/17/2025 Encounters Encounter Location Date Provider Diagnosis [facility] [address] [place] [phone] 02/17/2025 Russell Vital Jr Encounter for screening for malignant neoplasm of colon Z12.11 ; Constipation K59.00 and Personal history of adenomatous and serrated colon polyps Z86.0101 [facility] [address] [place] [phone] 05/25/2025 Russell Vital Jr [facility] [address] [place] [phone] 06/28/2025 Russell Vital Jr Diarrhea R19.7 [facility] [address] [place] [phone] 07/05/2025 Russell Vital Jr Assessments Encounter Date [...] Provider Name:Russell taylor Jr, 09/30/2025 02:35:00 PM, [address] [facility], [address], [place], [address], Insurance Providers Payer Name Payer Address Payer Phone Subscriber Number Group Number Insured Name Patient Relationship to Insured Coverage Start Date Coverage End Date [facility] [address] [address] [place] [address] [id number] KAJAL MORGAN Self - patient is the insured MEDICAID OF [employer] [address] [place] [address] [id number] KAJAL MORGAN Self - patient is the [...] status post embolization Surgical History Surgery Date(Month/Year) Partial colectomy for ischemic colitis 2 006 back sugery infusion L3,4,5 2022 Repair of incarcerated left femoral diane ia 2023 Hospitalization History Reason Date(Month/Year)
--- OUTSIDE RECORDS SUMMARY | 2025-07-28 17:10 | XMS_ITS | Clinical Summary ---
Author Organization Patient Business Ser [facility] Address [address] [place] [address] Care Team Providers Care Oil Distributor Tender Name Role Phone Ace Bazan MD Primary Care Provider [phone] Allergies Active Allergy Reactions Criticality Noted Date Comments Adhesive Tape-Silicones Dermatitis,Rash 024 Amoxicillin Itching 08/25/2024 Gabapentin Other 08/25/2024 Too strong falls down Levofloxacin Itching 08/25/2024 Medications diclofenac (VOLTAREN) 1 % topical gel Apply 2 g topically 5 times daily Active albuterol HFA (PROVENTIL HFA;VENTOLIN HFA) 108 (90 Base) MCG/ACT inhaler Active predniSONE (DELTASONE) 20 mg tablet Active medical marijuana MANNEQUIN MOLDER med Active fluticasone propionate (FLONASE) 50 mcg/actuation nasal spray Two sprays per nostril once daily Active Active Problems Problem Noted Date Diagnosed Date Acute vascular insufficiency of intestine ([facility] V24) 08/25/2024 Hereditary hemochromatosis ([facility] V24) 024 Neuropathy 08/25/2024 Open-angle glaucoma of [...] 02/16/2024 02/15/2017 Depression Screening 09/09/2024 COVID-19 Vaccine ( season) 2025 05/06/2024, 06/20/2023, 05/13/2022, Additional history [...] Result * Hepatitis C Screening (09/04/2016) Pathologist [facility] [place] Hepatitis C Screening abstracted us Historical Provider HEALTH MAINTENANCE Final Result from Last 3 Months or Most Recently Relevant to Health Maintenance Insurance [employer] MEDICARE Care Teams Oil Distributor Tender Relationship Specialty Start Date End Date Ace Bazan MD PCP - General 05/19/07
== END 2025-07-28 09:59 | disposition home or self-care (01) ==
LOC: HO.PMC 09:15
PROVIDERS: PCP Internal Medicine; Visit Provider Anesthesiology
DX: M51.369 Other intervertebral disc degeneration, lumbar region without mention of lumbar back pain or lower extremity pain (principal); M47.816 Spondylosis without myelopathy or radiculopathy, lumbar region; M96.1 Postlaminectomy syndrome, not elsewhere classified; G89.4 Chronic pain syndrome; M17.12 Unilateral primary osteoarthritis, left knee; M25.562 Pain in left knee
CPT/HCPCS: 99213

== ENCOUNTER 2025-07-28 09:14 | Outpatient (REF) | payer MEDICARE, MEDICAID, SELFPAY ==
--- NOTE | ~2025-07-28 | XR_ITS ---
EXAMINATION: XR KNEE, LEFT CLINICAL INFORMATION: M17.12 - Unilateral primary osteoarthritis, left knee COMPARISON: None available. TECHNIQUE: 3 views of the left knee. FINDINGS: Bone alignment is normal. No fracture or dislocation. Degenerative changes at the medial femoral tibial and patellofemoral joints with joint space narrowing and small lateral patellar osteophyte. Degenerative meniscal calcification. No joint effusion. XR/XR knee LT 3V IMPRESSION: Degenerative changes of the patellofemoral and medial femoral tibial joints. Electronically signed by: Emily Kim MD 07/28/2025 11:06 AM LES
== END 2025-07-28 09:15 | disposition home or self-care (01) ==
LOC: HO.XRAY 09:14
PROVIDERS: PCP Internal Medicine; Visit Provider Anesthesiology
DX: G89.4 Chronic pain syndrome (principal); M17.12 Unilateral primary osteoarthritis, left knee; M47.816 Spondylosis without myelopathy or radiculopathy, lumbar region; M51.360 Other intervertebral disc degeneration, lumbar region with discogenic back pain only; M96.1 Postlaminectomy syndrome, not elsewhere classified
CPT/HCPCS: 73562

== ENCOUNTER → 2025-07-28 10:00 | Outpatient (BNV) | payer MEDICARE, MEDICAID, SELFPAY | PROVIDERS: PCP Internal Medicine; Visit Provider Radiology Diagnostic Radiology | DX: M17.12 Unilateral primary osteoarthritis, left knee (principal) | CPT/HCPCS: 73562 ==

== ENCOUNTER 2025-08-02 08:29 | Outpatient (AMB) | payer MEDICARE, SELFPAY ==
--- OUTSIDE RECORDS SUMMARY | 2024-06-16 02:30 | XMS_ITS ---
Author Organization [facility] Address [address] [place] [address] Care Team Providers Care Finishing Tunnel Operator Name Role Phone Chantell Gamino MD Primary Care Provider Sam Vital Jr, Russell Jeffery REASON FOR VISIT screening Encounters Encounter Location Date Provider Diagnosis [facility] Out[facility] [address] [place] [id number] 06/16/2024 Russell Vital Jr Plan Of Treatment Next Appt Details Provider Name:Russell taylor Jr, 09/30/2025 02:35:00 PM, [address] [place] [address], Suite [facility], [place], [address], Progress Notes * KAJAL MORGAN WDOB:[birth year] (70 yo M)Acc No.[id number]:06/16/2024 COLON WITH MAC Patient: KAJAL VERA Provider: Bull Vital MD :1955 A ge:69 Y S ex:Male Date:06/16/2024 Address:[place] Pcp:Chantell Gamino MD Subjective: * Chief Complaints: * S creening * The named appointment provid er may or may not be the originator of this progress note, and it is not deemed complete until electronically signed by the appointment provider. Sign off status: Pending * Provider: Bull Vital MD Date: Generated for Chaim naqvi/Hammad/Jocelineitting on: 10/02/2024 08:42 AM EST
[2025-08-02 08:35] VITALS: BP 106/60; BMI 16.6
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
--- OUTSIDE RECORDS SUMMARY | 2025-08-02 08:43 | XMS_ITS | Patient Health Record ---
Author Organization [facility] Address [address] [place] [phone] Care Team Providers Care Teletypesetter Operator Name Role Phone Stevenson BENNETT, Chantell Primary Care Provider Russell Paz Jr [facility] [phone] Allergies Allergen (clinical drug ingredient) Drug/Non Drug Allergy documented on EMR Reaction Allergy Type Onset Date Status Levaquin Unknown Drug Allergy Active Latex Latex Unknown Allergy Active Results Component Value Reference Range Notes Leukocytes Stool Qualitative Reviewed date:07/05/2025 09:06:19 AM Interpretation: Performing Lab:[address] [phone] Notes/Report: Leukocytes Stool Qualitative NEGATIVE NEGATIVE Ova and Parasite Reviewed date:07/12/2025 07:51:42 AM Interpretation: Performing Lab:[address] [phone] Notes/Report: Ova and Parasite SEE NOTE OVA AND PARASITES, CONC AND PERM SMEAR Micro Number: [id number] Test Status: Final Specimen Source: Stool Specimen [...] infection. For additional information, please refer to [email or web address]/faq/[email or web address] (This link is being provided for informational/ educational purposes only.) THIS TEST WAS PERFORMED AT: [facility] [address] [place] [phone] ARAM STEPHENSON MD CDiff Gene PCR Reviewed date:07/05/2025 09:06:12 AM Interpretation: Performing Lab:[facility], [address] [place] [phone] Notes/Report: CDiff Gene PCR NEGATIVE Negative If C. difficile strongly suspected despite one negative test, a second test may be sent vs. empiric treatment for C. difficile infection. GI PANEL Reviewed date:07/05/2025 09:06:27 AM Interpretation: Performing Lab:[facility], [address] [place] [phone] Notes/Report: Campylobacter Not Detected Not Detect. Plesiomonas [...] is performed by Multiplexed PCR, utilizing the [employer] Array. Reason For Referral No Information Medications Medication [...] Problem Screening for malignant neoplasm of colon (532980569) Encounter for screening for malignant neoplasm of colon (Z12.11) Active confirmed Problem Constipation (49394872) Constipation (K59.00) Active confirmed Problem Liver mass (736876268) Liver mass (R16.0) Active confirmed Problem Irritable bowel syndrome (17743458) Irritable bowel syndrome with constipation and diarrhea (K58.2) Active confirmed Problem Altered bowel function (62849898) Change in bowel function (R19.8) Active confirmed Problem Adrenal mass (947233673) Adrenal mass (E27.8) Active confirmed Problem Personal history of adenomatous and serrated colon polyps (Z86.0101) Active confirmed Vital Signs Temperature 98.2 degrees Fahrenheit 02/17/2025 Blood pressure diastolic 01 mm Hg 02/17/2025 Height 68 in 02/17/2025 Blood pressure systolic 001 mm Hg 02/17/2025 Weight 108.8 lbs 02/17/2025 BMI 16.54 kg/m2 02/17/2025 Encounters Encounter Location Date Provider Diagnosis [facility] [address] [place] [phone] 02/17/2025 Russell Vital Jr Encounter for screening for malignant neoplasm of colon Z12.11 ; Constipation K59.00 and Personal history of adenomatous and serrated colon polyps Z86.0101 [facility] [address] [place] [phone] 05/25/2025 Russell Vital Jr [facility] [address] [place] [phone] 06/28/2025 Russell Vital Jr Diarrhea R19.7 [facility] [address] [place] [phone] 07/05/2025 Russell Vital Jr Assessments Encounter Date [...] Name:Russell taylor Jr, 09/30/2025 02:35:00 PM, [address] [facility], [address], [place], [address], Insurance Providers Payer Name Payer Address Payer Phone Subscriber Number Group Number Insured Name Patient Relationship to Insured Coverage Start Date Coverage End Date [facility] [address] [address] [place] [address] [id number] KAJAL MORGAN Self - patient is the insured MEDICAID OF [employer] [address] [place] [address] [id number] KAJAL MORGAN Self - patient is the [...]
--- OUTSIDE RECORDS SUMMARY | 2025-08-02 08:43 | XMS_ITS | Clinical Summary ---
Author Organization Patient Business Ser [facility] Address [address] [place] [address] Care Team Providers Care E Learning Manager Name Role Phone Ace Bazan MD Primary Care Provider [phone] Allergies Active Allergy Reactions Criticality Noted Date Comments Adhesive Tape-Silicones Dermatitis,Rash 024 Amoxicillin Itching 08/25/2024 Gabapentin Other 08/25/2024 Too strong falls down Levofloxacin Itching 08/25/2024 Medications diclofenac (VOLTAREN) 1 % topical gel Apply 2 g topically 5 times daily Active albuterol HFA (PROVENTIL HFA;VENTOLIN HFA) 108 (90 Base) MCG/ACT inhaler Active predniSONE (DELTASONE) 20 mg tablet Active medical marijuana STRAIGHTENING ROLL OPERATOR med Active fluticasone propionate (FLONASE) 50 mcg/actuation nasal spray Two sprays per nostril once daily Active Active Problems Problem Noted Date Diagnosed Date Acute vascular insufficiency of intestine ([facility] V24) 08/25/2024 Hereditary hemochromatosis ([facility] V24) 024 Neuropathy 08/25/2024 Open-angle glaucoma of [...] Result * Hepatitis C Screening (09/04/2016) Pathologist [facility] Hepatitis C Screening abstracted us Historical Provider HEALTH MAINTENANCE Final Result from Last 3 Months or Most Recently Relevant to Health Maintenance Insurance [employer] [address] Care Teams E Learning Manager Relationship Specialty Start Date End Date Ace Bazan MD PCP - General 05/19/07
--- OUTSIDE RECORDS SUMMARY | 2025-08-02 08:43 | XMS_ITS | Clinical Summary ---
Author Organization [facility] Address [address] [place] [address] Phone Care Team Providers Care Brazer Resistance Name Role Phone Chantell Gamino MD Primary Care Provider Ace Bazan MD Unavailable [phone] Social History Tobacco Use Types Packs/Day Years [...] file Medical Devices Not on file Insurance [facility] MEDICARE REPLACEMENT MEDICARE REPLACEMENT [facility] MEDICARE [place] [address] [place] [id number] [place] [place] [id number] MEDICARE REPLACEMENT MEDICARE PART A & B MEDICARE PART A & B MEDICARE PART A & B MEDICARE PART A & B MEDICARE PART A & B MEDICARE PART A & B MEDICARE PART A & B MEDICARE PART A & B MEDICARE PART A & B Care Teams Brazer Resistance Relationship Specialty Start Date End Date Chantell Gamino MD [address] [place] [address] [place] [address] PCP - General 09/25/24 Ace Bazan MD [address] [place], [place] [address], [place] [address] 09/25/24 Additional Source Comments The information contained in this document represents components of the legal health record. It is not the complete legal health record.[facility]
== END 2025-08-02 09:25 | disposition home or self-care (01) ==
LOC: HO.HSMS 08:30
PROVIDERS: PCP Internal Medicine; Visit Provider Nurse Practitioner Family
DX: G62.9 Polyneuropathy, unspecified (principal); R25.1 Tremor, unspecified; M43.16 Spondylolisthesis, lumbar region; M47.816 Spondylosis without myelopathy or radiculopathy, lumbar region
CPT/HCPCS: 99214

== ENCOUNTER → 2025-08-02 08:29 | Outpatient (BNVA) | payer MEDICARE, SELFPAY | PROVIDERS: PCP Internal Medicine; Visit Provider Nurse Practitioner Family | DX: G62.9 Polyneuropathy, unspecified (principal); R25.1 Tremor, unspecified; M43.16 Spondylolisthesis, lumbar region; M47.816 Spondylosis without myelopathy or radiculopathy, lumbar region | CPT/HCPCS: 99212 ==

== ENCOUNTER 2025-08-13 07:57 | Outpatient (REF) | payer MEDICARE, SELFPAY ==
--- OUTSIDE RECORDS SUMMARY | 2024-06-16 02:30 | XMS_ITS ---
Author Organization [facility] Address [address] [place] [address] Care Team Providers Care Fruit Sprayer Name Role Phone Chantell Gamino MD Primary Care Provider Sam Vital Jr, Russell Jeffery REASON FOR VISIT screening Encounters Encounter Location Date Provider Diagnosis [facility] Outpatient [address] [place] [id number] 06/16/2024 Russell Vital Jr Plan Of Treatment Next Appt Details Provider Name:Russell taylor Jr, 09/30/2025 02:35:00 PM, [address] [place] [address], Suite [facility], [place], [address], Progress Notes * KAJAL MORGAN WDOB:[birth year] (70 yo M)Acc No.[id number]:06/16/2024 COLON WITH MAC Patient: KAJAL VERA Provider: Bull Vital MD :1955 A ge:69 Y S ex:Male Date:06/16/2024 Address:[place] Pcp:Chantell Gamino MD Subjective: * Chief Complaints: * S creening * The named appointment provid er may or may not be the originator of this progress note, and it is not deemed complete until electronically signed by the appointment provider. Sign off status: Pending * Provider: Bull Vital MD Date: 1 Generated for Chaim naqvi/Hammad/Jocelineitting on: 10/14/2024 08:09 AM EST
--- OUTSIDE RECORDS SUMMARY | 2025-08-13 08:09 | XMS_ITS | Patient Health Record ---
Author Organization [facility] Address [address] [place] [phone] Care Team Providers Care Musical Instrument Mechanic Name Role Phone Stevenson BENNETT, Chantell Primary Care Provider Russell Paz Jr Unavailable [phone] Allergies Allergen (clinical drug ingredient) Drug/Non Drug Allergy documented on EMR Reaction Allergy Type Onset Date Status Levaquin Unknown Drug Allergy Active Latex Latex Unknown Allergy Active Results Component Value Reference Range Notes GI PANEL Reviewed date:07/05/2025 09:06:27 AM Interpretation: Performing Lab:[facility], [address] [place] [id number] Notes/Report: Campylobacter Not Detected Not Detect. Plesiomonas [...] is performed by Multiplexed PCR, utilizing the Endra Array. Leukocytes Stool Qualitative Reviewed date:07/05/2025 09:06:19 AM Interpretation: Performing Lab:[address] [address] Notes/Report: Leukocytes Stool Qualitative NEGATIVE NEGATIVE Ova and Parasite Reviewed date:07/12/2025 07:51:42 AM Interpretation: Performing Lab:[address] [phone] Notes/Report: Ova and Parasite SEE NOTE OVA AND PARASITES, CONC AND PERM SMEAR Micro Number: [id number] Test Status: Final Specimen Source: Stool Specimen [...] infection. For additional information, please refer to https://education.SDI-Solution/faq/GLQ480 (This link is being provided for informational/ educational purposes only.) THIS TEST WAS PERFORMED AT: [facility] [address] [place] [phone] ARAM STEPHENSON MD CDiff Gene PCR Reviewed date:07/05/2025 09:06:12 AM Interpretation: Performing Lab:[facility], [address] [place] [address], [place] [address] Notes/Report: CDiff Gene PCR NEGATIVE Negative If [...] Problem Screening for malignant neoplasm of colon (691379118) Encounter for screening for malignant neoplasm of colon (Z12.11) Active confirmed Problem Constipation (20437469) Constipation (K59.00) Active confirmed Problem Liver mass (480738368) Liver mass (R16.0) Active confirmed Problem Irritable bowel syndrome (71395592) Irritable bowel syndrome with constipation and diarrhea (K58.2) Active confirmed Problem Altered bowel function (93472454) Change in bowel function (R19.8) Active confirmed Problem Adrenal mass (291023641) Adrenal mass (E27.8) Active confirmed Problem Personal [...] [facility] [address] [place] [phone] 02/17/2025 Russell Vital Jr Encounter for screening for malignant neoplasm of colon Z12.11 ; Constipation K59.00 and Personal history of adenomatous and serrated colon polyps Z86.0101 [facility] [address] [place] [phone] 05/25/2025 Russell Vital Jr [facility] [address] [place] [phone] 06/28/2025 Russell Vital Jr Diarrhea R19.7 [facility] [address] [place] [phone] 07/05/2025 Russell Vital Jr Assessments Encounter Date [...] Name:Russell taylor Jr, 09/30/2025 02:35:00 PM, [address] [facility], [address], [place], [address], Insurance Providers Payer Name Payer Address Payer Phone Subscriber Number Group Number Insured Name Patient Relationship to Insured Coverage Start Date Coverage End Date [facility] [address] [address] [place] [address] [id number] KAJAL MORGAN Self - patient is the insured [employer] [address] [place] [address] [id number] KAJAL MORGAN Self - patient is the [...]
--- OUTSIDE RECORDS SUMMARY | 2025-08-13 08:09 | XMS_ITS | Clinical Summary ---
Author Organization [facility] Address [address] [place] [phone] Phone Care Team Providers Care Bean Snapper Name Role Phone Chantell Gamino MD Primary Care Provider Ace Bazan MD Unavailable [phone] Social History Tobacco Use Types Packs/Day Years [...] file Medical Devices Not on file Insurance [facility] MEDICARE REPLACEMENT MEDICARE REPLACEMENT [facility] MEDICARE [place]PLAC[place] [address] [address] [place] [address] MEDICARE REPLACEMENT MEDICARE PART A & B MEDICARE PART A & B MEDICARE PART A & B MEDICARE PART A & B MEDICARE PART A & B MEDICARE PART A & B MEDICARE PART A & B MEDICARE PART A & B MEDICARE PART A & B Care Teams Bean Snapper Relationship Specialty Start Date End Date Chantell Gamino MD [address] [place] [address] [place] [address] PCP - General 09/25/24 Ace Bazan MD [address] [place], [place] [address], [place] [address] 09/25/24 Additional Source Comments The information contained in this document represents components of the legal health record. It is not the complete legal health record.[facility]
[2025-08-13 08:36] LABS: MANUAL DIFF FLAG NO
[2025-08-13 08:46] LABS: Hematocrit 47.5 % (42.0-52.0); Hemoglobin 15.9 g/dl (14.0-18.0); Imm Gran Abs Auto 0.02 X10*3/uL (0.00-0.03); Imm Gran Pct Auto 0.3 % (0.0-0.4); Lymphocytes Absolute Auto 1.1 X10*3/uL (1.2-4.9); Mean Corpuscular HGB Conc 33.5 g/dl (31.0-36.0); Mean Corpuscular Hemoglobin 33.0 pg (27.0-33.0); Mean Corpuscular Volume 98.5 fL (80.0-98.0); NRBC Abs Auto 0.000 X10*3/uL (0.0-0.012); NRBC Pct Auto 0.0 /100WBC (0.0-0.2); Platelet Count 242 X10*3/uL (160-400); Red Blood Count 4.82 X10*6/uL (4.60-5.80); White Blood Count 6.8 X10*3/uL (4.8-10.8)
[2025-08-13 09:42] LABS: Alanine Aminotransferase 20 U/L (0-40); Albumin Level 4.3 g/dL (3.5-5.0); Alkaline Phosphatase 124 U/L (39-117); Anion Gap 13 (12-20); Aspartate Amino Transferase 24 U/L (5-37); Blood Urea Nitrogen 13 mg/dL (9-16); Calcium 9.6 mg/dL (8.4-10.2); Carbon Dioxide 27 mmol/L (22-29); Chloride 107 mmol/L (96-108); Estimated Glomerular Filt Rate > 60; Iron 182 mcg/dL (45-160); Percent Iron Saturation 72 % (15-50); Potassium 4.1 mmol/L (3.3-5.1); Sodium 143 mmol/L (135-145); Total Iron Binding Capacity 252 mcg/dL (228-428); Total Protein 6.9 g/dL (6.5-8.0); Unsaturated Iron Binding 70 ug/dL
[2025-08-13 09:53] LABS: Ferritin 19 ng/mL (20-250)
== END 2025-08-13 07:58 | disposition home or self-care (01) ==
LOC: HO.BBR 07:57
PROVIDERS: PCP Internal Medicine; Visit Provider Internal Medicine Medical Oncology
DX: E83.110 Hereditary hemochromatosis (principal)
CPT/HCPCS: 36415; 80053; 82728; 83540; 85025